=== PATIENT | female | born 1940 | race Caucasian/White ===

== ENCOUNTER 2017-02-22 09:08 | Emergency (ER) | payer MEDICARE ==
[~2017-02-22] VITALS: Ht 160 cm; Wt 63.0 kg
[~2017-02-22 09:08] MED LIST: CIPR500T89 PO; CRANPOW2 PO; DOCU10CA PO; FLAG250T PO; FLORAJEN PO; LORT5TAB PO; LOSA100T36 PO; MIRA3350 PO; ONGL1TAB9 PO; SUPRSOL2 PO
[2017-02-22] MEDS ORDERED: MORPHINE 4 MG/ML 1ML SYRINGE IV ONE (09:45)
[2017-02-22] MEDS ORDERED: ONDANSETRON 4MG/2ML VIAL (J2405) IV ONE ×2 (09:45→11:00)
[2017-02-22 10:28] LABS: BASO % 0.3 % (0.0-1.0); EOS # 0.1 K/mm3 (0.0-0.50); EOS % 1.7 % (0.0-3.0); LARGE UNSTAINED CELL # 0.1 K/mm3 (0.0-0.4); LYMPH # 1.4 K/mm3 (1.5-4.5); LYMPH % 20.5 % (24.0-44.0); MEAN CORPUSCULAR HEMOGLOBIN 33.1 pg (27.0-33.0); MEAN CORPUSCULAR HGB CONC 33.3 g/dl (32.0-36.5); MEAN CORPUSCULAR VOLUME 99.4 fl (80.0-96.0); MONO # 0.4 K/mm3 (0.0-0.8); NEUTROPHILS # 4.9 K/mm3 (1.8-7.7); NEUTROPHILS % 69.4 % (36.0-66.0); PLATELET COUNT, AUTOMATED 195 k/mm3 (150-450); RED CELL DISTRIBUTION WIDTH 12.5 % (11.5-14.5)
[2017-02-22] MEDS ORDERED: fentaNYL 100 MCG/2 ML INJECTION (J3010) IV ONE (10:30)
[2017-02-22 10:32] LABS: ALBUMIN 3.8 GM/DL (3.2-5.2); ALBUMIN/GLOBULIN RATIO 1.12 (1.00-1.93); BILIRUBIN,DIRECT 0.2 MG/DL (0.0-0.2); BILIRUBIN,TOTAL 1.2 MG/DL (0.2-1.0); CALCIUM LEVEL 9.2 MG/DL (8.8-10.2); CREATININE FOR GFR 1.11 MG/DL (0.55-1.02); GLOMERULAR FILTRATION RATE 51.2 (>39); TOTAL PROTEIN 7.2 GM/DL (6.4-8.2)
[2017-02-22] MEDS ORDERED: ISOVUE-370 76% 100ML VIAL (Q9967) As Ordered ONE (10:42)
[2017-02-22 10:43] LABS: INR 1.06
--- NOTE | 2017-02-22 11:39 | REP ---
CT ABDOMEN AND PELVIS WITH IV BUT WITHOUT ORAL CONTRAST: HISTORY: Left-sided abdominal pain. History of colon carcinoma. Comparison CT study is from November 15, 2014. CT contrast dose: 100 mL of Isovue [address] FINDINGS: Digital preliminary advance scout radiograph shows an unremarkable bowel gas pattern. The lung bases remain essentially clear. There is no evidence of pleural effusion. No focal liver mass lesion is seen. The liver and spleen are normal in size and homogeneous in texture. The gallbladder is unremarkable. No pancreatic lesion is seen. No adrenal abnormality is observed on either side. There is an infiltrative appearance of the small bowel mesenteric fat again noted. There are mesenteric lymph nodes visible within this infiltrative fat. These lymph nodes are less prominent in size than on the December 03, 2014 prior study. The patient is status post sigmoid colon resection and an anastomosis. The large area of mural thickening seen in the sigmoid colon on the [address] study is no longer apparent. There is no evidence of diverticulitis. Left colonic diverticulosis is seen. No adenopathy is seen in this region. There is some right colonic diverticulosis noted as well. A ventral hernia is seen transmitting abdominal fat on today's CT study. There is mild bilateral hydronephrosis left a little more so than right. The right-sided findings are unchanged. The left-sided hydronephrosis is more prominent today and the left proximal ureter is dilated. There is a ureteral stone visible in the left at the level of the upper sacrum. The stone measures 5.4 mm in diameter. Exam is otherwise unremarkable. IMPRESSION: 1. Obstructive 5 mm stone in the left mid ureter with hydronephrosis. 2. Status post sigmoid colon resection. Pancolonic diverticulosis without evidence of diverticulitis. 3. 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 Associated mesenteric lymph nodes have regressed somewhat since the prior study. No evidence of recurrent or metastatic malignancy. Signed by Edward Colunga MD 02/22/2017 01:19 P
--- NOTE | 2017-02-22 12:02 | ECGEPIP ---
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
[2017-02-22] MEDS ORDERED: PERC5TAB6 PO (16:09)
[2017-02-22] MEDS ORDERED: FLOM5CAP PO (16:10)
[2017-02-22] MEDS ORDERED: COLA100C3 PO (16:11)
[2017-02-22 16:34] VITALS: BP 148/73
== END 2017-02-22 16:36 | disposition home or self-care (01) ==
LOC: M ED 09:49
DX: N13.2 Hydronephrosis with renal and ureteral calculous obstruction (principal); M79.3 Panniculitis, unspecified; I10 Essential (primary) hypertension; E11.9 Type 2 diabetes mellitus without complications; Z85.72 Personal history of non-Hodgkin lymphomas; Z90.49 Acquired absence of other specified parts of digestive tract; Z90.89 Acquired absence of other organs

== ENCOUNTER 2017-02-24 11:02 | Inpatient (IN) | payer MEDICARE ==
[~2017-02-24] VITALS: Ht 160 cm; Wt 65.9 kg
[~2017-02-24 11:02] MED LIST changes: +COLA100C3 PO; +FLOM5CAP PO; +PERC5TAB6 PO
[2017-02-24] MEDS ORDERED: fentaNYL 100 MCG/2 ML INJECTION (J3010) IV ONE (11:45)
[2017-02-24] MEDS ORDERED: ONDANSETRON 4MG/2ML VIAL (J2405) IV ONE (11:45)
[2017-02-24] MEDS ORDERED: ASPIRIN 81 MG CHEW TABLET PO ONE (11:45)
[2017-02-24] MEDS ORDERED: DOCU100C PO (11:58)
[2017-02-24] MEDS ORDERED: FLOM5CAP PO (11:58)
[2017-02-24] MEDS ORDERED: VITA-121 PO (11:58)
[2017-02-24] MEDS ORDERED: VITA400C2 PO (11:58)
[2017-02-24] MEDS ORDERED: VITA-130 PO (11:58)
[2017-02-24] MEDS ORDERED: OXYC1TAB23 PO (11:58)
[2017-02-24] MEDS ORDERED: VITA500T3 PO (11:58)
--- NOTE | 2017-02-24 12:13 | REP ---
Portable chest, 02/24/2017, at 07:00 a.m., single AP view the patient sitting: Comparison is 08/25/2014. The lung garcia are clear. The cardiac size is normal. The carrie, mediastinum, and bony thorax are unremarkable. Impression: Negative portable chest. There is no interval change. Signed by Charlie Flynn MD 02/24/2017 12:05 P
[2017-02-24 12:21] LABS: BASO % 0.2 % (0.0-1.0); EOS # 0.1 K/mm3 (0.0-0.50); EOS % 0.7 % (0.0-3.0); LARGE UNSTAINED CELL # 0.1 K/mm3 (0.0-0.4); LARGE UNSTAINED CELL % 0.6 % (0.0-4.0); LYMPH # 0.6 K/mm3 (1.5-4.5); MEAN CORPUSCULAR HEMOGLOBIN 33.9 pg (27.0-33.0); MEAN CORPUSCULAR HGB CONC 34.1 g/dl (32.0-36.5); MEAN CORPUSCULAR VOLUME 99.6 fl (80.0-96.0); MONO # 0.3 K/mm3 (0.0-0.8); MONO % 3.6 % (0.0-5.0); NEUTROPHILS # 8.5 K/mm3 (1.8-7.7); PLATELET COUNT, AUTOMATED 139 k/mm3 (150-450); RED CELL DISTRIBUTION WIDTH 12.5 % (11.5-14.5); WHITE BLOOD COUNT 9.6 K/mm3 (4.0-10.0)
[2017-02-24 12:32] LABS: ALBUMIN 3.7 GM/DL (3.2-5.2); ALBUMIN/GLOBULIN RATIO 1.03 (1.00-1.93); ALKALINE PHOSPHATASE 94 U/L (45-117); ALT/SGPT 35 U/L (12-78); ANION GAP 12 MEQ/L (8-16); AST/SGOT 20 U/L (15-37); BILIRUBIN,DIRECT 0.3 MG/DL (0.0-0.2); BILIRUBIN,TOTAL 2.5 MG/DL (0.2-1.0); BLOOD UREA NITROGEN 20 MG/DL (7-18); CALCIUM LEVEL 8.8 MG/DL (8.8-10.2); CARBON DIOXIDE LEVEL 23 MEQ/L (21-32); CHLORIDE LEVEL 102 MEQ/L (98-107); CREATININE FOR GFR 1.83 MG/DL (0.55-1.02); GLOMERULAR FILTRATION RATE 28.7 (>39); GLUCOSE, FASTING 163 MG/DL (83-110); SODIUM LEVEL 137 MEQ/L (136-145); TOTAL PROTEIN 7.3 GM/DL (6.4-8.2)
[2017-02-24] MEDS ORDERED: PERCOCET 5MG/325MG TAB PO PRN (13:30)
[2017-02-24] MEDS ORDERED: GLUCAGON FOR INJ 1 MG VIAL (J1610) SC PRN (13:30)
[2017-02-24] MEDS ORDERED: cefTRIAXone SOD 1 GM in D5W MINI-BAG PLUS 50 ML IV ONE (13:30)
[2017-02-24] MEDS ORDERED: MORPHINE 2 MG/ML 1ML SYRINGE IV PRN (13:30)
[2017-02-24] MEDS ORDERED: ONDANSETRON 4 MG TAB (S0181) PO PRN (13:30)
[2017-02-24] MEDS ORDERED: ONDANSETRON 4MG/2ML VIAL (J2405) IV PRN ×2 (13:30→15:30)
[2017-02-24] MEDS ORDERED: ACETAMINOPHEN 650 MG SUPP PR ONE (13:30)
[2017-02-24] MEDS ORDERED: DEXTROSE 50% 50 ML SYRINGE IV PRN (13:30)
[2017-02-24] MEDS ORDERED: GLUCOSE 4 GM CHEW TABLET PO PRN (13:30)
[2017-02-24] MEDS ORDERED: LIDOCAINE 2% 5ML JELLY UROJET As Ordered ONE (13:50)
[2017-02-24] MEDS ORDERED: MIDAZOLAM INJ 2 MG/2 ML VIAL (J2250) As Ordered ONE (13:53)
[2017-02-24] MEDS ORDERED: fentaNYL 100 MCG/2 ML INJECTION (J3010) As Ordered ONE (13:53)
--- NOTE | 2017-02-24 13:53 | REP ---
Supine abdomen single AP view: Comparisons are the cut out press operator film for barium enema dated 08/26/[address] abdomen and pelvis dated 02/22/2017. There are multiple calcifications inferiorly in the pelvis on the left, unchanged from the prior plain film study, likely phleboliths. There is a faintly visible calcification superiorly in the pelvis on the left, possibly the calcification identified in the distal left ureter on the comparison CT. There are surgical staple lines in the midline of the pelvis and a surgical homeostasis clip , not present previously. The bowel gas pattern is normal. The skeletal structures are unremarkable. Signed by Charlie Flynn MD 02/24/2017 01:44 P
[2017-02-24] MEDS: NS 1,000 ML IV SCH (14:16)
[2017-02-24] MEDS ORDERED: PROPOFOL 200 MG/20 ML VIAL As Ordered ONE (14:58)
[2017-02-24] MEDS ORDERED: KETOROLAC 30 MG/ML VIAL (J1885) IV PRN (15:15)
--- NOTE | 2017-02-24 15:15 | REP ---
Retrograde pyelogram: There is a single intraoperative fluoroscopic views demonstrating a left ureteral stent with the proximal and distal pigtails in satisfactory locations. Fluoroscopic exposure time is 17 seconds. Fluoroscopic images are performed with last image hold technology. These images require no additional radiation. Signed by Charlie Flynn MD 02/24/2017 03:07 P
--- NOTE | 2017-02-24 15:18 | HPEPDOC ---
Medical History and Physical Date of Admission Feb 24, 2017 at 13:23 History and Physical HISTORY AND PHYSICAL Date of admission: 02/24/2017 PCP: Dr. Dubon Chief complaint: Left-sided flank and abdominal pain HPI: 76-year-old female with diabetes mellitus type 2, hypertension, hyperlipidemia, history of B-cell lymphoma status post sigmoid resection and chemotherapy who presented to the emergency department with continued pain and malaise. The patient said that she awoke on Saturday morning and was feeling poorly, but prior to that had felt well. She has a history of kidney stones approximately 10-15 years ago, and on Saturday, she was immediately able to identify the pain she felt as kidney stone pain. She came to the emergency department at that time, and a CT of the abdomen and pelvis showed a 5 mm obstructing stone in the left ureter that was causing hydronephrosis. By report of the ED, they discussed the case with the urologist publication distributor at the time, and the decision was made that the patient could be discharged home. The patient states that since going home, she has continued to be in pain and the pain medicine that she was sent home with has not alleviated it at all. The pain is located in her left flank and abdomen. She has been taking the Flomax as prescribed, and consequently, she states that she leaks almost constant urine. She has had no appetite and has not had anything to eat since yesterday. She has been nauseated, but states that she has only vomited occasionally when the pain gets really bad. Additionally, she reports a little bit of chest pain upon arrival at the ED today. However, she denies any prior episodes of chest pain, and when I interview her, she states that it has already resolved. She thinks that this might be secondary to some anxiety that she was having. 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 Negative for hypertension Social history: The patient currently lives alone. She denies any history of tobacco use. She does not drink any alcohol or use any drugs. Allergies: No known drug allergy Review of systems: General: Positive for chills, negative for fever Eyes: Negative for vision changes and ocular discharge ENT: Negative For sore throat and nose bleed Cardiovascular: Positive for chest pain that has now resolved, negative for palpitations Respiratory: Negative for cough, shortness of breath GI: Positive for nausea and vomiting, negative for diarrhea and constipation Musculoskeletal: Negative for neck pain, positive for left lower back pain Skin: Negative for rash Neuro: Positive for dizziness, negative for headache, numbness, tingling Psych: Negative for depression and suicidal ideation Endocrine: Positive for polyuria : Negative for dysuria Heme: Negative for bleeding Home meds: See below Physical exam: Vital signs: Vital Sign - Last 24 Hours 02/24/17 02/24/17 02/24/17 02/24/17 11:03 11:21 11:31 11:32 Temp 99.8 100.5 Pulse 78 84 Resp 16 B/P (MAP) 142/71 (94) Pulse Ox 98 99 O2 Delivery Room Air 02/24/17 02/24/17 02/24/17 02/24/17 11:39 12:02 12:03 12:08 Pulse 92 Resp 16 B/P (MAP) 169/87 (114) 159/79 (105) Pulse Ox 95 02/24/17 02/24/17 02/24/17 02/24/17 12:17 12:23 12:32 12:47 Pulse 94 96 94 B/P (MAP) 152/76 (101) Pulse Ox 92 94 94 02/24/17 02/24/17 02/24/17 02/24/17 12:53 13:02 13:08 13:13 Temp 102.2 Pulse 96 B/P (MAP) 139/70 (93) 141/70 (93) Pulse Ox 95 02/24/17 02/24/17 02/24/17 02/24/17 13:23 13:38 13:53 14:08 Pulse 94 92 92 112 B/P (MAP) 124/67 (86) 121/70 (87) 120/69 (86) Pulse Ox 95 94 96 96 02/24/17 14:18 Temp 100.6 B/P (MAP) Gen.: awake, alert, no acute distress Eyes: Extraocular movements intact, normal sclera ENT: Moist mucous membranes Cardiovascular: RRR, no murmurs rubs or gallops Lungs: clear to auscultation bilaterally, no rales, rhonchi, or wheeze Abdomen: Soft, decreased BS, TTP of left CVA and left upper and lower quadrants Musculoskeletal: normal range of motion Extremities: No peripheral edema Neuro: alert and oriented 3, normal speech, no focal deficits Psych: Normal mood with congruent affect Labs and radiology: See below BUN 20, creatinine 1.8 WBC 9.6, platelets 139 Troponin negative Lactate 1.5 UA shows 2+ leuk esterase, 21 wbc's, 1+ bacteria Chest x-ray is negative, CT of the abdomen and pelvis from 2 days ago she started obstructive 5 mm stone in the left ureter with hydronephrosis EKG: The machine read this as A. fib at a rate of 88, but upon review of the EKG myself, and able to identify P waves and the majority of the EKG and there is only one small portion that appears that it may have some artifact that the machine read as possible A. fib Assessment and plan: 76-year-old female with diabetes mellitus type 2, hypertension, hyperlipidemia, history of B-cell lymphoma status post sigmoid resection and chemotherapy who is admitted with a urinary tract infection and JASON secondary to obstructing left kidney stone. 1. Urinary tract infection: The patient has been febrile, but she currently has a normal white count. She has received 1 dose of Rocephin, which we will continue. Blood and urine cultures are pending. Her initial lactate is normal, but we will repeat one in several hours. 2. Obstructing left kidney stone: Upon my interview with the patient, I had spoken to Dr. Morales of urology, who planned to do an emergency stent today. By the time I am able to dictate this note, Dr. Morales has called me to inform me that he has already completed the stent without any complications. We will continue the patient's Flomax and IV fluids and allow her to eat as tolerated since the procedure is now completed. We appreciate the assistance of Dr. Morales. 3. Acute kidney injury: Baseline creatinine appears to be normal. Creatinine today is 1.8. We will continue IV fluids, but I expect this to improve now that a stent has been placed. Holding home ARB. 4. Chest pain: The patient had a brief episode of chest pain when she arrived in the ER. A troponin is negative, and an EKG does not show any evidence of acute infarct or ischemia. We will continue to trend the troponins and monitor the patient on telemetry. The initial EKG is read by the machine as being A. fib at 88, however, upon my review, I do not believe that she was in A. fib. When I examine her, she is clearly in sinus rhythm, and the heart monitor at this time shows a clear sinus rhythm. She has no history of A. fib. At this time , we will continue to monitor her on telemetry. I think that what the machine read represented some artifact. In the event that more A. fib is captured, at that time, we will complete a full workup for A. fib. 5. Diabetes mellitus type 2: When the patient is able to eat, we will use sliding scale insulin. We are currently holding her home onglyza. 6. Hypertension: Holding home ARB secondary to acute kidney injury. 7. Hyperlipidemia: The patient does not report any medications for this. DVT prophylaxis: SCDs Dispo: admit as an inpatient to the service of Dr. Hernandez CODE STATUS: Full code Vital Signs Vital Signs Date Time Temp Pulse Resp B/P (MAP) Pulse Ox O2 Delivery O2 Flow Rate FiO2 02/24/17 14:18 100.6 02/24/17 14:08 112 96 02/24/17 12:03 16 02/24/17 11:03 Room Air Laboratory Data Labs 24H Laboratory Tests 2 02/24/17 12:01: White Blood Count 9.6, Red Blood Count 3.87L, Hemoglobin 13.1, Hematocrit 38.6, Mean Corpuscular Volume 99.6H, Mean Corpuscular Hemoglobin 33.9H, Mean Corpuscular Hemoglobin Concent 34.1, Red Cell Distribution Width 12.5, Platelet Count 139L, Neutrophils (%) (Auto) 89.0H, Lymphocytes (%) (Auto) 6.0L, Monocytes (%) (Auto) 3.6, Eosinophils (%) (Auto) 0.7, Basophils (%) (Auto) 0.2, Neutrophils # (Auto) 8.5H, Lymphocytes # (Auto) 0.6L, Monocytes # (Auto) 0.3, Eosinophils # (Auto) 0.1, Basophils # (Auto) 0.0, Large Unclassified Cells % 0.6 , Large Unclassified Cells # 0.1, Urine Appearance HAZY, Urine Color YELLOW, Urine pH 5.0, Urine Specific [place] 1.023, Urine Protein NEGATIVE, Urine Glucose (UA) NEGATIVE, Urine Ketones TRACEH, Urine Urobilinogen 0.2, Urine Bilirubin NEGATIVE, Urine Leukocyte Esterase 2+H, Urine Blood NEGATIVE, Urine Nitrite NEGATIVE, Urine WBC (Auto) 21H, Urine RBC (Auto) 5H, Urine Hyaline Casts (Auto) 0, Urine Bacteria (Auto) 1+H, Urine Squamous Epithelial Cells 6, Urine Mucus (Auto) SMALL, Urine Sperm (Auto) , Anion Gap 12, Glomerular Filtration Rate 28.7L, Calcium Level 8.8, Aspartate Amino Transf (AST/SGOT) 20, Alanine Aminotransferase (ALT/SGPT) 35, Alkaline Phosphatase 94, Total Bilirubin 2.5#H, Direct Bilirubin 0.3H, Total Creatine Kinase 174, Creatine Kinase MB 1.0, Creatine Kinase MB Relative Index 0.57, Troponin I < 0.02, B- Type Natriuretic Peptide 117H, Total Protein 7.3, Albumin 3.7, Albumin/Globulin Ratio 1.03, Lipase 47L 02/24/17 14:13: Lactic Acid Level 1.5 CBC/BMP Laboratory Tests 02/24/17 12:01 Red Blood Count 3.87 L, Mean Corpuscular Volume 99.6 H, Mean Corpuscular Hemoglobin 33.9 H, Mean Corpuscular Hemoglobin Concent 34.1, Red Cell Distribution Width 12.5, Neutrophils (%) (Auto) 89.0 H, Lymphocytes (%) (Auto) 6.0 L, Monocytes (%) (Auto) 3.6, Eosinophils (%) (Auto) 0.7, Basophils (%) (Auto ) 0.2, Neutrophils # (Auto) 8.5 H, Lymphocytes # (Auto) 0.6 L, Monocytes # (Auto ) 0.3, Eosinophils # (Auto) 0.1, Basophils # (Auto) 0.0 Microbiology Microbiology 02/24/17 Blood Culture, Received Pending 02/24/17 Blood Culture, Received Pending Home Medications Scheduled Ascorbic Acid (Vitamin C) 500 Mg Tab, 500 MG PO DAILY Cholecalciferol (Vitamin D-3) 1,000 Unit Tab, 1,000 UNIT PO DAILY Cyanocobalamin (Vitamin B-12) 500 Mcg Tab, 500 MCG PO DAILY Docusate Sodium (Docusate Sodium) 100 Mg Cap, 100 MG PO DAILY Losartan Potassium (Losartan Potassium) 100 Mg Tab, 100 MG PO DAILY Saxagliptin Hydrochloride (Onglyza) 5 Mg Tab, 5 MG PO DAILY Tamsulosin Hydrochloride (Flomax) 0.4 Mg Cap, 0.4 MG PO DAILY Vitamin E (Vitamin E) 400 Unit Cap, 400 UNIT PO DAILY Scheduled PRN Oxycodone/Acetaminophen (Oxycodone/Acetaminophen 5-325 mg) 1 Tab Tab, 1 TAB PO Q6H PRN for PAIN Allergies Coded Allergies: No Known Allergies (Unverified , 08/26/14) BRIGITTE GRIFFITHS Feb 24, 2017 15:17
[2017-02-24] MEDS ORDERED: LR 1,000 ML IV SCH (15:30)
[2017-02-24] MEDS ORDERED: NORCO, ANEXSIA 5/325MG TABLET (HYDROcodone/ACETAMINOPHEN) PO PRN (15:30)
[2017-02-24] MEDS ORDERED: fentaNYL 100 MCG/2 ML INJECTION (J3010) IV PRN (15:30)
[2017-02-24 15:40] VITALS: BP 97/57
[2017-02-24 16:14] VITALS: BP 104/62
[2017-02-24] MEDS: HumaLOG INSULIN (NovoLOG) PER UNIT SC SCH ×2 (17:50→21:00)
[2017-02-24] MEDS ORDERED: HumaLOG INSULIN (NovoLOG) PER UNIT SC SCH (18:00)
--- NOTE | 2017-02-24 19:33 | ECGEPIP ---
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
[2017-02-24 20:18] VITALS: BP 118/57
--- NOTE | 2017-02-24 20:55 | RO ---
DATE OF PROCEDURE: 02/24/2017 PREOPERATIVE DIAGNOSIS: Left ureteral calculus with febrile urinary tract infection (UTI). POSTOPERATIVE DIAGNOSIS: Left ureteral calculus with febrile urinary tract infection (UTI). OPERATIVE PROCEDURE: Cystoscopic left ureteral stent placement. ANESTHESIA: Monitored anesthesia care. SURGEON: Dr. Reid Morales. OPERATIVE REPORT: After satisfactory sedation, the patient was placed in lithotomy position and vaginal area prepped and draped in the usual manner. Cystoscopy was performed and revealed changes of cystitis cysticus scattered throughout the bladder. The left ureteral orifice was cannulated with a 0.38 HiWire and fluoroscopically guided into the upper collecting system. A 5-Vietnamese multi-length stent was placed over the guidewire and positioned accordingly. The bladder was emptied and the procedure terminated. She tolerated the procedure well and sent to the recovery room in stable condition.
[2017-02-25] VITALS (7 sets, daily range): BP systolic 105–143; BP diastolic 63–70
[2017-02-25] MEDS: NS 1,000 ML IV SCH ×3 (00:29→20:26)
[2017-02-25 04:23] LABS: BASO % 0.1 % (0.0-1.0); EOS # 0.1 K/mm3 (0.0-0.50); EOS % 1.3 % (0.0-3.0); LARGE UNSTAINED CELL # 0.1 K/mm3 (0.0-0.4); LARGE UNSTAINED CELL % 1.7 % (0.0-4.0); LYMPH # 0.5 K/mm3 (1.5-4.5); LYMPH % 8.8 % (24.0-44.0); MEAN CORPUSCULAR HEMOGLOBIN 34.8 pg (27.0-33.0); MEAN CORPUSCULAR HGB CONC 35.9 g/dl (32.0-36.5); MEAN CORPUSCULAR VOLUME 96.7 fl (80.0-96.0); MONO # 0.3 K/mm3 (0.0-0.8); MONO % 7.5 % (0.0-5.0); NEUTROPHILS # 3.7 K/mm3 (1.8-7.7); NEUTROPHILS % 80.7 % (36.0-66.0); PLATELET COUNT, AUTOMATED 110 k/mm3 (150-450); RED CELL DISTRIBUTION WIDTH 12.9 % (11.5-14.5); WHITE BLOOD COUNT 4.6 K/mm3 (4.0-10.0)
[2017-02-25 04:39] LABS: ALBUMIN 2.6 GM/DL (3.2-5.2); ALBUMIN/GLOBULIN RATIO 0.93 (1.00-1.93); BILIRUBIN,TOTAL 1.1 MG/DL (0.2-1.0); CALCIUM LEVEL 7.9 MG/DL (8.8-10.2); CREATININE FOR GFR 1.04 MG/DL (0.55-1.02); GLOMERULAR FILTRATION RATE 55.1 (>39); MAGNESIUM LEVEL 1.5 MG/DL (1.8-2.4); POTASSIUM SERUM 3.9 MEQ/L (3.5-5.1); TOTAL PROTEIN 5.4 GM/DL (6.4-8.2)
[2017-02-25] MEDS ORDERED: MAG SULF 1GM/100ML (MAG RUN) 1 GM in APPROPRIATE DILUENT 1 EA IV ONE (06:30)
--- NOTE | 2017-02-25 06:46 | IPNPDOC ---
Subjective Date Seen The patient was seen on 02/25/17. Subjective Chief Complaint/HPI The patient is a 76-year-old female admitted with a reason for visit of Hydronephrosis With Obstructing Calculus. Events since last encounter Feeling much better, no pain since stent placement, wants to get out of bed, would like to go home today, Pt of Dr. Dubon Constitutional: Denies: Chills, Fever Pulmonary: Denies: Dyspnea, Cough Cardiovascular: Denies: Chest Pain, Palpitations, Orthopnea Gastrointestinal: Denies: Nausea, Vomiting, Abdominal Pain Objective Physical Examination General Exam: Positive: Alert, Cooperative, No Acute Distress Eye Exam: Negative: Sclera icteric ENT Exam: Positive: Mucous membr. moist/pink Chest Exam: Positive: Clear to auscultation, Negative: Rales, Rhonchi, Wheezing Heart Exam: Positive: Rate Normal, Regular Rhythm, Normal S1, Normal S2 Telemetry: Positive: No significant arrhythmia Abdomen Exam: Positive: Normal bowel sounds, Soft, Negative: Tenderness Extremity Exam: Negative: Edema Psych Exam: Positive: Mental status NL, Mood NL, Negative: Anxiety Assessment /Plan Problems (1) Hydronephrosis with obstructing calculus Status: Acute Problem Text: Left side, s/p Stent DR. Morales 02/24/17 Will needs outpt followup with local urologist for stent/stone removal (2) UTI (urinary tract infection) Status: Acute Problem Text: on ceftriaxone, awaiting culture consider prolonged therapy due to obstruction/instrumentation/retained stent low grade fever- should be fever free for at least 24 hours prior to dc (3) ARF (acute renal failure) Status: Acute Problem Text: improving s/p stent (4) Diabetes Status: Chronic (5) HTN (hypertension) Status: Chronic Problem Text: holding losartan (6) Hypomagnesemia Status: Acute Problem Text: replete/repeat lab (7) Anemia, macrocytic Status: Acute Problem Text: hydration effect possibly, repeat labs (8) Hyperlipidemia Status: Chronic (9) History of B-cell lymphoma Status: Chronic Problem Text: follows in [place], in remission Plan/VTE VTE Prophylaxis Ordered?: Yes VS, I&O, 24H, Fishbone Vital Signs/I&O Vital Signs Date Time Temp Pulse Resp B/P (MAP) Pulse Ox O2 Delivery O2 Flow Rate FiO2 02/25/17 04:08 100.4 89 18 137/64 (88) 94 Room Air 02/24/17 15:00 2 I&O- Last 24 Hours up to 6 AM 02/25/17 06:00 Intake Total 2730 ml Output Total 1250 ml Balance 1480 ml Laboratory Data 24H LABS Laboratory Tests 2 02/24/17 12:01: White Blood Count 9.6, Red Blood Count 3.87L, Hemoglobin 13.1, Hematocrit 38.6, Mean Corpuscular Volume 99.6H, Mean Corpuscular Hemoglobin 33.9H, Mean Corpuscular Hemoglobin Concent 34.1, Red Cell Distribution Width 12.5, Platelet Count 139L, Neutrophils (%) (Auto) 89.0H, Lymphocytes (%) (Auto) 6.0L, Monocytes (%) (Auto) 3.6, Eosinophils (%) (Auto) 0.7, Basophils (%) (Auto) 0.2, Neutrophils # (Auto) 8.5H, Lymphocytes # (Auto) 0.6L, Monocytes # (Auto) 0.3, Eosinophils # (Auto) 0.1, Basophils # (Auto) 0.0, Large Unclassified Cells % 0.6 , Large Unclassified Cells # 0.1, Urine Appearance HAZY, Urine Color YELLOW, Urine pH 5.0, Urine Specific [place] 1.023, Urine Protein NEGATIVE, Urine Glucose (UA) NEGATIVE, Urine Ketones TRACEH, Urine Urobilinogen 0.2, Urine Bilirubin NEGATIVE, Urine Leukocyte Esterase 2+H, Urine Blood NEGATIVE, Urine Nitrite NEGATIVE, Urine WBC (Auto) 21H, Urine RBC (Auto) 5H, Urine Hyaline Casts (Auto) 0, Urine Bacteria (Auto) 1+H, Urine Squamous Epithelial Cells 6, Urine Mucus (Auto) SMALL, Urine Sperm (Auto) , Anion Gap 12, Glomerular Filtration Rate 28.7L, Calcium Level 8.8, Aspartate Amino Transf (AST/SGOT) 20, Alanine Aminotransferase (ALT/SGPT) 35, Alkaline Phosphatase 94, Total Bilirubin 2.5#H, Direct Bilirubin 0.3H, Total Creatine Kinase 174, Creatine Kinase MB 1.0, Creatine Kinase MB Relative Index 0.57, Troponin I < 0.02, B- Type Natriuretic Peptide 117H, Total Protein 7.3, Albumin 3.7, Albumin/Globulin Ratio 1.03, Lipase 47L 02/24/17 14:13: Lactic Acid Level 1.5 02/24/17 17:32: Bedside Glucose (Misc Panel) 152H 02/24/17 17:58: Total Creatine Kinase 125, Creatine Kinase MB 1.0, Creatine Kinase MB Relative Index 0.80, Troponin I < 0.02 02/25/17 04:02: White Blood Count 4.6, Red Blood Count 2.86L, Hemoglobin 10.0#L, Hematocrit 27.7L, Mean Corpuscular Volume 96.7H, Mean Corpuscular Hemoglobin 34.8H, Mean Corpuscular Hemoglobin Concent 35.9, Red Cell Distribution Width 12.9, Platelet Count 110L, Neutrophils (%) (Auto) 80.7H, Lymphocytes (%) (Auto) 8.8L, Monocytes (%) (Auto) 7.5H, Eosinophils (%) (Auto) 1.3, Basophils (%) (Auto) 0.1 , Neutrophils # (Auto) 3.7, Lymphocytes # (Auto) 0.5L, Monocytes # (Auto) 0.3, Eosinophils # (Auto) 0.1, Basophils # (Auto) 0.0, Large Unclassified Cells % 1.7 , Large Unclassified Cells # 0.1, Anion Gap 5L, Glomerular Filtration Rate 55.1 , Lactic Acid Level 0.7, Blood Urea Nitrogen 16, Creatinine 1.04H, Sodium Level 141, Potassium Level 3.9, Chloride Level 109H, Carbon Dioxide Level 27, Calcium Level 7.9L, Aspartate Amino Transf (AST/SGOT) 13L, Alanine Aminotransferase (ALT /SGPT) 22, Total Creatine Kinase 102, Alkaline Phosphatase 65, Total Bilirubin 1.1#H, Total Protein 5.4#L, Albumin 2.6#L, Magnesium Level 1.5L, Creatine Kinase MB 1.0, Creatine Kinase MB Relative Index 0.98, Troponin I 0.02, Albumin/ Globulin Ratio 0.93L CBC/BMP Laboratory Tests 02/24/17 12:01 Red Blood Count 3.87 L, Mean Corpuscular Volume 99.6 H, Mean Corpuscular Hemoglobin 33.9 H, Mean Corpuscular Hemoglobin Concent 34.1, Red Cell Distribution Width 12.5, Neutrophils (%) (Auto) 89.0 H, Lymphocytes (%) (Auto) 6.0 L, Monocytes (%) (Auto) 3.6, Eosinophils (%) (Auto) 0.7, Basophils (%) (Auto ) 0.2, Neutrophils # (Auto) 8.5 H, Lymphocytes # (Auto) 0.6 L, Monocytes # (Auto ) 0.3, Eosinophils # (Auto) 0.1, Basophils # (Auto) 0.0 02/25/17 04:02 Red Blood Count 2.86 L, Mean Corpuscular Volume 96.7 H, Mean Corpuscular Hemoglobin 34.8 H, Mean Corpuscular Hemoglobin Concent 35.9, Red Cell Distribution Width 12.9, Neutrophils (%) (Auto) 80.7 H, Lymphocytes (%) (Auto) 8.8 L, Monocytes (%) (Auto) 7.5 H, Eosinophils (%) (Auto) 1.3, Basophils (%) ( Auto) 0.1, Neutrophils # (Auto) 3.7, Lymphocytes # (Auto) 0.5 L, Monocytes # ( Auto) 0.3, Eosinophils # (Auto) 0.1, Basophils # (Auto) 0.0, Calcium Level 7.9 L , Aspartate Amino Transf (AST/SGOT) 13 L, Alanine Aminotransferase (ALT/SGPT) 22 , Total Creatine Kinase 102, Alkaline Phosphatase 65, Total Bilirubin 1.1 #H, Total Protein 5.4 #L, Albumin 2.6 #L Microbiology Microbiology 02/24/17 Blood Culture, Received Pending 02/24/17 Blood Culture, Received Pending 02/25/17 Urine Culture, Received Pending XOCHITL GARCIA MD Feb 25, 2017 06:46
[2017-02-25] MEDS: ACETAMINOPHEN TAB 650MG DOSE (2X325MG) PO PRN ×2 (07:44→22:45)
[2017-02-25] MEDS: HumaLOG INSULIN (NovoLOG) PER UNIT SC SCH ×4 (07:45→20:21)
[2017-02-25] MEDS: TAMSULOSIN 0.4 MG CAP PO SCH (07:55)
[2017-02-25] MEDS ORDERED: cefTRIAXone SOD 1 GM in D5W MINI-BAG PLUS 50 ML IV SCH (14:00)
[2017-02-26 00:10] VITALS: BP 117/62
[2017-02-26 03:41] VITALS: BP 118/64
[2017-02-26] MEDS: NS 1,000 ML IV SCH (05:22)
[2017-02-26 05:42] LABS: BASO % 0.3 % (0.0-1.0); EOS # 0.1 K/mm3 (0.0-0.50); EOS % 2.6 % (0.0-3.0); LARGE UNSTAINED CELL # 0.2 K/mm3 (0.0-0.4); LYMPH # 1.1 K/mm3 (1.5-4.5); LYMPH % 21.1 % (24.0-44.0); MEAN CORPUSCULAR HEMOGLOBIN 34.5 pg (27.0-33.0); MEAN CORPUSCULAR HGB CONC 35.3 g/dl (32.0-36.5); MEAN CORPUSCULAR VOLUME 97.5 fl (80.0-96.0); MONO # 0.4 K/mm3 (0.0-0.8); MONO % 9.1 % (0.0-5.0); NEUTROPHILS # 2.8 K/mm3 (1.8-7.7); NEUTROPHILS % 62.9 % (36.0-66.0); PLATELET COUNT, AUTOMATED 110 k/mm3 (150-450); RED CELL DISTRIBUTION WIDTH 12.8 % (11.5-14.5); RETIC HEMOGLOBIN CONTENT CHr 31.5 PG (24-36); RETICULOCYTE ABSOLUTE ADVIA212 35 x10(9)/L (17-77); WHITE BLOOD COUNT 4.5 K/mm3 (4.0-10.0)
[2017-02-26 05:59] LABS: ALBUMIN 2.4 GM/DL (3.2-5.2); ALBUMIN/GLOBULIN RATIO 0.86 (1.00-1.93); ALKALINE PHOSPHATASE 63 U/L (45-117); ALT/SGPT 24 U/L (12-78); ANION GAP 6 MEQ/L (8-16); AST/SGOT 16 U/L (15-37); BILIRUBIN,TOTAL 0.6 MG/DL (0.2-1.0); BLOOD UREA NITROGEN 14 MG/DL (7-18); CALCIUM LEVEL 7.9 MG/DL (8.8-10.2); CARBON DIOXIDE LEVEL 27 MEQ/L (21-32); CHLORIDE LEVEL 109 MEQ/L (98-107); CREATININE FOR GFR 0.89 MG/DL (0.55-1.02); FERRITIN 167 NG/ML (8-252); GLOMERULAR FILTRATION RATE > 60.0 (>39); GLUCOSE, FASTING 112 MG/DL (83-110); MAGNESIUM LEVEL 1.6 MG/DL (1.8-2.4); PERCENT SATURATION 9.9 % (13.2-37.4); POTASSIUM SERUM 3.8 MEQ/L (3.5-5.1); SODIUM LEVEL 142 MEQ/L (136-145); TOTAL IRON BINDING CAPACITY 212 UG/DL (250-450); TOTAL PROTEIN 5.2 GM/DL (6.4-8.2)
[2017-02-26] MEDS: HumaLOG INSULIN (NovoLOG) PER UNIT SC SCH (07:18)
[2017-02-26 07:40] VITALS: BP 150/77
[2017-02-26] MEDS ORDERED: MAG SULF 1GM/100ML (MAG RUN) 1 GM in APPROPRIATE DILUENT 1 EA IV ONE (07:45)
[2017-02-26] MEDS: TAMSULOSIN 0.4 MG CAP PO SCH (08:09)
[2017-02-26 10:07] LABS: FOLATE 10.3 NG/ML (>5.4)
[2017-02-26] MEDS ORDERED: CEFD1CAP8 PO (11:33)
[2017-02-26 12:02] VITALS: BP 126/63
--- NOTE | 2017-02-26 16:41 | DS.PDOC ---
Discharge Summary General Date of Admission Feb 24, 2017 at 13:23 Date of Discharge 02/26/17 Primary Care Physician: Jr Dubon Collins Discharge Summary PROCEDURES PERFORMED DURING STAY: Cystoscopic left ureteral stent placement ADMITTING DIAGNOSES: 1. Left ureteral calculus with febrile urinary tract infection 2. Left hydronephrosis with obstructing calculus 3. UTI 4. JASON 5. Anemia SECONDARY DIAGNOSES: 1. Diabetes 2. HTN 3. Hyperlipidemia 4. B-cell lymphoma s/p sigmoid resection and chemo COMPLICATIONS/CHIEF COMPLAINT: Hydronephrosis With Obstructing Calculus. HOSPITAL COURSE: 76-year old female for left flank pain and malaise. She was seen in the Emergency Department and found to have a 5mm obstructing stone. She complained of urinary incontinence, poor appetite, nausea and vomiting. She was seen in consultation by urology, and underwent placement of left ureteral stent. Her JASON resolved. She was treated with IV ceftriaxone for a UTI, however her urine cultures did return with no growth. She was monitored on telemetry for some concern of possible chest pain on admission, ECG was unremarkable, troponins were negative and no events were noted on telemetry. DISCHARGE MEDICATIONS: Please see below. ALLERGIES: Please see below. PHYSICAL EXAMINATION ON DISCHARGE: VITAL SIGNS: Please see below. GENERAL: NAD HEENT: NC/AT, EOMI, PERRL NECK: supple CARDIOVASCULAR EXAMINATION: +S1S2, RRR RESPIRATORY EXAMINATION: CTA B/L ABDOMINAL EXAMINATION: soft, NT, +BS EXTREMITIES: no edema PSYCHIATRIC EXAMINATION: AAOx3 LABORATORY DATA: Please see below. PROGNOSIS: stable ACTIVITY: As tolerated. DIET: 2 gram sodium, carb consistent DISPOSITION: 01 Home, Self-Care. DISCHARGE INSTRUCTIONS: 1. Follow up with urology Dr. Morales for left ureteral stent. 2. PCP in 3-5 days. 3. Medications as directed. ITEMS TO FOLLOWUP ON ON OUTPATIENT: 1. . 2. . 3. . DISCHARGE CONDITION: [Stable]. TIME SPENT ON DISCHARGE: Greater than minutes. Vital Signs/I&Os Vital Signs Date Time Temp Pulse Resp B/P (MAP) Pulse Ox O2 Delivery O2 Flow Rate FiO2 02/26/17 12:02 98.0 72 17 126/63 (84) 95 Room Air 02/24/17 15:00 2 I&O- Last 24 Hours up to 6 AM 02/26/17 06:00 Intake Total 3830 ml Output Total 1900 ml Balance 1930 ml Laboratory Data Labs 24H Laboratory Tests 2 02/25/17 20:18: Bedside Glucose (Misc Panel) 128H 02/26/17 05:24: White Blood Count 4.5, Red Blood Count 2.94L, Hemoglobin 10.1L, Hematocrit 28.7L , Mean Corpuscular Volume 97.5H, Mean Corpuscular Hemoglobin 34.5H, Mean Corpuscular Hemoglobin Concent 35.3, Red Cell Distribution Width 12.8, Platelet Count 110L, Neutrophils (%) (Auto) 62.9, Lymphocytes (%) (Auto) 21.1L, Monocytes (%) (Auto) 9.1H, Eosinophils (%) (Auto) 2.6, Basophils (%) (Auto) 0.3 , Neutrophils # (Auto) 2.8, Lymphocytes # (Auto) 1.1L, Monocytes # (Auto) 0.4, Eosinophils # (Auto) 0.1, Basophils # (Auto) 0.0, Large Unclassified Cells % 4.0 , Large Unclassified Cells # 0.2, Absolute Reticulocyte Count 35, Percent Reticulocyte Count 1.20, Reticulocyte Hgb Content (CHr) 31.5, Anion Gap 6L, Glomerular Filtration Rate > 60.0, Blood Urea Nitrogen 14, Creatinine 0.89, Sodium Level 142, Potassium Level 3.8, Chloride Level 109H, Carbon Dioxide Level 27, Calcium Level 7.9L, Aspartate Amino Transf (AST/SGOT) 16, Alanine Aminotransferase (ALT/SGPT) 24, Alkaline Phosphatase 63, Total Bilirubin 0.6, Total Protein 5.2L, Albumin 2.4L, Magnesium Level 1.6L, Iron Level 21L, Total Iron Binding Capacity 212L, Transferrin % Saturation 9.9L, Ferritin 167, Albumin /Globulin Ratio 0.86L, Vitamin B12 Level 671, Folate 10.3 02/26/17 11:53: Bedside Glucose (Misc Panel) 150H CBC/BMP Laboratory Tests 02/26/17 05:24 Red Blood Count 2.94 L, Mean Corpuscular Volume 97.5 H, Mean Corpuscular Hemoglobin 34.5 H, Mean Corpuscular Hemoglobin Concent 35.3, Red Cell Distribution Width 12.8, Neutrophils (%) (Auto) 62.9, Lymphocytes (%) (Auto) 21.1 L, Monocytes (%) (Auto) 9.1 H, Eosinophils (%) (Auto) 2.6, Basophils (%) ( Auto) 0.3, Neutrophils # (Auto) 2.8, Lymphocytes # (Auto) 1.1 L, Monocytes # ( Auto) 0.4, Eosinophils # (Auto) 0.1, Basophils # (Auto) 0.0, Calcium Level 7.9 L , Aspartate Amino Transf (AST/SGOT) 16, Alanine Aminotransferase (ALT/SGPT) 24, Alkaline Phosphatase 63, Total Bilirubin 0.6, Total Protein 5.2 L, Albumin 2.4 L FSBS Laboratory Tests Test 02/25/17 20:18 02/26/17 11:53 Range/Units Bedside Glucose (Misc Panel) 128 150 83-110 MG/DL Microbiology Microbiology 02/24/17 Blood Culture - Preliminary, Resulted No Growth after 48 hours. All Specime... 02/24/17 Blood Culture - Preliminary, Resulted No Growth after 48 hours. All Specime... 02/25/17 Urine Culture - Final, Complete Discharge Medications Scheduled Ascorbic Acid (Vitamin C) 500 Mg Tab, 500 MG PO DAILY, (Reported) Cefdinir (Cefdinir) 300 Mg Cap, 300 MG PO BID Cholecalciferol (Vitamin D-3) 1,000 Unit Tab, 1,000 UNIT PO DAILY, (Reported) Cyanocobalamin (Vitamin B-12) 500 Mcg Tab, 500 MCG PO DAILY, (Reported) Docusate Sodium (Docusate Sodium) 100 Mg Cap, 100 MG PO DAILY, (Reported) Losartan Potassium (Losartan Potassium) 100 Mg Tab, 100 MG PO DAILY, (Reported) Saxagliptin Hydrochloride (Onglyza) 5 Mg Tab, 5 MG PO DAILY, (Reported) Tamsulosin Hydrochloride (Flomax) 0.4 Mg Cap, 0.4 MG PO DAILY, (Reported) Vitamin E (Vitamin E) 400 Unit Cap, 400 UNIT PO DAILY, (Reported) Scheduled PRN Oxycodone/Acetaminophen (Oxycodone/Acetaminophen 5-325 mg) 1 Tab Tab, 1 TAB PO Q6H PRN for PAIN, (Reported) Allergies Coded Allergies: No Known Allergies (Unverified , 08/26/14) ISABELL MEJIA MD Feb 26, 2017 16:41
== END 2017-02-26 13:08 | disposition home or self-care (01) | DRG 694 ==
LOC: M ED 11:54 → M ED INP 13:23 → M PCU 15:26
PROVIDERS: ADMIT Hospitalist; ATTEND Internal Medicine
PROC: 0T777DZ Dilation of Left Ureter with Intraluminal Device, Via Natural or Artificial Opening (ICD-10-PCS; principal; 2017-02-24 13:33)
DX: N20.2 Calculus of kidney with calculus of ureter (principal); N13.6 Pyonephrosis; N17.9 Acute kidney failure, unspecified; N39.0 Urinary tract infection, site not specified; D64.9 Anemia, unspecified; E11.9 Type 2 diabetes mellitus without complications; I10 Essential (primary) hypertension; E78.5 Hyperlipidemia, unspecified; Z92.3 Personal history of irradiation; Z79.899 Other long term (current) drug therapy; Z83.3 Family history of diabetes mellitus; Z82.49 Family history of ischemic heart disease and other diseases of the circulatory system; Z85.72 Personal history of non-Hodgkin lymphomas

== ENCOUNTER → 2017-02-28 | Outpatient (CLI) | payer MEDICARE ==
[~2017-02-28] MED LIST changes: +CEFD1CAP8 PO; +DOCU100C PO; +OXYC1TAB23 PO; +VITA-121 PO; +VITA-130 PO; +VITA400C2 PO; +VITA500T3 PO
[2017-02-28 13:41] LABS: ANION GAP 5 MEQ/L (8-16); BLOOD UREA NITROGEN 15 MG/DL (7-18); CALCIUM LEVEL 8.6 MG/DL (8.8-10.2); CARBON DIOXIDE LEVEL 31 MEQ/L (21-32); CHLORIDE LEVEL 104 MEQ/L (98-107); GLOMERULAR FILTRATION RATE > 60.0 (>39); GLUCOSE, FASTING 124 MG/DL (83-110); POTASSIUM SERUM 3.6 MEQ/L (3.5-5.1); SODIUM LEVEL 140 MEQ/L (136-145)
[2017-02-28 13:59] LABS: MEAN CORPUSCULAR HEMOGLOBIN 32.6 pg (27.0-33.0); MEAN CORPUSCULAR HGB CONC 33.3 g/dl (32.0-36.5); RED CELL DISTRIBUTION WIDTH 12.4 % (11.5-14.5); WHITE BLOOD COUNT 5.9 K/mm3 (4.0-10.0)
== END ==
LOC: M SMT 09:27
PROVIDERS: ATTEND Urology
DX: Z01.818 Encounter for other preprocedural examination (principal); N20.0 Calculus of kidney

== ENCOUNTER → 2017-03-06 | Outpatient (REF) | payer MEDICARE | LOC: M SMT 13:00 | PROVIDERS: ATTEND Urology | DX: Z01.818 Encounter for other preprocedural examination (principal); N20.0 Calculus of kidney ==

== ENCOUNTER → 2017-03-06 | Outpatient (REF) | payer MEDICARE ==
[2017-03-06 14:15] LABS: PERCENT SATURATION 12.1 % (13.2-37.4)
== END ==
LOC: M LAB REF 12:52
PROVIDERS: ATTEND Nurse Practitioner Adult Health
DX: D64.9 Anemia, unspecified (principal)

== ENCOUNTER → 2017-03-11 | Day surgery (SDC) | payer MEDICARE ==
[~2017-03-11] VITALS: Ht 160 cm; Wt 64.4 kg
[~2017-03-11] MED LIST changes: +CIPR-249 PO; -CIPR500T89 PO; -COLA100C3 PO; +COLA100C5 PO; +CONRAY-60 60% 50ML VIAL (Q9961) As Ordered ONE; -DOCU100C PO; +DOCU100C16 PO; +LIDOCAINE 2% INJ 100 MG/5 ML SDV (FOR ANES.) As Ordered ONE; +LR 1,000 ML IV ONE; +LR 1,000 ML IV SCH; +MIDAZOLAM INJ 2 MG/2 ML VIAL (J2250) As Ordered ONE; +ONDANSETRON 4MG/2ML VIAL (J2405) As Ordered ONE; +ONDANSETRON 4MG/2ML VIAL (J2405) IV PRN; +PERC5TAB12 PO; -PERC5TAB6 PO; +PERCOCET 5MG/325MG TAB PO PRN; +PROPOFOL 200 MG/20 ML VIAL As Ordered ONE; +ROCURONIUM BROMIDE 50 MG/5 ML VIAL/SYRINGE As Ordered ONE; -VITA-130 PO; -VITA400C2 PO; +VITA400C7 PO; +VITA500T PO; +dexameTHASONE 4 MG/ML 1ML VIAL (J1100) As Ordered ONE; +fentaNYL 100 MCG/2 ML INJECTION (J3010) As Ordered ONE; +fentaNYL 100 MCG/2 ML INJECTION (J3010) IV PRN; +oxyBUTYnin 5 MG TAB PO PRN
--- NOTE | 2017-03-11 13:56 | REP ---
Retrograde pyelogram: Procedures performed by the urologist, Dr. Diaz. A series of three intraoperative fluoroscopic films are performed during placement of a left ureteral stent. Final films reveal the proximal and distal pigtails to be in satisfactory locations. Fluoroscopic exposure time is 19 seconds. Fluoroscopic images are performed with last image hold technology. These images require no additional radiation Signed by Charlie Flynn MD 03/11/2017 01:48 P
[2017-03-11 14:45] VITALS: BP 181/82
--- NOTE | 2017-03-11 22:11 | RO ---
DATE OF PROCEDURE: 03/11/2017 PREPROCEDURE DIAGNOSIS: Nephrolithiasis. POSTPROCEDURE DIAGNOSIS: Nephrolithiasis. PROCEDURE: Cystoscopy, left ureteroscopy with basket extraction of stone, left retrograde pyelogram with intraoperative interpretation of images, left ureteral stent exchange. SURGEON: Hardik Diaz MD CENTRAL SERVICE TECH: None. ANESTHESIA: General. OPERATIVE INDICATIONS: This is a 76-year-old female who was recently brought to the operating room a few weeks ago for left ureteral stent placement for an obstructing 6 mm left ureteral stone. She was brought to the operating room today for treatment of her stone. DESCRIPTION OF PROCEDURE: The patient was brought to the operating room and general anesthesia was induced. Prophylactic antibiotics were infused. She was then placed in the dorsal lithotomy position and prepped and draped in the usual sterile fashion. A rigid cystoscope was then inserted into the urethral meatus and advanced into the bladder. Once it was in the bladder, a wire was advanced up the left collecting system along side the previously placed stent. We then removed the stent leaving the wire in place. Next, we went up the left collecting system with a short semirigid ureteroscope and within the distal left ureter, a 6 mm stone was seen. The stone was then grasped with a basket and removed from the left collecting system. We then went back in with the ureteroscope and examined the remainder of the ureter and no additional stones were seen. After we confirmed that there were no additional stones inside the ureter, a retrograde pyelogram was performed. It was notable for mild left hydronephrosis with no extravasation. At this point, I monitored to see if the contrast drained out the kidney and it did not. She had some moderate edema at the ureterovesical junction where the stone was impacted. Because of this, I decided to leave a stent. I then utilized the previously placed wire and advanced a #6-Belizean x 22-32 cm JJ ureteral stent up to the left collecting system over the wire. The wire was then removed and there were adequate curls of the stent in the left renal pelvis and in the bladder. The bladder was then emptied of all fluids which marked the conclusion of the procedure. The patient was then taken out of the dorsal lithotomy position, awakened from anesthesia and transported to the recovery room in stable condition. ESTIMATED BLOOD LOSS: 0 mL. INTRAOPERATIVE COMPLICATIONS: None. SPECIMENS: Kidney stone. PLAN: The patient will followup in the clinic in a week or two for stent removal. JUAN LUIS
[2017-03-25 14:10] LABS: Size 6x4x2 mm (.)
== END | disposition home or self-care (01) ==
LOC: M SDC 11:13
PROVIDERS: ATTEND Urology
DX: N20.0 Calculus of kidney (principal); I25.10 Atherosclerotic heart disease of native coronary artery without angina pectoris; I10 Essential (primary) hypertension; E78.00 Pure hypercholesterolemia, unspecified; E11.9 Type 2 diabetes mellitus without complications; E78.5 Hyperlipidemia, unspecified; R31.9 Hematuria, unspecified; K57.32 Diverticulitis of large intestine without perforation or abscess without bleeding; M51.9 Unspecified thoracic, thoracolumbar and lumbosacral intervertebral disc disorder; Z79.899 Other long term (current) drug therapy; Z79.84 Long term (current) use of oral hypoglycemic drugs; Z85.72 Personal history of non-Hodgkin lymphomas; Z78.0 Asymptomatic menopausal state; Z92.21 Personal history of antineoplastic chemotherapy; Z87.440 Personal history of urinary (tract) infections; Z98.51 Tubal ligation status
CPT/HCPCS: 52332; 52352; 74420; 82360; 88300; C1769; J0690; J1100; J2250; J2405; J3010; Q9961

== ENCOUNTER 2018-09-23 08:23 | Emergency (ER) | payer MEDICARE ==
[~2018-09-23] VITALS: Ht 160 cm; Wt 63.2 kg
[~2018-09-23 08:23] MED LIST changes: -CONRAY-60 60% 50ML VIAL (Q9961) As Ordered ONE; +FLOM0.4C39 PO; -FLOM5CAP PO; -LIDOCAINE 2% INJ 100 MG/5 ML SDV (FOR ANES.) As Ordered ONE; -LOSA100T36 PO; +LOSA100T50 PO; -LR 1,000 ML IV ONE; -LR 1,000 ML IV SCH; -MIDAZOLAM INJ 2 MG/2 ML VIAL (J2250) As Ordered ONE; -ONDANSETRON 4MG/2ML VIAL (J2405) As Ordered ONE; -ONDANSETRON 4MG/2ML VIAL (J2405) IV PRN; -PERCOCET 5MG/325MG TAB PO PRN; -PROPOFOL 200 MG/20 ML VIAL As Ordered ONE; -ROCURONIUM BROMIDE 50 MG/5 ML VIAL/SYRINGE As Ordered ONE; -dexameTHASONE 4 MG/ML 1ML VIAL (J1100) As Ordered ONE; -fentaNYL 100 MCG/2 ML INJECTION (J3010) As Ordered ONE; -fentaNYL 100 MCG/2 ML INJECTION (J3010) IV PRN; -oxyBUTYnin 5 MG TAB PO PRN
[2018-09-23] MEDS ORDERED: MECLIZINE 25 MG TABLET PO ONE (08:45)
[2018-09-23] MEDS ORDERED: NS 500 ML IV ONE (08:45)
[2018-09-23] MEDS ORDERED: diazePAM 5 MG TAB PO ONE (09:00)
--- NOTE | 2018-09-23 09:21 | REP ---
CT Head without contrast HISTORY: Altered mental status COMPARISON: 02/14/2015 Areas of decreased attenuation are present in the periventricular white matter. This represents small-vessel ischemic disease. There is no intraparenchymal hemorrhage, acute infarct, mass or midline shift. The ventricular system the ventricular system and cortical sulci are dilated consistent with mild volume loss. There is no extra cerebral collection. There is no fracture. The visualized sinuses are clear. IMPRESSION: 1. Small vessel ischemic disease. 2. Mild volume loss. Electronically Signed by Aramis Linda MD 09/23/2018 09:12 A
[2018-09-23 09:22] LABS: BASO % 0.4 % (0.0-1.0); EOS # 0.1 10^3/uL (0.0-0.50); EOS % 1.8 % (0.0-3.0); HEMATOCRIT 36.1 % (36.0-47.0); HEMOGLOBIN 12.2 g/dl (12.0-15.5); LYMPH # 1.6 10^3/uL (1.5-4.5); LYMPH % 22.4 % (24.0-44.0); MEAN CORPUSCULAR HEMOGLOBIN 32.5 pg (27.0-33.0); MEAN CORPUSCULAR HGB CONC 33.8 g/dl (32.0-36.5); MEAN CORPUSCULAR VOLUME 96.3 fl (80.0-96.0); MONO # 0.6 10^3/uL (0.0-0.8); MONO % 7.7 % (0.0-5.0); NEUTROPHILS # 4.8 10^3/uL (1.8-7.7); NEUTROPHILS % 67.3 % (36.0-66.0); PLATELET COUNT, AUTOMATED 201 10^3/uL (150-450); RED BLOOD COUNT 3.75 10^6/uL (4.00-5.40); WHITE BLOOD COUNT 7.1 10^3/uL (4.0-10.0)
[2018-09-23 09:58] LABS: ALBUMIN 3.7 GM/DL (3.2-5.2); ALT/SGPT 40 U/L (12-78); BILIRUBIN,DIRECT 0.3 MG/DL (0.0-0.2); BILIRUBIN,TOTAL 1.4 MG/DL (0.2-1.0); BLOOD UREA NITROGEN 25 MG/DL (7-18); CALCIUM LEVEL 9.3 MG/DL (8.8-10.2); CARBON DIOXIDE LEVEL 26 MEQ/L (21-32); CHLORIDE LEVEL 109 MEQ/L (98-107); CPK CREATINE PHOSPHOKINASE 116 U/L (26-192); CREATININE FOR GFR 1.13 MG/DL (0.55-1.30); GLOMERULAR FILTRATION RATE 49.8 (>39); GLUCOSE, FASTING 149 MG/DL (70-100); MB/CK RELATIVE INDEX 0.95 (< OR =4); POTASSIUM SERUM 3.9 MEQ/L (3.5-5.1); SODIUM LEVEL 143 MEQ/L (136-145); TOTAL PROTEIN 6.7 GM/DL (6.4-8.2); TROPONIN I < 0.02 NG/ML (< 0.10)
[2018-09-23 12:15] VITALS: BP 154/86
[2018-09-23] MEDS ORDERED: MECL-68 PO (12:17)
--- NOTE | 2018-09-23 18:32 | ECGEPIP ---
Stationary ECG Study [facility] - ED Test Date: 2018-09-23 Pat Name: COY KESSLER Department: Room: - Gender: F Animal Care Attendant: maribel : 1940 Requested By: Joellen Carrero Order Number: [id number] Reading MD: Hamilton Valdez Measurements Intervals [place] Rate: 69 P: 7 PA: 161 QRS: -8 QRSD: 90 T: 44 QT: 414 QTc: 444 Interpretive Statements SINUS RHYTHM MINIMAL VOLTAGE CRITERIA FOR LVH, CONSIDER NORMAL VARIANT SIMILAR TO 02/24/17 Electronically Signed On 09-23-2018 18:32:18 EST by Hamilton Valdez
== END 2018-09-23 12:38 | disposition home or self-care (01) ==
LOC: M ED 08:23
DX: H81.399 Other peripheral vertigo, unspecified ear (principal); I67.82 Cerebral ischemia; R11.10 Vomiting, unspecified; E11.9 Type 2 diabetes mellitus without complications; I10 Essential (primary) hypertension; E78.5 Hyperlipidemia, unspecified; Z79.899 Other long term (current) drug therapy

== ENCOUNTER → 2019-01-15 | Outpatient (REF) | payer MEDICARE ==
[~2019-01-15] MED LIST changes: +MECL-68 PO
== END ==
LOC: M LAB REF 13:11
PROVIDERS: ATTEND Nurse Practitioner Adult Health
DX: R19.7 Diarrhea, unspecified (principal)

== ENCOUNTER → 2020-02-25 | Outpatient (CLI) | payer MEDICARE ==
[~2020-02-25] MED LIST changes: +CYAN500T8 PO; +GASTROGRAFIN SOLUTION 30ML (Q9963) As Ordered ONE; +ISOVUE-370 76% 100ML VIAL As Ordered ONE; -MECL-68 PO; +MECL1TAB31 PO; +VITA-243 PO; -VITA500T PO; -VITA500T3 PO
--- NOTE | 2020-02-25 13:40 | REP ---
CT CHEST WITH IV CONTRAST: TECHNIQUE: Axial contrast-enhanced images from the thoracic inlet to the upper abdomen using 100 mL Isovue-370 intravenous contrast material with multiplanar reformations. The lungs are clear with no evidence of infiltrate or suspicious nodular opacity. There is no axillary, mediastinal or hilar adenopathy. Thoracic aorta is normal in caliber with no aneurysm or dissection. The heart is not enlarged. There is no pleural or pericardial effusion. There are mild diffuse degenerative changes of the spine. IMPRESSION: No significant abnormality in the chest. Electronically Signed by Charlie Kennedy MD 03/01/2020 06:01 P
--- NOTE | 2020-02-25 13:47 | REP ---
CT ABDOMEN AND PELVIS WITH ORAL AND IV CONTRAST: COMPARISON: 02/22/2017 There is no mass seen in the liver. The gallbladder is grossly unremarkable. The spleen is normal in size with no intrinsic abnormality. The adrenal glands are normal. No pancreatic mass is seen. There are bilateral parapelvic cysts similar to the prior study with no hydronephrosis. There is no abdominal aortic aneurysm. In the central mesentery, there is again diffuse ill-defined hazy opacity as seen in the prior exam, unchanged. Multiple subcentimeter mesenteric lymph nodes in this region, for the most part are unchanged. There is one new mildly enlarged lymph node in the right mesentery at the level of the kidneys which measures 1.9 x 1.2 cm. Otherwise, no significant adenopathy is seen in the abdomen or pelvis. There are subcentimeter inguinal lymph nodes bilaterally. No bowel wall thickening is seen. There is no free air or free fluid. There is a small infraumbilical hernia containing noninflamed fat. I see no pelvic mass. Urinary bladder is mildly distended and not optimally evaluated. There are mild degenerative changes of the spine. There is diffuse colonic diverticulosis without acute diverticulitis. IMPRESSION: Diffuse ill-defined mesenteric density and multiple subcentimeter mesenteric lymph nodes for the most part are unchanged. There is one new mildly enlarged mesenteric lymph node in the right mid abdomen at the level of the kidneys measuring 1.9 x 1.2 cm. Otherwise, no significant adenopathy in the abdomen or pelvis. Small infraumbilical hernia contains noninflamed fat. Electronically Signed by Charlie Kennedy MD 03/01/2020 06:05 P
== END ==
LOC: M RAD 08:42
PROVIDERS: ATTEND Internal Medicine Medical Oncology
DX: C85.93 Non-Hodgkin lymphoma, unspecified, intra-abdominal lymph nodes (principal); K42.9 Umbilical hernia without obstruction or gangrene; K57.90 Diverticulosis of intestine, part unspecified, without perforation or abscess without bleeding
CPT/HCPCS: 71260; 74177; Q9963; Q9967

== ENCOUNTER → 2020-06-16 | Outpatient (CLI) | payer MEDICARE ==
[~2020-06-16] MED LIST changes: +CIPR-250 PO
--- NOTE | 2020-06-22 12:58 | REP ---
CT ABDOMEN AND PELVIS WITH IV AND ORAL CONTRAST HISTORY: Non-Hodgkins lymphoma. COMPARISON: Comparison CT study February 25, 2020. CT CONTRAST DOSE: 100 mL of intravenous Isovue-370. CT FINDINGS: Preliminary digital refrigeration service inspector radiograph demonstrates a normal bowel gas pattern. The lung bases are clear on axial CT images. The liver and spleen are normal in size, homogeneous in texture. No abnormalities noted in the gallbladder or the pancreas. Normal adrenal glands are seen. There are parapelvic cysts in each kidney again noted bilaterally. No hydronephrosis is seen. Normal caliber aorta. There is scattered diverticulosis of the colon without CT evidence of diverticulitis. There is a ventral hernia in the suprapubic anterior abdominal wall transmitting abdominal fat unchanged. 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 There are a few scattered lymph nodes in the small bowel mesentery which are unchanged from the February 25, 2020, study. Again noted is the largest of these just to the right of the mesenteric vessels in the upper small bowel mesentery. This node measures 12 x 9 mm today, reported on February 25, 2020, as 19 x 12 mm. No new adenopathy is seen. There are two or three normal appearing periaortic lymph nodes again noted. These are unchanged even from the 2017 study. Postsurgical changes are seen in the rectosigmoid colon. No uterine or ovarian abnormality is seen. Urinary bladder is intact. IMPRESSION: Stable mesenteric lymph node and fibrotic changes. No new mass or adenopathy is seen. No organomegaly. MTDD
== END ==
LOC: M RAD 13:35
PROVIDERS: ATTEND Internal Medicine Hematology & Oncology
DX: C85.90 Non-Hodgkin lymphoma, unspecified, unspecified site (principal)
CPT/HCPCS: 74177; Q9963; Q9967

== ENCOUNTER → 2020-12-08 | Outpatient (CLI) | payer MEDICARE ==
[~2020-12-08] MED LIST changes: +CYAN500T14 PO; -CYAN500T8 PO; -GASTROGRAFIN SOLUTION 30ML (Q9963) As Ordered ONE; -ISOVUE-370 76% 100ML VIAL As Ordered ONE
--- NOTE | 2020-12-08 13:59 | REPMRS ---
Patient History The patient states she has not had a clinical breast exam in over a year. 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 No known family history of cancer. Digital Woman Screen Mammo: December 08, 2020 - Exam #: [id number] Bilateral CC and MLO view(s) were taken. Technologist: Amie Carr, Technologist Prior study comparison: April 16, 2017, digital mammo screening bilat, performed at [facility]. March 11, 2013, bilateral digital mammo screening bilat, performed at [facility]. July 10, 2010, bilateral screening mammogram, performed at [facility]. FINDINGS: There are scattered fibroglandular densities. The Volpara volumetric breast density category is:B. There has been no change in the appearance of the mammogram from the prior studies. There is a mild amount of scattered fibroglandular density which is fairly symmetric. There is no interval development of dominant mass, architectural distortion, or grouped microcalcification suggestive of malignancy. 3-D tomosynthesis shows no additional findings. Assessment: BI-RADS/ACR category 1 mammogram. Negative Mammogram. Recommendation Routine screening mammogram of both breasts in 1 year (for women over age 40). This patient's [facility] Lifetime Breast Cancer Risk is estimated at 1.8 %. This mammogram was interpreted with the aid of an FDA-approved computer-aided dectection system. Electronically Signed By: Cristo Colunga MD 12/08/20 [id number]
--- NOTE | 2020-12-08 14:17 | DEXAMM ---
INDICATION: M81.0 AGE RELATED OSTEOPOROSIS W/O FX. COMPARISON: 04/16/2017, 07/15/2003. TECHNIQUE: Bone density was measured using dual-energy x-ray absorptiometry (DEXA). FINDINGS: AP SPINE L1-L4 BMD 1.151 g/cm2 Young Adult T-Score -0.4 Age Matched Z-Score 1.5. LT FEMUR, TOTAL BMD 0.906 g/cm2 Young Adult T-Score -0.8 Age Matched Z-Score 1.1. LT NECK BMD 0.877 g/cm2 Young Adult T-Score -1.2 Age Matched Z-Score 0.9. RT FEMUR, TOTAL BMD 0.913 g/cm2 Young Adult T-Score -0.8 Age Matched Z-Score 1.2. RT NECK BMD 0.829 g/cm2 Young Adult T-Score -1.5 Age Matched Z-Score 0.6. IMPRESSION: There is normal bone density of the spine. There is low bone density of the left hip. There is low bone density of the right hip. The density of the spine has decreased 3.8% since the initial exam on 07/15/2003. The density of the spine decreased 3.0% since most recent exam on 04/16/2017. The density of the left hip has decreased 10.8% since initial exam on 07/15/2003. The density of the left hip has decreased 6.4% since most recent exam on 04/16/2017. The density of the right hip has decreased 0.5% since the initial exam on 04/16/2017. FOLLOW-UP: Recommendation for the next bone density exam: 2 years. <Electronically signed by Charlie Kennedy > 12/08/20 [id number]
== END ==
LOC: M WHC 12:42
PROVIDERS: ATTEND Internal Medicine
DX: Z12.31 Encounter for screening mammogram for malignant neoplasm of breast (principal); M81.0 Age-related osteoporosis without current pathological fracture; Z78.0 Asymptomatic menopausal state; Z85.72 Personal history of non-Hodgkin lymphomas; Z92.21 Personal history of antineoplastic chemotherapy

== ENCOUNTER → 2021-06-13 | Outpatient (REF) | payer MEDICARE ==
[~2021-06-13] MED LIST changes: +CALC1TAB42 PO; +COVI100V IM; +MULT-90 PO
== END ==
LOC: M LAB REF 11:40
PROVIDERS: ATTEND Internal Medicine
DX: R59.0 Localized enlarged lymph nodes (principal); C83.30 Diffuse large B-cell lymphoma, unspecified site

== ENCOUNTER → 2021-08-07 | Outpatient (CLI) | payer MEDICARE ==
[~2021-08-07] MED LIST changes: -CEFD1CAP8 PO; +CEFD300C41 PO; +INSU100I9; +LIDO1CRE42 TOP; +LORA1TAB4 PO; +LOSA100T45 PO; -LOSA100T50 PO; +ONDA-84 PO; +PROC10TA5 PO
== END ==
LOC: M PLARAD 10:17
PROVIDERS: ATTEND Specialist
DX: C83.39 Diffuse large B-cell lymphoma, extranodal and solid organ sites (principal)
CPT/HCPCS: 78815; A9552

== ENCOUNTER → 2021-08-12 | Outpatient (CLI) | payer MEDICARE ==
[2021-08-12 11:40] LABS: BASO % 0.8 % (0.0-1.0); EOS # 0.2 10^3/uL (0.0-0.5); EOS % 3.1 % (0.0-3.0); HEMATOCRIT 37.6 % (36.0-47.0); HEMOGLOBIN 12.4 g/dl (12.0-15.5); LYMPH # 1.6 10^3/uL (1.5-5.0); LYMPH % 30.6 % (24.0-44.0); MEAN CORPUSCULAR HEMOGLOBIN 31.5 pg (27.0-33.0); MEAN CORPUSCULAR VOLUME 95.4 fl (80.0-96.0); MONO # 0.6 10^3/uL (0.0-0.8); MONO % 10.7 % (2.0-8.0); NEUTROPHILS # 2.9 10^3/uL (1.5-8.5); NEUTROPHILS % 54.6 % (36.0-66.0); PLATELET COUNT, AUTOMATED 202 10^3/uL (150-450); RED BLOOD COUNT 3.94 10^6/uL (4.00-5.40); WHITE BLOOD COUNT 5.2 10^3/uL (4.0-10.0)
[2021-08-12 12:20] LABS: ALBUMIN 3.7 GM/DL (3.2-5.2); BILIRUBIN,TOTAL 1.5 MG/DL (0.2-1.0); CREATININE FOR GFR 1.29 MG/DL (0.55-1.30); GLOMERULAR FILTRATION RATE 42.6 (>39); POTASSIUM SERUM 4.2 MEQ/L (3.5-5.1); TOTAL PROTEIN 7.1 GM/DL (6.4-8.2)
== END ==
LOC: M LAB 10:58
PROVIDERS: ATTEND Internal Medicine Hematology & Oncology
DX: C85.90 Non-Hodgkin lymphoma, unspecified, unspecified site (principal)

== ENCOUNTER → 2021-08-17 | Outpatient (CLI) | payer MEDICARE ==
[~2021-08-17] MED LIST changes: +CEFD1CAP8 PO; -CEFD300C41 PO; -INSU100I9; -LIDO1CRE42 TOP; -LORA1TAB4 PO; -LOSA100T45 PO; +LOSA100T50 PO; -ONDA-84 PO; -PROC10TA5 PO
== END ==
LOC: M LABSMTC 10:52
PROVIDERS: ATTEND Anesthesiology
DX: Z01.812 Encounter for preprocedural laboratory examination (principal); Z20.822 Contact with and (suspected) exposure to COVID-19

== ENCOUNTER 2021-08-21 12:32 | Day surgery (SDC) | payer MEDICARE ==
[~2021-08-21] VITALS: Ht 160 cm; Wt 61.2 kg
--- OUTSIDE RECORDS SUMMARY | 2021-08-21 12:37 | CCD | Continuity of Care Document ---
Author Author Penny CORONA MD Organization Unknown Address [address], [address] [place] [address] Phone [phone] Care Team Providers Care Electrical Transmission Engineer Name Role Phone AUTM Unavailable Alfonzo Walters M.D. AUTM [phone] AUTM Unavailable Davon Riggs M.D. AUTM Unavailable Central Scheduling AUTM [phone] Problems Active Problems Provider Date Bilateral tinnitus Adi Isabel MD Onset: 11/06/2018 Dizziness and giddiness Adi Isabel MD Onset: 9 Essential hypertension Adi Isabel MD Onset: 11/06/2018 Social History Type Date Description Comments Sex Unknown ETOH Use Denies alcohol use Tobacco Use Start: Unknown Non Smoker Allergies and adverse reactions Active Allergies Criticality Reaction | Severity Comments Date Norvasc Unable to assess criticality 11/06/2018 Lipitor Unable to assess criticality 11/06/2018 Zocor Unable to assess criticality 11/06/2018 Aspirin Unable to assess criticality 11/06/2018 Metformin Unable to assess criticality 11/06/2018 Inactive Allergies NKDA Unable to assess criticality 11/06/2018 Medications Active Medications SIG Qnty Indications Ordering Provide r Date Losartan Potassium 100mg Tablets Unknown Onglyza 5mg Tablets Unknown Vitamin B12 100mcg Tablets Unknown Biotin 10mg Capsules Unknown Cranberry 200mg Capsules Unknown Probiotic Capsules Unknown Prevnar 13 Suspension 1 injection as directed Unknown Colace 100mg Capsules 1 tab by mouth twice a day before meal. avoid if having diarrhea. Unk nown Immunizations Description No Information Available Vital Signs Date Vital Result Comment 08/03/2021 9:36am BP Systolic 161 mmHg BP Diastolic 77 mmHg Heart Rate 78 /min O2 % BldC Oximetry 99 % Height 63 inches 5'3" Weight 138.00 lb BMI (Body Mass Index) 24.4 kg/m2 [place] Body Weight 115 lb Weight 62.597 kg BSA (Body Surface Area) 1.65 m2 11/06/2018 10:14am Height 63 inches 5'3" Weight 139.00 lb BMI (Body Mass Index) 24.6 kg/m2 [place] Body Weight 115 lb Weight 63.050 kg BSA (Body Surface Area) 1.66 m2 Results Description No Information Available Procedures Date Code Description Status 08/03/2021 31414 Office/Outpatient Established Mo d MDM 30-39 Min Completed Medical Devices Description No Information Available Encounters Type Date Location Provider Dx Diagnosis Office Visit 08/03/2021 9:45a [facility] Yelena Donovan R22.1 Localized swelling, mass and lump, neck Assessments Date Code Description Provider 08/03/2021 R22.1 Localized swelling, mass and lum p, neck Tor Corona MD Plan of Treatment Future Appointment(s):* 08/29/2021 11:00 am - Tor Corona MD at [facility] * 08/21/2021 2:15 pm - Tor Corona MD at [facility] Functional Status Description No Information Available Mental Status Description No Information Available Referrals Refer to Dr Reason for Referral Status Appt Seymour Nguyen MD EXCISIONAL BIOPSY RT NECK LYMPH NODE Closed 08/02/[address] [place] [phone] Charlie Gallo D.OBill EXCISIONAL BIOPSY RT NECK LYMPH NODE ASA P Created [address] [place] [address] [phone]
--- OUTSIDE RECORDS SUMMARY | 2021-08-21 12:37 | CCD | Continuity of Care Document ---
Author Author Penny CORONA MD Organization Unknown Address [address], [address] [place] [address] Phone [phone] Care Team Providers Care Equalizing Saw Operator Name Role Phone AUTM Unavailable Alfonzo Walters M.D. AUTM [phone] AUTM Unavailable Davon Riggs M.D. AUTM Unavailable Central Scheduling AUTM [phone] Problems Active Problems Provider Date Bilateral tinnitus [...] lb BMI (Body Mass Index) 24.4 kg/m2 [place] Body Weight 115 lb Weight 62.597 kg BSA (Body Surface Area) 1.65 m2 11/06/2018 10:14am Height 63 inches 5'3" Weight 139.00 lb BMI (Body Mass Index) 24.6 kg/m2 [place] Body Weight 115 lb Weight 63.050 kg BSA (Body Surface Area) 1.66 m2 Results Description No Information Available Procedures Date Code Description Status 08/03/2021 35811 Office/Outpatient Established Mo d MDM 30-39 Min Completed Medical Devices Description No Information Available Encounters Type Date Location Provider Dx Diagnosis Office Visit 08/03/2021 9:45a [facility] Yelena Donovan R22.1 Localized swelling, mass and lump, neck Assessments Date Code Description Provider 08/03/2021 R22.1 Localized swelling, mass and lum p, neck Tor Corona MD Plan of Treatment Future Appointment(s):* 08/29/2021 11:00 am - Tor Corona MD at [facility] * 08/21/2021 2:15 pm - Tor Corona MD at [facility] Functional Status Description No Information Available Mental Status Description No Information Available Referrals Refer to Dr Reason for Referral Status Appt Seymour Nguyen MD EXCISIONAL BIOPSY RT NECK LYMPH NODE Closed 08/02/[address] [place] [phone] Charlie Glalo D.OBill EXCISIONAL BIOPSY RT NECK LYMPH NODE ASA P Created [address] [place] [address] [phone]
--- OUTSIDE RECORDS SUMMARY | 2021-08-21 12:37 | CCD | Continuity of Care Document ---
Author Organization Unknown Address Unknown Phone Unavailable Care Team Providers Care Paint Crew Supervisor Name Role Phone Rusty Dubon JR, MD AUTM Unavailable Sonia Bullard DR AUTM [phone] James Matt OD AUTM [phone] [facility] Hematology/Oncology AUTM [phone] Problems Active Problems Provider Date Benign essential hypertension Rusty Dubon MD Onset: 0 04/30/2011 Type 2 diabetes mellitus Rusty Dubon MD Onset: 2010 Pure hypercholesterolemia Rusty Dubon MD Onset: 04/30 Pure hyperglyceridemia Rusty Dubon MD Onset: 04/30/20 11 Lymphadenopathy Rusty Dubon MD Onset: 04/30/2011 History of polyp of colon Rusty Dubon MD Onset: 04/30 Lymphadenopathy Rusty Dubon MD Onset: 04/30/2011 Social History Type Date Description Comments Sex Unknown ETOH Use Rarely consumes alcohol Tobacco Use Start: Unknown Patient has never smoked Allergies and adverse reactions Active Allergies Criticality Reaction | Severity Comments Date Norvasc Unable to assess criticality ZOBIE 03/13/2010 Lipitor,Zocor Unable to assess criticality MUSCLE PAIN 03/13/2010 Aspirin Unable to assess criticality stomach upset 06/12/2010 Metformin Unable to assess criticality arm muscle discomfort GI 06/11/2013 Medications Active Medications SIG Qnty Indications Ordering Provide r Date Freestyle Lancets Misc test twice a day e11.9 100units Rusty Dubon MD 06/01/2019 Freestyle Test Strips test once a day or as directed dx:e11.9 200units Rusty Dubon MD 06/01 Shingrix 50mcg Suspension Rec administer 0.5 milliliters intramuscular, repeat in 2 to 6 months 2units Rusty Dubon MD 11/25/2017 Prevnar 13 Suspension 0.5 cubic centimeters x 1 1units Rusty Dubon MD 10/13/2015 Onglyza 5mg Tablets Take One Tablet By Mouth Every Day 90tabs Magaly Sebastian,DO 09/03/2012 Freestyle Lancets 100'S use twice daily 3x's A week dx 250.00 200un its Rusty Dubon MD 06/21/2011 No OTC Meds Rusty Dubon MD Losartan Potassium 100mg Tablets take one tablet by mouth every day 90tabs Rusty Dubon MD 06/12/2010 Freestyle Glucometer Use as Directed 1units Rusty Dubon MD 01/08/2006 Medications Administered in Office Medication SIG Qnty Indications Ordering Provider Date Therapeutic Injection Injection Rusty Dubon MD 08/18/2021 Covid-19 vaccine, Unspecified Inj ection Unknown 07/21/2021 Administration Of Flu Vaccine Inj ection Gaetano Dubon, DO 06/13/20 21 Covid-19 vaccine, Unspecified Inj ection Unknown 11/24/2020 Covid-19 vaccine, Unspecified Inj ection Unknown 10/27/2020 Administration Of Flu Vaccine Inj ection Rusty Dubon MD 07/06/2016 Administration Of Flu Vaccine Inj ection Rusty Dubon MD 07/07/2015 Administration Of Flu Vaccine Inj ection Elsie Gomez, PAOLO Administration Of Flu Vaccine Inj ection Rusty Dubon MD 06/11/2013 Administration Of Flu Vaccine Inj ection Rusty Dubon MD 07/02/2011 Administration Of Flu Vaccine Inj francision Rusty Dubon MD 06/12/2010 Administration Of Flu Vaccine Inj francision Rusty Dubon MD 07/11/2009 Administration Of Flu Vaccine Inj ection Rusty Dubon MD 07/04/2005 Administration Of Flu Vaccine Inj gene Dubon MD 09/05/2004 Administration Of Flu Vaccine Inj ection Chela Escobar, PAOLO 07/07/2003 Immunizations CPT Code Status Date Vaccine Lot # [id number] Given 06/13/2021 Influenza Vaccin e Quadrivalent Preser/Antibiotic Free Im Use [id number] U-Flu Given 06/15/2020 Influenza,Unspecified U-Flu Given 07/01/2019 Influenza,Unspecified U-Flu Given 06/26/2018 Influenza,Unspecified Q2037 Given 07/06/2016 Fluvirin Virus Vaccine [id number] 01 Q2037 Given 07/07/2015 Fluvirin Virus Vaccine 30398 01 Q2037 Given 07/05/2014 Fluvirin Virus Vaccine 08291 21 Q2037 Given 06/11/2013 Fluvirin Virus Vaccine Q2037 Given 07/02/2011 Fluvirin Virus Vaccine Q2037 Given 07/02/2011 Fluvirin Virus Vaccine 61295 Given 04/30/2011 Pneumovax 23 47580 Given 06/12/2010 Influenza Virus Vaccine 91176 Given 07/11/2009 Influenza Virus Vaccine 66665 Given 06/14/2008 Influenza Virus Vaccine 27112 Given 07/01/2007 Influenza Virus Vaccine 69452 Given 08/14/2006 Influenza Virus Vaccine 38251 Given 08/14/2006 PPD 35878 Given 07/04/2005 Influenza Virus Vaccine 00292 Given 09/05/2004 Influenza Virus Vaccine 03346 Given 07/07/2003 Influenza Virus Vaccine 19107 Refused 11/25/2018 Zoster Vaccine 61159 Refused 11/25/2018 Shingrix Zoster Vaccine (HZV), Recombinant, Subunit, Adjuvanted Vital Signs Date Vital Result Comment 08/18/2021 1:48pm BP Systolic 118 mmHg BP Diastolic 72 mmHg Heart Rate 78 /min Height 63 inches 5'3" Weight 136.00 lb BMI (Body Mass Index) 24.1 kg/m2 08/08/2021 10:09am BP Systolic 122 mmHg BP Diastolic 76 mmHg Heart Rate 88 /min Height 63 inches 5'3" Weight 138.00 lb BMI (Body Mass Index) 24.4 kg/m2 Results Test Acquired Date Facility Test Result H/L Range Note CBC With Differential 08/16/[address] [address] [phone] White Blood Count 6.8 10 Normal 4.0-10.0 Red Blood Count 4.08 10 Normal 4.00-5.40 Hemoglobin 12.8 g/dL Normal 12.0-15.5 Hematocrit 38.7 % Normal 36.0-47.0 Mean Corpuscular Volume 94.9 fl Normal 80.0-96.0 Mean Corpuscular Hemoglobin 31.4 pg Normal 27.0-33.0 Mean Corpuscular HGB Conc 33.1 g/dL Normal 32.0-36.5 Red Cell Distribution Width 13.4 % Normal 11.5-14.5 Platelet Count, Automated 214 10 Normal 150-450 Neutrophils % 69.3 % High 36.0-66.0 Lymph % 20.6 % Low 24.0-44.0 [place] % 7.5 % Normal 2.0-8.0 Eos % 1.9 % Normal 0.0-3.0 Baso % 0.4 % Normal 0.0-1.0 Immature Granulocyte % 0.3 % Normal 0-3.0 Nucleated Red Blood Cell % 0.0 % Normal 0-0 Neutrophils # 4.7 10 Normal 1.5-8.5 Lymph # 1.4 10 Low 1.5-5.0 [place] # 0.5 10 Normal 0.0-0.8 Eos # 0.1 10 Normal 0.0-0.5 Baso # 0.0 10 Normal 0.0-0.2 Comprehensive Metabolic Profil 08/16/2021 [place] [id number] [phone] Glucose, Fasting 192 mg/dL High 70-100 Blood Urea Nitrogen 27 mg/dL High 7-18 Creatinine For GFR 1.45 mg/dL High 0.55-1.30 Glomerular Filtration Rate 37.2 Low >39 1 Sodium Level 142 mEq/L Normal 136-145 Potassium Serum 3.9 mEq/L Normal 3.5-5.1 Chloride Level 108 mEq/L High 98-107 Carbon Dioxide Level 24 mEq/L Normal 21-32 Anion Gap 10 mEq/L Normal 8-16 Calcium Level 9.5 mg/dL Normal 8.8-10.2 Ast/Sgot 26 U/L Normal 7-37 Alt/SGPT 44 U/L Normal 12-78 Alkaline Phosphatase 100 U/L Normal 45-117 Bilirubin,Total 1.6 mg/dL High 0.2-1.0 Total Protein 7.8 GM/DL Normal 6.4-8.2 Albumin 3.8 GM/DL Normal 3.2-5.2 Albumin/Globulin Ratio 1.0 Low 1.2-2.2 CBC With Differential 08/12/[address] [address] [phone] White Blood Count 5.2 10 Normal 4.0-10.0 Red Blood Count 3.94 10 Low 4.00-5.40 Hemoglobin 12.4 g/dL Normal 12.0-15.5 Hematocrit 37.6 % Normal 36.0-47.0 Mean Corpuscular Volume 95.4 fl Normal 80.0-96.0 Mean Corpuscular Hemoglobin 31.5 pg Normal 27.0-33.0 Mean Corpuscular HGB Conc 33.0 g/dL Normal 32.0-36.5 Red Cell Distribution Width 13.5 % Normal 11.5-14.5 Platelet Count, Automated 202 10 Normal 150-450 Neutrophils % 54.6 % Normal 36.0-66.0 Lymph % 30.6 % Normal 24.0-44.0 [place] % 10.7 % High 2.0-8.0 Eos % 3.1 % High 0.0-3.0 Baso % 0.8 % Normal 0.0-1.0 Immature Granulocyte % 0.2 % Normal 0-3.0 Nucleated Red Blood Cell % 0.0 % Normal 0-0 Neutrophils # 2.9 10 Normal 1.5-8.5 Lymph # 1.6 10 Normal 1.5-5.0 [place] # 0.6 10 Normal 0.0-0.8 Eos # 0.2 10 Normal 0.0-0.5 Baso # 0.0 10 Normal 0.0-0.2 Comprehensive Metabolic Profil 08/12/[address] [address] [phone] Glucose, Fasting 136 mg/dL High 70-100 Blood Urea Nitrogen 27 mg/dL High 7-18 Creatinine For GFR 1.29 mg/dL Normal 0.55-1.30 Glomerular Filtration Rate 42.6 Normal >39 2 Sodium Level 142 mEq/L Normal 136-145 Potassium Serum 4.2 mEq/L Normal 3.5-5.1 3 Chloride Level 111 mEq/L High 98-107 Carbon Dioxide Level 24 mEq/L Normal 21-32 Anion Gap 7 mEq/L Low 8-16 Calcium Level 9.0 mg/dL Normal 8.8-10.2 Ast/Sgot 24 U/L Normal 7-37 Alt/SGPT 40 U/L Normal 12-78 Alkaline Phosphatase 99 U/L Normal 45-117 Bilirubin,Total 1.5 mg/dL High 0.2-1.0 Total Protein 7.1 GM/DL Normal 6.4-8.2 Albumin 3.7 GM/DL Normal 3.2-5.2 Albumin/Globulin Ratio 1.1 Low 1.2-2.2 Laboratory test finding 08/12/2021 [facility] [address] [place] [address] [phone] LDH Lactate Dehydrogenase 176 U/L Normal 84-246 Complete Blood Count 08/08/2021 [facility] Kitchen Supervisor: [place] [address] [phone] WBC 5.6 x10*3/UL 4.1 - 10.9 RBC 4.03 x10*6/UL Low 4.20 - 6.30 Hemoglobin 12.7 g/dL 12.0 - 18.0 Hematocrit 36.3 % Low 37.0 - 51.0 MCV 90.2 fL 80.0 - 97.0 MCH 31.5 pg 26.0 - 32.0 MCHC 35.0 g/dL 31.0 - 38.0 RDW 13.2 % 11.6 - 13.7 PLT 214 x10*3/UL 140 - 440 MPV 9.0 FL 7.8 - 11.0 Lymph % 26.1 % 10.0 - 58.5 Mid % 5.7 % 1.7 - 9.3 Neut % 68.2 % 37.0 - 92.0 Lymph # 1.4 x10*3/UL 0.6 - 4.1 Mid # 0.4 x10*3/UL 0.1 - 0.6 Neut # 3.8 x10*3/UL 2.0 - 7.8 A1c 08/08/2021 [facility] Kitchen Supervisor: [place] [address] [phone] Hba1c 7.2 % High <5.7 4 Est Avg Glucose 160 mg/dL High 60 - 110 Comprehensive Chem Profile 08/08/2021 [facility] Kitchen Supervisor: Dr Rusty Dubon [place], [place] [id number] [phone] Glucose 144 mg/dL High 74 - 99 5 BUN 28 mg/dL High 7 - 18 Creatinine 1.2 mg/dL 0.6 - 1.3 Sodium 145 mEq/L 136 - 145 Potassium 4.3 mEq/L 3.5 - 5.1 Chloride 108 mEq/L High 98 - 107 Carbon Dioxide 27 mEq/L 21 - 32 Calcium 9.5 mg/dL 8.5 - 10.1 Alk. Phosphatase 92 mg/dL 46 - 116 Total Bilirubin 1.6 mg/dL High 0.2 - 1.0 Ast (Sgot) 26 U/L 15 - 37 Alt (SGPT) 44 U/L 12 - 78 Albumin 3.7 g/dL 3.4 - 5.0 Total Protein 7.0 g/dL 6.4 - 8.2 A/G Ratio 1.12 CALC 1.00 - 1.90 GFR 43 mL/min Low >60 GFR 53 mL/min Low >60 6 Lipid Profile 08/08/2021 [facility] Kitchen Supervisor: Dr Rusty Dubon [place], [place] [id number] [phone] Cholesterol 194 mg/dL 131 - 200 Triglycerides 127 mg/dL 30 - 150 HDL Cholesterol 43 mg/dL 35 - 60 LDL (Calculated) 126 CALC 50 - 159 Comprehensive Metabolic Profil 07/12/2021 [facility] [address] [place], [place] [id number] [phone] Glucose, Fasting 117 mg/dL High 70-100 Blood Urea Nitrogen 21 mg/dL High 7-18 Creatinine For GFR 1.21 mg/dL Normal 0.55-1.30 Glomerular Filtration Rate 45.8 Normal >39 7 Sodium Level 146 mEq/L High 136-145 Potassium Serum 4.0 mEq/L Normal 3.5-5.1 Chloride Level 114 mEq/L High 98-107 Carbon Dioxide Level 28 mEq/L Normal 21-32 Anion Gap 4 mEq/L Low 8-16 Calcium Level 9.4 mg/dL Normal 8.8-10.2 Ast/Sgot 23 U/L Normal 7-37 Alt/SGPT 41 U/L Normal 12-78 Alkaline Phosphatase 91 U/L Normal 45-117 Bilirubin,Total 1.0 mg/dL Normal 0.2-1.0 Total Protein 6.8 GM/DL Normal 6.4-8.2 Albumin 3.6 GM/DL Normal 3.2-5.2 Albumin/Globulin Ratio 1.1 Low 1.2-2.2 Laboratory test finding 07/12/[address] [address] [phone] LDH Lactate Dehydrogenase 166 U/L Normal 84-246 CBC With Differential 07/12/[address] [address] [phone] White Blood Count 6.4 10 Normal 4.0-10.0 Red Blood Count 3.81 10 Low 4.00-5.40 Hemoglobin 12.0 g/dL Normal 12.0-15.5 Hematocrit 36.4 % Normal 36.0-47.0 Mean Corpuscular Volume 95.5 fl Normal 80.0-96.0 Mean Corpuscular Hemoglobin 31.5 pg Normal 27.0-33.0 Mean Corpuscular HGB Conc 33.0 g/dL Normal 32.0-36.5 Red Cell Distribution Width 13.6 % Normal 11.5-14.5 Platelet Count, Automated 188 10 Normal 150-450 Neutrophils % 57.5 % Normal 36.0-66.0 Lymph % 28.1 % Normal 24.0-44.0 [place] % 10.7 % High 2.0-8.0 Eos % 3.0 % Normal 0.0-3.0 Baso % 0.5 % Normal 0.0-1.0 Immature Granulocyte % 0.2 % Normal 0-3.0 Nucleated Red Blood Cell % 0.0 % Normal 0-0 Neutrophils # 3.7 10 Normal 1.5-8.5 Lymph # 1.8 10 Normal 1.5-5.0 [place] # 0.7 10 Normal 0.0-0.8 Eos # 0.2 10 Normal 0.0-0.5 Baso # 0.0 10 Normal 0.0-0.2 Laboratory test finding 06/13/[address] [place] [address] [phone] LDH Lactate Dehydrogenase 188 U/L Normal 84-246 Complete Blood Count 06/13/2021 [facility] Kitchen Supervisor: Dr Rusty Dubon [place], [place] [id number] [phone] WBC 5.9 x10*3/UL 4.1 - 10.9 RBC 4.07 x10*6/UL Low 4.20 - 6.30 Hemoglobin 12.7 g/dL 12.0 - 18.0 Hematocrit 37.8 % 37.0 - 51.0 MCV 92.7 fL 80.0 - 97.0 MCH 31.1 pg 26.0 - 32.0 MCHC 33.5 g/dL 31.0 - 38.0 RDW 13.4 % 11.6 - 13.7 PLT 228 x10*3/UL 140 - 440 MPV 8.7 FL 7.8 - 11.0 Lymph % 21.0 % 10.0 - 58.5 Mid % 6.2 % 1.7 - 9.3 Neut % 72.8 % 37.0 - 92.0 Lymph # 1.2 x10*3/UL 0.6 - 4.1 Mid # 0.4 x10*3/UL 0.1 - 0.6 Neut # 4.3 x10*3/UL 2.0 - 7.8 A1c 06/13/2021 [facility] Kitchen Supervisor: [place] [address] [phone] Hba1c 7.0 % High <5.7 8 Est Avg Glucose 154 mg/dL High 60 - 110 Comprehensive Chem Profile 06/13/2021 [facility] Kitchen Supervisor: Dr Rusty Dubon [place], [place] [id number] [phone] Glucose 161 mg/dL High 74 - 99 9 BUN 24 mg/dL High 7 - 18 Creatinine 1.4 mg/dL High 0.6 - 1.3 Sodium 145 mEq/L 136 - 145 Potassium 3.9 mEq/L 3.5 - 5.1 Chloride 108 mEq/L High 98 - 107 Carbon Dioxide 27 mEq/L 21 - 32 Calcium 9.1 mg/dL 8.5 - 10.1 Alk. Phosphatase 107 mg/dL 46 - 116 Total Bilirubin 1.5 mg/dL High 0.2 - 1.0 10 Ast (Sgot) 27 U/L 15 - 37 Alt (SGPT) 44 U/L 12 - 78 Albumin 4.0 g/dL 3.4 - 5.0 Total Protein 7.1 g/dL 6.4 - 8.2 A/G Ratio 1.29 CALC 1.00 - 1.90 GFR 36 mL/min Low >60 GFR 44 mL/min Low >60 11 1 Units are mL/min/1.73 m2 Chronic Kidney Disease Staging per NKF: Stage I & II GFR >=60 Normal to Mildly Decreased Stage III GFR 30-59 Moderately Decreased Stage IV GFR 15-29 Severely Decreased Stage V GFR <15 Very Little GFR Left ESRD GFR <15 on OWNER MANAGER 2 Units are mL/min/1.73 m2 Chronic Kidney Disease Staging per NKF: Stage I & II GFR >=60 Normal to Mildly Decreased Stage III GFR 30-59 Moderately Decreased Stage IV GFR 15-29 Severely Decreased Stage V GFR <15 Very Little GFR Left ESRD GFR <15 on OWNER MANAGER 3 This specimen has an elevate d potassium level but there is NO visible hemolysis noted. 4 Lab Result Notes: Pre-Diabetes 5.7 - 6.4 % Diabetes = or > 6.5% 5 100-125 mg/dL PRE-DIABET ES/FASTING >126 mg/dL DIABETES/FASTING 6 CHRONIC KIDNEY DISEASE STAGI NG PER NKF STAGE I & II GFR >= 60 NORMAL TO MILDLY DECREASED STAGE III GFR 30-59 MODERATELY DECREASED STAGE IV GFR 15-29 SEVERELY DECREASED STAGE V GFR <15 VERY LITTLE GFR LEFT ESRD GFR <15 ON OWNER MANAGER 7 Units are mL/min/1.73 m2 Chronic Kidney Disease Staging per NKF: Stage I & II GFR >=60 Normal to Mildly Decreased Stage III GFR 30-59 Moderately Decreased Stage IV GFR 15-29 Severely Decreased Stage V GFR <15 Very Little GFR Left ESRD GFR <15 on OWNER MANAGER 8 Lab Result Notes: Pre-Diabetes 5.7 - 6.4 % Diabetes = or > 6.5% 9 100-125 mg/dL PRE-DIABET ES/FASTING >126 mg/dL DIABETES/FASTING 10 NOTE: RESULT VERIFIED. 11 CHRONIC KIDNEY DISEASE STAGI NG PER NKF STAGE I & II GFR >= 60 NORMAL TO MILDLY DECREASED STAGE III GFR 30-59 MODERATELY DECREASED STAGE IV GFR 15-29 SEVERELY DECREASED STAGE V GFR <15 VERY LITTLE GFR LEFT ESRD GFR <15 ON OWNER MANAGER Procedures Date Code Description Status 08/18/2021 24363 Therapeutic Injection Completed 06/13/2021 15550 Office/Outpatient Established Mo d MDM 30-39 Min Completed 12/08/2020 [id number] Bone Mineral Density Test Comple taqueria 12/08/2020 [id number] Mammogram Completed 03/27/2019 [id number] Diabetic Retinal Eye Exam Comple [facility]eria 04/16/2017 [id number] Bone Mineral Density Test Comple taqueria 04/16/2017 [id number] Mammogram Completed 02/21/2017 [id number] Diabetic Retinal Eye Exam Comple taqueria 07/06/2015 [id number] Diabetic Retinal Eye Exam Comple [facility] 08/26/2014 [id number] Colonoscopy Completed 04/30/2013 [id number] Colonoscopy Completed 04/28/2013 [id number] Diabetic Retinal Eye Exam Comple [facility]queria 03/11/2013 [id number] Mammogram Completed 03/08/2013 [id number] Mammogram Completed 06/14/2011 183129028 Diabetic Retinal Eye Exam Comple [facility] 08/31/2010 [id number] Colonoscopy Completed 07/10/2010 [id number] Mammogram Completed 07/15/2003 [id number] Bone Mineral Density Test Comple [facility] Medical Devices Description No Information Available Encounters Type Date Location Provider Dx Diagnosis Office Visit 06/13/2021 8:40a [facility] 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 Rusty Dubon MD 08/18/2021 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 Rusty Dubon MD 08/18/2021 I12.9 Hypertensive chronic kidney dise ase with stage 1 through sta Rusty Dubon MD 08/18/2021 N18.32 Chronic kidney disease, stage 3b Rusty Dubon MD 08/18/2021 E78.00 Pure hypercholesterolemia, unspe cified Rusty Dubon MD 08/08/2021 R59.0 Cervical lymphadenopathy Rusty Dubon MD 08/08/2021 C83.30 Diffuse large B-cell lymphoma, u nspecified site Rusty Dubon MD 08/08/2021 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 Rusty Dubon MD 08/08/2021 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 Rusty Dubon MD 08/08/2021 I12.9 Hypertensive chronic kidney dise ase with stage 1 through sta Rusty Dubon MD 08/08/2021 N18.32 Chronic kidney disease, stage 3b Rusty Dubon MD 08/08/2021 E78.00 Pure hypercholesterolemia, unspe cified Rusty Dubon MD 08/08/2021 M85.9 Disorder of bone density and str ucture, unspecified Rusty Duobn MD 06/13/2021 R59.0 Cervical lymphadenopathy Zack Dubon, 06/13/2021 C83.30 Diffuse large B-cell lymphoma, u nspecified site Geatano Dubon, 06/13/2021 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 * 02/14/2022 2:00 pm - Rusty Dubon MD at [facility] * 02/14/2022 1:40 pm - Nurse #2 at [facility] 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
--- OUTSIDE RECORDS SUMMARY | 2021-08-21 12:37 | CCD | Continuity of Care Document ---
Author Author Penny Dubon MD Organization Unknown Address [address] [place] [address] Phone [phone] Care Team Providers Care Blindmaker Name Role Phone Rusty Dubon JR, MD AUTM Unavailable Sonia Bullard DR AUTM [phone] James Matt ALIYAH AUTM [phone] [facility] Hematology/Oncology AUTM [phone] Problems Active Problems Provider Date Benign essential [...] once a day or as directed dx:e11.9 200unclaudio Dubon MD 06/01 Shingrix 50mcg Suspension Rec administer 0.5 milliliters intramuscular, repeat in 2 to 6 months 2unclaudio Dubon MD 11/25/2017 Prevnar 13 Suspension 0.5 cubic centimeters x 1 1unclaudio Dubon MD 10/13/2015 Onglyza 5mg Tablets Take One Tablet By Mouth Every Day 90tabs Magaly Sebastian DO 09/03/2012 Freestyle Lancets 100'S use twice daily 3x's A week dx 250.00 200un its Rusty Dubon MD 06/21/2011 No OTC Meds Rusty Dubon MD Losartan Potassium 100mg Tablets take one tablet by mouth every day 90tabs Rusty Dubon MD 06/12/2010 Freestyle Glucometer Use as Directed 1unclaudio Dubon MD 01/08/2006 Medications Administered in Office Medication SIG Qnty Indications Ordering Provider Date Therapeutic Injection Injection Rusty Dubon MD 08/18/2021 Covid-19 vaccine, Unspecified Inj ection Unknown 07/21/2021 Administration Of Flu Vaccine Inj ection Gaetano Dubon DO 06/13/20 Covid-19 vaccine, Unspecified Inj ection Unknown 11/24/2020 Covid-19 vaccine, Unspecified Inj ection Unknown 10/27/2020 Administration Of Flu Vaccine Inj ection Rusty Dubon MD 07/06/2016 Administration Of Flu Vaccine Inj ection Rusty Dubon MD 07/07/2015 Administration Of Flu Vaccine Inj ection Elsie Gomez, ANP Administration Of Flu Vaccine Inj gene Dubon MD 06/11/2013 Administration Of Flu Vaccine Inj ectnolan Dubon MD 07/02/2011 Administration Of Flu Vaccine Inj gene Dubon MD 06/12/2010 Administration Of Flu Vaccine Inj gene Dubon MD 07/11/2009 Administration Of Flu Vaccine Inj ection Rusty Dubon MD 07/04/2005 Administration Of Flu Vaccine Inj ection Rusty Dubon MD 09/05/2004 Administration Of Flu Vaccine Inj ection PAOLO Sen 07/07/2003 Immunizations CPT Code Status Date Vaccine Lot # [id number] Given 06/13/2021 Influenza Vaccin e Quadrivalent Preser/Antibiotic Free Im Use [id number] U-Flu Given 06/15/2020 Influenza,Unspecified U-Flu Given 07/01/2019 Influenza,Unspecified U-Flu Given 06/26/2018 Influenza,Unspecified Q2037 Given 07/06/2016 Fluvirin Virus Vaccine 82865 01 Q2037 Given 07/07/2015 Fluvirin Virus Vaccine 38339 01 Q2037 Given 07/05/2014 Fluvirin Virus Vaccine [id number] 21 Q2037 Given 06/11/2013 Fluvirin Virus Vaccine Q2037 Given 07/02/2011 Fluvirin Virus Vaccine Q2037 Given 07/02/2011 Fluvirin Virus Vaccine 78295 Given 04/30/2011 Pneumovax 23 57421 Given 06/12/2010 Influenza Virus Vaccine 00688 Given 07/11/2009 Influenza Virus Vaccine 67788 Given 06/14/2008 Influenza Virus Vaccine 00348 Given 07/01/2007 Influenza Virus Vaccine 91496 Given 08/14/2006 Influenza Virus Vaccine 33232 Given 08/14/2006 PPD 64215 Given 07/04/2005 Influenza Virus Vaccine 69722 Given 09/05/2004 Influenza Virus Vaccine 57898 Given 07/07/2003 Influenza Virus Vaccine 52146 Refused 11/25/2018 Zoster Vaccine 04965 Refused 11/25/2018 Shingrix Zoster Vaccine (HZV), Recombinant, [...] H/L Range Note CBC With Differential 08/16/2021 [facility] [address] [place] [address] [phone] White Blood Count 6.8 10 Normal 4.0-10.0 [...] 36.0-66.0 Lymph % 20.6 % Low 24.0-44.0 Stafford % 7.5 % Normal 2.0-8.0 Eos % 1.9 % Normal 0.0-3.0 Baso % 0.4 % Normal 0.0-1.0 Immature Granulocyte % 0.3 % Normal 0-3.0 Nucleated Red Blood Cell % 0.0 % Normal 0-0 Neutrophils # 4.7 10 Normal 1.5-8.5 Lymph # 1.4 10 Low 1.5-5.0 Stafford # 0.5 10 Normal 0.0-0.8 Eos # 0.1 10 Normal 0.0-0.5 Baso # 0.0 10 Normal 0.0-0.2 Comprehensive Metabolic Profil 08/16/[address] [id number] [phone] Glucose, Fasting 192 mg/dL High 70-100 Blood [...] 1.0 Low 1.2-2.2 CBC With Differential 08/12/[address] [address] [phone] White Blood Count 5.2 10 Normal 4.0-10.0 [...] 36.0-66.0 Lymph % 30.6 % Normal 24.0-44.0 Stafford % 10.7 % High 2.0-8.0 Eos % 3.1 % High 0.0-3.0 Baso % 0.8 % Normal 0.0-1.0 Immature Granulocyte % 0.2 % Normal 0-3.0 Nucleated Red Blood Cell % 0.0 % Normal 0-0 Neutrophils # 2.9 10 Normal 1.5-8.5 Lymph # 1.6 10 Normal 1.5-5.0 Stafford # 0.6 10 Normal 0.0-0.8 Eos # 0.2 10 Normal 0.0-0.5 Baso # 0.0 10 Normal 0.0-0.2 Comprehensive Metabolic Profil 08/12/[address] [address] [phone] Glucose, Fasting 136 mg/dL High 70-100 Blood [...] 1.1 Low 1.2-2.2 Laboratory test finding 08/12/2021 [address] [place], [place] [id number] [phone] LDH Lactate Dehydrogenase 176 U/L Normal 84-246 Complete Blood Count 08/08/2021 [facility] Laminating Machine Tender: [place] [address] [phone] WBC 5.6 x10*3/UL 4.1 - 10.9 RBC [...] 3.8 x10*3/UL 2.0 - 7.8 A1c 08/08/2021 [facility] Laminating Machine Tender: Dr Rusty Dubon [place], [place] [id number] [phone] Hba1c 7.2 % High <5.7 4 Est Avg Glucose 160 mg/dL High 60 - 110 Comprehensive Chem Profile 08/08/2021 [facility] Laminating Machine Tender: Dr Rusty Dubon [place], [place] [id number] [phone] Glucose 144 mg/dL High 74 - 99 [...] mL/min Low >60 6 Lipid Profile 08/08/2021 [facility] , Laminating Machine Tender: Dr Rusty Dubon [place], [place] [id number] [phone] Cholesterol 194 mg/dL 131 - 200 Triglycerides 127 mg/dL 30 - 150 HDL Cholesterol 43 mg/dL 35 - 60 LDL (Calculated) 126 CALC 50 - 159 Comprehensive Metabolic Profil 07/12/2021 [facility] [address] [place], [place] [id number] [phone] Glucose, Fasting 117 mg/dL High 70-100 Blood [...] 1.1 Low 1.2-2.2 Laboratory test finding 07/12/[address] [address] [phone] LDH Lactate Dehydrogenase 166 U/L Normal 84-246 CBC With Differential 07/12/[address] [address] [phone] White Blood Count 6.4 10 Normal 4.0-10.0 [...] 36.0-66.0 Lymph % 28.1 % Normal 24.0-44.0 Stafford % 10.7 % High 2.0-8.0 Eos % 3.0 % Normal 0.0-3.0 Baso % 0.5 % Normal 0.0-1.0 Immature Granulocyte % 0.2 % Normal 0-3.0 Nucleated Red Blood Cell % 0.0 % Normal 0-0 Neutrophils # 3.7 10 Normal 1.5-8.5 Lymph # 1.8 10 Normal 1.5-5.0 Stafford # 0.7 10 Normal 0.0-0.8 Eos # 0.2 10 Normal 0.0-0.5 Baso # 0.0 10 Normal 0.0-0.2 Laboratory test finding 06/13/2021 [facility] [address] [place] [address] [phone] LDH Lactate Dehydrogenase 188 U/L Normal 84-246 Complete Blood Count 06/13/2021 [facility] Laminating Machine Tender: [place] [address] [phone] WBC 5.9 x10*3/UL 4.1 - 10.9 RBC [...] 4.3 x10*3/UL 2.0 - 7.8 A1c 06/13/2021 [facility] Laminating Machine Tender: [place] [address] [phone] Hba1c 7.0 % High <5.7 8 Est Avg Glucose 154 mg/dL High 60 - 110 Comprehensive Chem Profile 06/13/2021 [facility] L[employer] Machine Tender: [place] [address] [phone] Glucose 161 mg/dL High 74 - 99 [...] Little GFR Left ESRD GFR <15 on SENIOR SOFTWARE DEVELOPMENT MANAGER 2 Units are mL/min/1.73 m2 Chronic Kidney Disease Staging per NKF: Stage I & II GFR >=60 Normal to Mildly Decreased Stage III GFR 30-59 Moderately Decreased Stage IV GFR 15-29 Severely Decreased Stage V GFR <15 Very Little GFR Left ESRD GFR <15 on SENIOR SOFTWARE DEVELOPMENT MANAGER 3 This specimen has an elevate [...] LITTLE GFR LEFT ESRD GFR <15 ON SENIOR SOFTWARE DEVELOPMENT MANAGER 7 Units are mL/min/1.73 m2 Chronic Kidney Disease Staging per NKF: Stage I & II GFR >=60 Normal to Mildly Decreased Stage III GFR 30-59 Moderately Decreased Stage IV GFR 15-29 Severely Decreased Stage V GFR <15 Very Little GFR Left ESRD GFR <15 on SENIOR SOFTWARE DEVELOPMENT MANAGER 8 Lab Result Notes: Pre-Diabetes 5.7 [...] LITTLE GFR LEFT ESRD GFR <15 ON SENIOR SOFTWARE DEVELOPMENT MANAGER Procedures Date Code Description Status 08/18/2021 18841 Therapeutic Injection Completed 06/13/2021 26960 Office/Outpatient Established Mo d MDM 30-39 Min Completed 12/08/2020 [id number] Bone Mineral Density Test Comple taqueria 12/08/2020 [id number] Mammogram Completed 03/27/2019 [id number] Diabetic Retinal Eye Exam Comple taqueria 04/16/2017 [id number] Bone Mineral Density Test Comple taqueria 04/16/2017 [id number] Mammogram Completed 02/21/2017 [id number] Diabetic Retinal Eye Exam Comple taqueria 07/06/2015 867343935 Diabetic Retinal Eye Exam Comple taqueria 08/26/2014 [id number] Colonoscopy Completed 04/30/2013 [id number] Colonoscopy Completed 04/28/2013 [id number] Diabetic Retinal Eye Exam Comple taqueria 03/11/2013 [id number] Mammogram Completed 03/08/2013 11120140 Mammogram Completed 06/14/2011 [id number] Diabetic Retinal Eye Exam Comple taqueria 08/31/2010 [id number] Colonoscopy Completed 07/10/2010 [id number] Mammogram Completed 07/15/2003 [id number] Bone Mineral Density Test Comple [facility] Medical Devices Description No Information Available Encounters Type Date Location Provider Dx Diagnosis Office Visit 06/13/2021 8:40a [facility] 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 * 02/14/2022 2:00 pm - Rusty Dubon MD at [facility] * 02/14/2022 1:40 pm - Nurse #2 at [facility] Functional Status Description No Information Available Mental Status Description No Information Available Referrals Refer to Dr Reason for Referral Status Appt Date David Cobos JR, MD CONSULT FOR RT CERVICAL LYMPHADENOPATHY C reated [facility] General Surgery [address] [facility] [address] [facility] [address] [phone]
--- OUTSIDE RECORDS SUMMARY | 2021-08-21 12:38 | CCD | Continuity of Care Document ---
Author Author Penny LOZA DO Organization Unknown Address [address] [place] [address] Phone [phone] Care Team Providers Care Housecleaner Name Role Phone Rusty Loza JR, MD AUTM Unavailable Sonia Bullard DR AUTM [phone] James Matt ALIYAH AUTM [phone] [facility] [place] Hematology/Oncology AUTM [phone] Problems Active Problems Provider Date Benign essential hypertension Rusty Loza MD Onset: 0 04/30/2011 Type 2 diabetes mellitus Rusty Loza MD Onset: 2010 Pure hypercholesterolemia Rusty Loza MD Onset: 04/30 Pure hyperglyceridemia Rusty Loza MD Onset: 04/30/20 11 Lymphadenopathy Rusty Loza MD Onset: 04/30/2011 History of polyp of colon Rusty Loza MD Onset: 04/30 Lymphadenopathy Rusty Loza MD Onset: 04/30/2011 Social History Type Date Description Comments Sex Unknown ETOH Use Rarely consumes alcohol Tobacco Use Start: Unknown Patient has never smoked Allergies, Adverse Reactions, Alerts Active Allergies Criticality Reaction | Severity Comments Date Norvasc Unable to assess criticality ZOBIE 03/13/2010 Lipitor,Zocor Unable to assess criticality MUSCLE PAIN 03/13/2010 Aspirin Unable to assess criticality stomach upset 06/12/2010 Metformin Unable to assess criticality arm muscle discomfort GI 06/11/2013 Medications Active Medications SIG Qnty Indications Ordering Provide r Date Freestyle Lancets Misc test twice a day e11.9 100units Rusty Loza MD 06/01/2019 Freestyle Test Strips test once a day or as directed dx:e11.9 200unclaudio Loza MD 06/01 Shingrix 50mcg Suspension Rec administer 0.5 milliliters intramuscular, repeat in 2 to 6 months 2unclaudio Loza MD 11/25/2017 Prevnar 13 Suspension 0.5 cubic centimeters x 1 1unclaudio Loza MD 10/13/2015 Onglyza 5mg Tablets Take One Tablet By Mouth Every Day 90tabs Magaly Sebastian DO 09/03/2012 Freestyle Lancets 100'S use twice daily 3x's A week dx 250.00 200un its Rusty Loza MD 06/21/2011 No OTC Meds Rusty Loza MD Losartan Potassium 100mg Tablets take one tablet by mouth every day 90tabs Rusty Loza MD 06/12/2010 Freestyle Glucometer Use as Directed 1unclaudio Loza MD 01/08/2006 Medications Administered in Office Medication SIG Qnty Indications Ordering Provider Date Covid-19 vaccine, Unspecified Inj ection Unknown 11/24/2020 Covid-19 vaccine, Unspecified Inj ection Unknown 10/27/2020 Administration Of Flu Vaccine Inj ectnolan Loza MD 07/06/2016 Administration Of Flu Vaccine Inj ectnolan Loza MD 07/07/2015 Administration Of Flu Vaccine Inj ection Elsie Gomez, ANP 4 Administration Of Flu Vaccine Inj ectnolan Loza MD 06/11/2013 Administration Of Flu Vaccine Inj ection Rusty Loza MD 07/02/2011 Administration Of Flu Vaccine Inj ection Rusty Loza MD 06/12/2010 Administration Of Flu Vaccine Inj ection Rusty Loza MD 07/11/2009 Administration Of Flu Vaccine Inj ection Rusty Loza MD 07/04/2005 Administration Of Flu Vaccine Inj ectnolan Loza MD 09/05/2004 Administration Of Flu Vaccine Inj ection Chela Escobar, PAOLO 07/07/2003 Immunizations CPT Code Status Date Vaccine Lot # [id number] Given 06/13/2021 Influenza Vaccin e Quadrivalent Preser/Antibiotic Free Im Use [id number] U-Flu Given 06/15/2020 Influenza,Unspecified U-Flu Given 07/01/2019 Influenza,Unspecified U-Flu Given 06/26/2018 Influenza,Unspecified Q2037 Given 07/06/2016 Fluvirin Virus Vaccine 06918 01 Q2037 Given 07/07/2015 Fluvirin Virus Vaccine [id number] 01 Q2037 Given 07/05/2014 Fluvirin Virus Vaccine 06314 21 Q2037 Given 06/11/2013 Fluvirin Virus Vaccine Q2037 Given 07/02/2011 Fluvirin Virus Vaccine Q2037 Given 07/02/2011 Fluvirin Virus Vaccine 84692 Given 04/30/2011 Pneumovax 23 78941 Given 06/12/2010 Influenza Virus Vaccine 52599 Given 07/11/2009 Influenza Virus Vaccine 89975 Given 06/14/2008 Influenza Virus Vaccine 36201 Given 07/01/2007 Influenza Virus Vaccine 18402 Given 08/14/2006 Influenza Virus Vaccine 36641 Given 08/14/2006 PPD 92766 Given 07/04/2005 Influenza Virus Vaccine 38759 Given 09/05/2004 Influenza Virus Vaccine 97426 Given 07/07/2003 Influenza Virus Vaccine 68661 Refused 11/25/2018 Zoster Vaccine [id number] Refused 11/25/2018 Shingrix Zoster Vaccine (HZV), Recombinant, Subunit, Adjuvanted Vital Signs Date Vital Result Comment 06/13/2021 8:37am BP Systolic 124 mmHg BP Diastolic 82 mmHg Heart Rate 79 /min Height 63 inches 5'3" Weight 135.00 lb O2 % BldC Oximetry 99 % BMI (Body Mass Index) 23.9 kg/m2 02/01/2021 10:28am BP Systolic 126 mmHg BP Diastolic 68 mmHg Heart Rate 74 /min Height 63 inches 5'3" Weight 140.00 lb O2 % BldC Oximetry 98 % RM Air BMI (Body Mass Index) 24.8 kg/m2 Results Test Acquired Date Facility Test Result H/L Range Note Laboratory test finding 06/13/2021 [facility] [address] [place] [address] [phone] LDH Lactate Dehydrogenase 188 U/L Normal 84-246 Complete Blood Count 06/13/2021 [facility]: Dr Rusty Loza [place], [place] [id number] [phone] WBC 5.9 x10*3/UL 4.1 - 10.9 RBC [...] 4.3 x10*3/UL 2.0 - 7.8 A1c 06/13/2021 [facility] [place]: [place] [address] [phone] Hba1c 7.0 % High <5.7 1 Est Avg Glucose 154 mg/dL High 60 - 110 Comprehensive Chem Profile 06/13/2021 [facility] [facility]: [place] [address] [phone] Glucose 161 mg/dL High 74 - 99 2 BUN 24 mg/dL High 7 - 18 Creatinine 1.4 mg/dL High 0.6 - 1.3 Sodium 145 mEq/L 136 - 145 Potassium 3.9 mEq/L 3.5 - 5.1 Chloride 108 mEq/L High 98 - 107 Carbon Dioxide 27 mEq/L 21 - 32 Calcium 9.1 mg/dL 8.5 - 10.1 Alk. Phosphatase 107 mg/dL 46 - 116 Total Bilirubin 1.5 mg/dL High 0.2 - 1.0 3 Ast (Sgot) 27 U/L 15 - 37 Alt (SGPT) 44 U/L 12 - 78 Albumin 4.0 g/dL 3.4 - 5.0 Total Protein 7.1 g/dL 6.4 - 8.2 A/G Ratio 1.29 CALC 1.00 - 1.90 GFR 36 mL/min Low >60 GFR 44 mL/min Low >60 4 Complete Blood Count 02/01/2021 [facility] [employer]: [place] [address] [phone] WBC 4.8 x10*3/UL 4.1 - 10.9 RBC 3.79 x10*6/UL Low 4.20 - 6.30 Hemoglobin 12.1 g/dL 12.0 - 18.0 Hematocrit 34.6 % Low 37.0 - 51.0 MCV 91.1 fL 80.0 - 97.0 MCH 31.8 pg 26.0 - 32.0 MCHC 34.9 g/dL 31.0 - 38.0 RDW 12.9 % 11.6 - 13.7 PLT 204 x10*3/UL 140 - 440 MPV 8.5 FL 7.8 - 11.0 Lymph % 33.9 % 10.0 - 58.5 Mid % 8.3 % 1.7 - 9.3 Neut % 57.8 % 37.0 - 92.0 Lymph # 1.6 x10*3/UL 0.6 - 4.1 Mid # 0.4 x10*3/UL 0.1 - 0.6 Neut # 2.8 x10*3/UL 2.0 - 7.8 A1c 02/01/2021 [facility] [place]: [place] [address] [phone] Hba1c 7.0 % High <5.7 5 Est Avg Glucose 154 mg/dL High 60 - 110 Comprehensive Chem Profile 02/01/2021 [facility] [employer]: [place] [address] [phone] Glucose 132 mg/dL High 74 - 99 6 BUN 29 mg/dL High 7 - 18 Creatinine 1.5 mg/dL High 0.6 - 1.3 Sodium 144 mEq/L 136 - 145 Potassium 4.1 mEq/L 3.5 - 5.1 Chloride 107 mEq/L 98 - 107 Carbon Dioxide 30 mEq/L 21 - 32 Calcium 8.5 mg/dL 8.5 - 10.1 Alk. Phosphatase 100 mg/dL 46 - 116 Total Bilirubin 1.5 mg/dL High 0.2 - 1.0 Ast (Sgot) 23 U/L 15 - 37 Alt (SGPT) 35 U/L 12 - 78 Albumin 3.8 g/dL 3.4 - 5.0 Total Protein 6.8 g/dL 6.4 - 8.2 A/G Ratio 1.27 CALC 1.00 - 1.90 GFR 34 mL/min Low >60 GFR 41 mL/min Low >60 7 Lipid Profile 02/01/2021 [facility] , [employer]: [place] [address] [phone] Cholesterol 171 mg/dL 131 - 200 Triglycerides 193 mg/dL High 30 - 150 HDL Cholesterol 40 mg/dL 35 - 60 LDL (Calculated) 92 CALC 50 - 159 Microalbumin/Creatinine Urine 02/01/2021 [facility]: Dr Rusty Loza [place], [place] [id number] [phone] Microalbumin Urine 10.4 mg/L 1.3 - 20.0 Urine Creatinine 163.5 mg/dL High 30.0 - 125.0 Microalb/Creat Ratio 6.4 ug/mg 0.0 - 30.0 CBC With Differential 01/27/2021 [facility] [address] [place] [address] [phone] White Blood Count 5.2 10 Normal 4.0-10.0 Red Blood Count 3.81 10 Low 4.00-5.40 Hemoglobin 12.0 g/dL Normal 12.0-15.5 Hematocrit 37.3 % Normal 36.0-47.0 Mean Corpuscular Volume 97.9 fl High 80.0-96.0 Mean Corpuscular Hemoglobin 31.5 pg Normal 27.0-33.0 Mean Corpuscular HGB Conc 32.2 g/dL Normal 32.0-36.5 Red Cell Distribution Width 13.6 % Normal 11.5-14.5 Platelet Count, Automated 177 10 Normal 150-450 Neutrophils % 55.2 % Normal 36.0-66.0 Lymph % 29.2 % Normal 24.0-44.0 [place] % 11.3 % High 2.0-8.0 Eos % 3.1 % High 0.0-3.0 Baso % 0.8 % Normal 0.0-1.0 Immature Granulocyte % 0.4 % Normal 0-3.0 Nucleated Red Blood Cell % 0.0 % Normal 0-0 Neutrophils # 2.9 10 Normal 1.5-8.5 Lymph # 1.5 10 Normal 1.5-5.0 [place] # 0.6 10 Normal 0.0-0.8 Eos # 0.2 10 Normal 0.0-0.5 Baso # 0.0 10 Normal 0.0-0.2 Comprehensive Metabolic Profil 01/27/[address] [address] [phone] Glucose, Fasting 127 mg/dL High 70-100 Blood Urea Nitrogen 30 mg/dL High 7-18 Creatinine For GFR 1.18 mg/dL Normal 0.55-1.30 Glomerular Filtration Rate 47.2 Normal >39 8 Sodium Level 144 mEq/L Normal 136-145 Potassium Serum 3.8 mEq/L Normal 3.5-5.1 Chloride Level 111 mEq/L High 98-107 Carbon Dioxide Level 29 mEq/L Normal 21-32 Anion Gap 4 mEq/L Low 8-16 Calcium Level 9.1 mg/dL Normal 8.8-10.2 Ast/Sgot 19 U/L Normal 7-37 Alt/SGPT 34 U/L Normal 12-78 Alkaline Phosphatase 92 U/L Normal 45-117 Bilirubin,Total 1.3 mg/dL High 0.2-1.0 Total Protein 6.7 GM/DL Normal 6.4-8.2 Albumin 3.5 GM/DL Normal 3.2-5.2 Albumin/Globulin Ratio 1.1 Low 1.2-2.2 Laboratory test finding 01/27/[address] [address] [phone] LDH Lactate Dehydrogenase 162 U/L Normal 84-246 1 Lab Result Notes: Pre-Diabetes 5.7 - 6.4 % Diabetes = or > 6.5% 2 100-125 mg/dL PRE-DIABET ES/FASTING >126 mg/dL DIABETES/FASTING 3 NOTE: RESULT VERIFIED. 4 CHRONIC KIDNEY DISEASE STAGI NG PER NKF STAGE I & II GFR >= 60 NORMAL TO MILDLY DECREASED STAGE III GFR 30-59 MODERATELY DECREASED STAGE IV GFR 15-29 SEVERELY DECREASED STAGE V GFR <15 VERY LITTLE GFR LEFT ESRD GFR <15 ON CONTACT LENS EDGE BUFFER 5 Lab Result Notes: Pre-Diabetes 5.7 - 6.4 % Diabetes = or > 6.5% 6 100-125 mg/dL PRE-DIABET ES/FASTING >126 mg/dL DIABETES/FASTING 7 CHRONIC KIDNEY DISEASE STAGI NG PER NKF STAGE I & II GFR >= 60 NORMAL TO MILDLY DECREASED STAGE III GFR 30-59 MODERATELY DECREASED STAGE IV GFR 15-29 SEVERELY DECREASED STAGE V GFR <15 VERY LITTLE GFR LEFT ESRD GFR <15 ON CONTACT LENS EDGE BUFFER 8 Units are mL/min/1.73 m2 Chronic Kidney Disease Staging per NKF: Stage I & II GFR >=60 Normal to Mildly Decreased Stage III GFR 30-59 Moderately Decreased Stage IV GFR 15-29 Severely Decreased Stage V GFR <15 Very Little GFR Left ESRD GFR <15 on CONTACT LENS EDGE BUFFER Procedures Date Code Description Status 02/01/2021 24645 Office/Outpatient Established Mo d MDM 30-39 Min Completed 12/08/2020 [id number] Bone Mineral Density Test [facility] 12/08/2020 [id number] Mammogram Completed 03/27/2019 [id number] Diabetic Retinal Eye Exam [facility] 04/16/2017 [id number] Bone Mineral Density Test [facility] 04/16/2017 [id number] Mammogram Completed 02/21/2017 [id number] Diabetic Retinal Eye Exam [facility] 07/06/2015 [id number] Diabetic Retinal Eye Exam [facility] 08/26/2014 [id number] Colonoscopy Completed 04/30/2013 [id number] Colonoscopy Completed 04/28/2013 [id number] Diabetic Retinal Eye Exam [facility] 03/11/2013 [id number] Mammogram Completed 03/08/2013 [id number] Mammogram Completed 06/14/2011 [id number] Diabetic Retinal Eye Exam [facility] 08/31/2010 [id number] Colonoscopy Completed 07/10/2010 [id number] Mammogram Completed 07/15/2003 [id number] Bone Mineral Density Test [facility] Medical Devices Description No Information Available Encounters Type Date Location Provider Dx Diagnosis Office Visit 02/01/2021 10:40a [facility] 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 N18.32 Chronic kidney disease, stag e 3b C83.30 Diffuse large B-cell lymphom a, unspecified site E78.00 Pure hypercholesterolemia, u nspecified M85.9 Disorder of bone density and structure, unspecified Z13.89 Encounter for screening for other disorder Assessments Date Code Description Provider 06/13/2021 R59.0 Cervical lymphadenopathy Zack Loza, DO 06/13/2021 C83.30 Diffuse large B-cell lymphoma, u nspecified site Gaetano Loza, DO 06/13/2021 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 Gaetano Loza, DO 06/13/2021 N18.32 Chronic kidney disease, stage 3b Gaetano Loza, DO 02/01/2021 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 Rusty Loza MD 02/01/2021 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 Rusty Loza MD 02/01/2021 I12.9 Hypertensive chronic kidney dise ase with stage 1 through sta Rusty Loza MD 02/01/2021 N18.32 Chronic kidney disease, stage 3b Rusty Loza MD 02/01/2021 C83.30 Diffuse large B-cell lymphoma, u nspecified site Rusty Loza MD 02/01/2021 E78.00 Pure hypercholesterolemia, unspe cified Rusty Loza MD 02/01/2021 M85.9 Disorder of bone density and str ucture, unspecified Rusty Loza MD 02/01/2021 Z13.89 Encounter for screening for othe r disorder Rusty Loza MD Plan of Treatment Future Appointment(s):* 08/08/2021 7:40 am - Lab Schedule at [facility] * 08/08/2021 10:20 am - Rusty Loza MD at [facility] 02/01/2021 - Rusty Loza MD* E11.21 Type 2 diabetes mellitus with diabetic nephropathy* Comments:* ABC's meet goal.Diabetic foot and eye exams up to date. TLC discussed. Glycemic index discussed. 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
--- OUTSIDE RECORDS SUMMARY | 2021-08-21 12:38 | CCD | Continuity of Care Document ---
Author Author Penny CORONA MD Organization Unknown Address [address] [facility], [address] [place] [address] Phone [phone] Care Team Providers Care Cambering Machine Operator Name Role Phone AUTM Unavailable Alfonzo Walters M.D. AUTM [phone] AUTM Unavailable Davon Riggs M.D. AUTM Unavailable Problems Active Problems Provider Date Bilateral tinnitus Aid Isabel MD Onset: 11/06/2018 Dizziness and giddiness [...] lb BMI (Body Mass Index) 24.4 kg/m2 Tensed Body Weight 115 lb Weight 62.597 kg BSA (Body Surface Area) 1.65 m2 11/06/2018 10:14am Height 63 inches 5'3" Weight 139.00 lb BMI (Body Mass Index) 24.6 kg/m2 Tensed Body Weight 115 lb Weight 63.050 kg BSA (Body Surface Area) 1.66 m2 Results Description No Information Available Procedures Description No Information Available Medical Devices Description No Information Available Encounters Description No Information Available Assessments Date Code Description Provider 08/03/2021 R22.1 Localized swelling, mass and lum p, neck oTr Corona MD Plan of Treatment 08/03/2021 - Tor Corona MD* R22.1 Localized swelling, mass and lump, neck* Comments:* Penny has a scheduled PET scan on 08/07. We will review this once completed determine if FNA or excisional biopsy is more appropriate for her. We will follow up with her once we review the results and discuss with oncology to achieve the best plan. She is happy to follow this plan. I am happy to see her at any time. Functional Status Description No Information Available Mental Status Description No Information Available Referrals Refer to Reason for Referral Status Appt Seymour Jett MD EXCISIONAL BIOPSY RT NECK LYMPH NODE Scheduled 08/02/2021 [address] [facility] [address] [place] [address] [phone] Charlie Gallo D.O. EXCISIONAL BIOPSY RT NECK LYMPH NODE ASA P Created [address] [facility] [address] [place], [place] [address] [phone]
--- OUTSIDE RECORDS SUMMARY | 2021-08-21 12:38 | CCD ---
Continuity of Care Document (CCD) Created on: 08/13/2021 Penny Almonte External Reference #: [id number] : [id number] Sex: Female Author Author Penny Dubon MD Organization Unknown Address [address] [place] [address] Phone [phone] Care Team Providers Care Enthone Solder Stripper Name Role Phone Rusty Dubon JR, MD AUTM Unavailable Sonia Bullard DR AUTM [phone] James Matt ALIYAH AUTM [phone] [facility] Hematology/Oncology AUTM [phone] Problems Active Problems Provider Date Benign essential [...] intramuscular, repeat in 2 to 6 months 2tatyana Dubon MD 11/25/2017 Prevnar 13 Suspension 0.5 cubic centimeters x 1 1tatyana Dubon MD 10/13/2015 Onglyza 5mg Tablets Take [...] Date Covid-19 vaccine, Unspecified Inj ection Unknown 07/21/2021 Administration Of Flu Vaccine Inj ection Gaetano Dubon DO 06/13/20 21 Covid-19 vaccine, Unspecified Inj ection Unknown 11/24/2020 Covid-19 vaccine, Unspecified Inj ection Unknown 10/27/2020 Administration Of Flu Vaccine Inj ectnolan Dubon MD 07/06/2016 Administration Of Flu Vaccine Inj ection Rusty Dubon MD 07/07/2015 Administration Of Flu Vaccine Inj ection Elsie oGmez, ANP 4 Administration Of Flu Vaccine Inj ection Rusty Dubon MD 06/11/2013 Administration Of Flu Vaccine Inj ection Rusty Dubon MD 07/02/2011 Administration Of Flu Vaccine Inj gene Dubon MD 06/12/2010 Administration Of Flu Vaccine Inj gene Dubon MD 07/11/2009 Administration Of Flu Vaccine Inj gene Dubon MD 07/04/2005 Administration Of Flu Vaccine Inj ection Rusty Dubon MD 09/05/2004 Administration Of Flu Vaccine Inj francision PAOLO Sen 07/07/2003 Immunizations CPT Code Status Date Vaccine Lot # [id number] Given 06/13/2021 Influenza Vaccin e Quadrivalent Preser/Antibiotic Free Im Use [id number] U-Flu Given 06/15/2020 Influenza,Unspecified U-Flu Given 07/01/2019 Influenza,Unspecified U-Flu Given 06/26/2018 Influenza,Unspecified Q2037 Given 07/06/2016 Fluvirin Virus Vaccine 24946 01 Q2037 Given 07/07/2015 Fluvirin Virus Vaccine 97251 01 Q2037 Given 07/05/2014 Fluvirin Virus Vaccine 37542 21 Q2037 Given 06/11/2013 Fluvirin Virus Vaccine Q2037 Given 07/02/2011 Fluvirin Virus Vaccine Q2037 Given 07/02/2011 Fluvirin Virus Vaccine 76722 Given 04/30/2011 Pneumovax 23 51412 Given 06/12/2010 Influenza Virus Vaccine 41856 Given 07/11/2009 Influenza Virus Vaccine 41125 Given 06/14/2008 Influenza Virus Vaccine 01030 Given 07/01/2007 Influenza Virus Vaccine 32065 Given 08/14/2006 Influenza Virus Vaccine 74385 Given 08/14/2006 PPD 99133 Given 07/04/2005 Influenza Virus Vaccine 78256 Given 09/05/2004 Influenza Virus Vaccine 38353 Given 07/07/2003 Influenza Virus Vaccine 45182 Refused 11/25/2018 Zoster Vaccine 04323 Refused 11/25/2018 Shingrix Zoster Vaccine (HZV), Recombinant, Subunit, Adjuvanted Vital Signs Date Vital Result Comment 08/08/2021 10:09am BP Systolic 122 mmHg BP Diastolic 76 mmHg Heart Rate 88 /min Height 63 inches 5'3" Weight 138.00 lb BMI (Body Mass Index) 24.4 kg/m2 06/13/2021 8:37am BP Systolic 124 mmHg BP Diastolic 82 mmHg Heart Rate 79 /min Height 63 inches 5'3" Weight 135.00 lb O2 % BldC Oximetry 99 % BMI (Body Mass Index) 23.9 kg/m2 Results Test Acquired Date Facility Test Result H/L Range Note CBC With Differential 08/12/[address] [address] [phone] White Blood Count 5.2 10 Normal 4.0-10.0 [...] 36.0-66.0 Lymph % 30.6 % Normal 24.0-44.0 [place] % 10.7 % High 2.0-8.0 Eos % 3.1 % High 0.0-3.0 Baso % 0.8 % Normal 0.0-1.0 Immature Granulocyte % 0.2 % Normal 0-3.0 Nucleated Red Blood Cell % 0.0 % Normal 0-0 Neutrophils # 2.9 10 Normal 1.5-8.5 Lymph # 1.6 10 Normal 1.5-5.0 [place] # 0.6 10 Normal 0.0-0.8 Eos # 0.2 10 Normal 0.0-0.5 Baso # 0.0 10 Normal 0.0-0.2 Comprehensive Metabolic Profil 08/12/[address] [id number] [phone] Glucose, Fasting 136 mg/dL High 70-100 Blood Urea Nitrogen 27 mg/dL High 7-18 Creatinine For GFR 1.29 mg/dL Normal 0.55-1.30 Glomerular Filtration Rate 42.6 Normal >39 1 Sodium Level 142 mEq/L Normal 136-145 Potassium Serum 4.2 mEq/L Normal 3.5-5.1 2 Chloride Level 111 mEq/L High 98-107 Carbon [...] 1.1 Low 1.2-2.2 Laboratory test finding 08/12/2021 [facility] [address] [place], [place] [id number] [phone] LDH Lactate Dehydrogenase 176 U/L Normal 84-246 Complete Blood Count 08/08/2021 [facility] Maintenance Tech: [place] [address] [phone] WBC 5.6 x10*3/UL 4.1 - 10.9 RBC [...] 3.8 x10*3/UL 2.0 - 7.8 A1c 08/08/2021 [facility] Maintenance Tech: [place] [address] [phone] Hba1c 7.2 % High <5.7 3 Est Avg Glucose 160 mg/dL High 60 - 110 Comprehensive Chem Profile 08/08/2021 [facility] Maintenance Tech: [place] [address] [phone] Glucose 144 mg/dL High 74 - 99 4 BUN 28 mg/dL High 7 - 18 [...] Low >60 GFR 53 mL/min Low >60 5 Lipid Profile 08/08/2021 [facility] Maintenance Tech: Dr Rusty Dubon [place], [place] [id number] [phone] Cholesterol 194 mg/dL 131 - 200 Triglycerides 127 mg/dL 30 - 150 HDL Cholesterol 43 mg/dL 35 - 60 LDL (Calculated) 126 CALC 50 - 159 Comprehensive Metabolic Profil 07/12/2021 [facility] [address] [place], [place] [address] [phone] Glucose, Fasting 117 mg/dL High 70-100 Blood Urea Nitrogen 21 mg/dL High 7-18 Creatinine For GFR 1.21 mg/dL Normal 0.55-1.30 Glomerular Filtration Rate 45.8 Normal >39 6 Sodium Level 146 mEq/L High 136-145 Potassium [...] 1.1 Low 1.2-2.2 Laboratory test finding 07/12/[address] 5696122 [phone] LDH Lactate Dehydrogenase 166 U/L Normal 84-246 CBC With Differential 07/12/[address] [address] [phone] White Blood Count 6.4 10 Normal 4.0-10.0 [...] 36.0-66.0 Lymph % 28.1 % Normal 24.0-44.0 [place] % 10.7 % High 2.0-8.0 Eos % 3.0 % Normal 0.0-3.0 Baso % 0.5 % Normal 0.0-1.0 Immature Granulocyte % 0.2 % Normal 0-3.0 Nucleated Red Blood Cell % 0.0 % Normal 0-0 Neutrophils # 3.7 10 Normal 1.5-8.5 Lymph # 1.8 10 Normal 1.5-5.0 [place] # 0.7 10 Normal 0.0-0.8 Eos # 0.2 10 Normal 0.0-0.5 Baso # 0.0 10 Normal 0.0-0.2 Laboratory test finding 06/13/[address] [address] [phone] LDH Lactate Dehydrogenase 188 U/L Normal 84-246 Complete Blood Count 06/13/2021 [facility] Maintenance Tech: Dr Rusty Dubon [place], [place] [address] [phone] WBC 5.9 x10*3/UL 4.1 - 10.9 RBC [...] 4.3 x10*3/UL 2.0 - 7.8 A1c 06/13/2021 [facility] , Maintenance Tech: [place] [address] [phone] Hba1c 7.0 % High <5.7 7 Est Avg Glucose 154 mg/dL High 60 - 110 Comprehensive Chem Profile 06/13/2021 [facility], Maintenance Tech: [place] [address] [phone] Glucose 161 mg/dL High 74 - 99 8 BUN 24 mg/dL High 7 - 18 Creatinine 1.4 mg/dL High 0.6 - 1.3 Sodium 145 mEq/L 136 - 145 Potassium 3.9 mEq/L 3.5 - 5.1 Chloride 108 mEq/L High 98 - 107 Carbon Dioxide 27 mEq/L 21 - 32 Calcium 9.1 mg/dL 8.5 - 10.1 Alk. Phosphatase 107 mg/dL 46 - 116 Total Bilirubin 1.5 mg/dL High 0.2 - 1.0 9 Ast (Sgot) 27 U/L 15 - 37 Alt (SGPT) 44 U/L 12 - 78 Albumin 4.0 g/dL 3.4 - 5.0 Total Protein 7.1 g/dL 6.4 - 8.2 A/G Ratio 1.29 CALC 1.00 - 1.90 GFR 36 mL/min Low >60 GFR 44 mL/min Low >60 10 1 Units are mL/min/1.73 m2 Chronic Kidney Disease Staging per NKF: Stage I & II GFR >=60 Normal to Mildly Decreased Stage III GFR 30-59 Moderately Decreased Stage IV GFR 15-29 Severely Decreased Stage V GFR <15 Very Little GFR Left ESRD GFR <15 on CHILD ABUSE WORKER 2 This specimen has an elevate d potassium level but there is NO visible hemolysis noted. 3 Lab Result Notes: Pre-Diabetes 5.7 - 6.4 % Diabetes = or > 6.5% 4 100-125 mg/dL PRE-DIABET ES/FASTING >126 mg/dL DIABETES/FASTING 5 CHRONIC KIDNEY DISEASE STAGI NG PER NKF STAGE I & II GFR >= 60 NORMAL TO MILDLY DECREASED STAGE III GFR 30-59 MODERATELY DECREASED STAGE IV GFR 15-29 SEVERELY DECREASED STAGE V GFR <15 VERY LITTLE GFR LEFT ESRD GFR <15 ON CHILD ABUSE WORKER 6 Units are mL/min/1.73 m2 Chronic Kidney Disease Staging per NKF: Stage I & II GFR >=60 Normal to Mildly Decreased Stage III GFR 30-59 Moderately Decreased Stage IV GFR 15-29 Severely Decreased Stage V GFR <15 Very Little GFR Left ESRD GFR <15 on CHILD ABUSE WORKER 7 Lab Result Notes: Pre-Diabetes 5.7 - 6.4 % Diabetes = or > 6.5% 8 100-125 mg/dL PRE-DIABET ES/FASTING >126 mg/dL DIABETES/FASTING 9 NOTE: RESULT VERIFIED. 10 CHRONIC KIDNEY DISEASE STAGI NG PER NKF STAGE I & II GFR >= 60 NORMAL TO MILDLY DECREASED STAGE III GFR 30-59 MODERATELY DECREASED STAGE IV GFR 15-29 SEVERELY DECREASED STAGE V GFR <15 VERY LITTLE GFR LEFT ESRD GFR <15 ON CHILD ABUSE WORKER Procedures Date Code Description Status 06/13/2021 96046 Office/Outpatient Established Mo d MDM 30-39 Min Completed 12/08/2020 [id number] Bone Mineral Density Test Comple [facility] 12/08/2020 [id number] Mammogram Completed 03/27/2019 [id number] Diabetic Retinal Eye Exam Comple [facility] 04/16/2017 [id number] Bone Mineral Density Test Comple [facility] 04/16/2017 [id number] Mammogram Completed 02/21/2017 [id number] Diabetic Retinal Eye Exam Comple [facility] 07/06/2015 [id number] Diabetic Retinal Eye Exam Comple [facility] 08/26/2014 [id number] Colonoscopy Completed 04/30/2013 [id number] Colonoscopy Completed 04/28/2013 [id number] Diabetic Retinal Eye Exam Comple [facility] 03/11/2013 [id number] Mammogram Completed 03/08/2013 [id number] Mammogram Completed 06/14/2011 [id number] Diabetic Retinal Eye Exam Comple [facility] 08/31/2010 [id number] Colonoscopy Completed 07/10/2010 [id number] Mammogram Completed 07/15/2003 [id number] Bone Mineral Density Test Comple [facility] Medical Devices Description No Information Available Encounters Type Date Location Provider Dx Diagnosis Office Visit 06/13/2021 8:40a [facility] 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 * 02/14/2022 2:00 pm - Rusty Dubon MD at [facility] * 02/14/2022 1:40 pm - Nurse #2 at [facility] 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
--- OUTSIDE RECORDS SUMMARY | 2021-08-21 12:38 | CCD | Continuity of Care Document ---
Author Organization Unknown Address Unknown Phone Unavailable Care Team Providers Care Account Planner Name Role Phone Rusty Dubon JR, MD AUTM Unavailable Sonia Bullard DR AUTM [phone] James Matt OD AUTM [phone] [facility] Hematology/Oncology AUTM [phone] Problems Active Problems Provider Date Benign essential hypertension Rusty Dubon MD Onset: 0 04/30/2011 Type 2 diabetes mellitus Rusty Dubon MD Onset: 2010 Pure hypercholesterolemia Rusty Dubon MD Onset: 04/30 Pure hyperglyceridemia Rusty Dubon MD Onset: 04/30/20 11 Lymphadenopathy Rusty Dubon MD Onset: 04/30/2011 History of polyp of colon Rusty Dubon MD Onset: 04/30 Lymphadenopathy Rusyt Dubon MD Onset: 04/30/2011 Social History Type [...] Vaccine Inj ection Gaetano Dubon, DO 06/13/20 Covid-19 vaccine, Unspecified Inj ection Unknown 11/24/2020 Covid-19 vaccine, Unspecified Inj ection Unknown 10/27/2020 Administration Of Flu Vaccine Inj ection Rusty Dubon MD 07/06/2016 Administration Of Flu Vaccine Inj ection Rusyt Dubon MD 07/07/2015 Administration Of Flu Vaccine Inj ection Elsie Gomez, PAOLO 4 Administration Of Flu Vaccine Inj francision Rusty Dubon MD 06/11/2013 Administration Of Flu Vaccine Inj ection Rusty Dubon MD 07/02/2011 Administration Of Flu Vaccine Inj francision Rusty Dubon MD 06/12/2010 Administration Of Flu Vaccine Inj ection Rusty Dubon MD 07/11/2009 Administration Of Flu Vaccine Inj francision Rusty Dubon MD 07/04/2005 Administration Of Flu Vaccine Inj ectnolan Dubon MD 09/05/2004 Administration Of Flu Vaccine Inj ection Chela Escobar, PAOLO 07/07/2003 Immunizations CPT Code Status Date Vaccine Lot # [id number] Given 06/13/2021 Influenza Vaccin e Quadrivalent Preser/Antibiotic Free Im Use [id number] U-Flu Given 06/15/2020 Influenza,Unspecified U-Flu Given 07/01/2019 Influenza,Unspecified U-Flu Given 06/26/2018 Influenza,Unspecified Q2037 Given 07/06/2016 Fluvirin Virus Vaccine 92978 01 Q2037 Given 07/07/2015 Fluvirin Virus Vaccine 03333 01 Q2037 Given 07/05/2014 Fluvirin Virus Vaccine 96810 21 Q2037 Given 06/11/2013 Fluvirin Virus Vaccine Q2037 Given 07/02/2011 Fluvirin Virus Vaccine Q2037 Given 07/02/2011 Fluvirin Virus Vaccine 71995 Given 04/30/2011 Pneumovax 23 22738 Given 06/12/2010 Influenza Virus Vaccine 41915 Given 07/11/2009 Influenza Virus Vaccine 88619 Given 06/14/2008 Influenza Virus Vaccine 98352 Given 07/01/2007 Influenza Virus Vaccine 29277 Given 08/14/2006 Influenza Virus Vaccine 49797 Given 08/14/2006 PPD 64715 Given 07/04/2005 Influenza Virus Vaccine 47771 Given 09/05/2004 Influenza Virus Vaccine 00042 Given 07/07/2003 Influenza Virus Vaccine 04251 Refused 11/25/2018 Zoster Vaccine 37237 Refused 11/25/2018 Shingrix Zoster Vaccine (HZV), Recombinant, [...] H/L Range Note CBC With Differential 08/12/2021 [facility] [address] [place] [address] [phone] White Blood Count 5.2 10 Normal 4.0-10.0 [...] 36.0-66.0 Lymph % 30.6 % Normal 24.0-44.0 [place] % 10.7 % High 2.0-8.0 Eos % 3.1 % High 0.0-3.0 Baso % 0.8 % Normal 0.0-1.0 Immature Granulocyte % 0.2 % Normal 0-3.0 Nucleated Red Blood Cell % 0.0 % Normal 0-0 Neutrophils # 2.9 10 Normal 1.5-8.5 Lymph # 1.6 10 Normal 1.5-5.0 [place] # 0.6 10 Normal 0.0-0.8 Eos # 0.2 10 Normal 0.0-0.5 Baso # 0.0 10 Normal 0.0-0.2 Comprehensive Metabolic Profil 08/12/[address] [address] [phone] Glucose, Fasting 136 mg/dL High 70-100 Blood [...] 1.1 Low 1.2-2.2 Laboratory test finding 08/12/2021 [facility] [address] [place] [address] [phone] LDH Lactate Dehydrogenase 176 U/L Normal 84-246 Complete Blood Count 08/08/2021 [place] [employer] yuniel dill Clinical Documentation Improvement Specialist: [place] [address] [phone] WBC 5.6 x10*3/UL 4.1 - 10.9 RBC [...] 3.8 x10*3/UL 2.0 - 7.8 A1c 08/08/2021 [place] yuniel Boswell Clinical Documentation Improvement Specialist: Dr Rusty Dubon [place], [place] 9[address]17 [phone] Hba1c 7.2 % High <5.7 3 Est Avg Glucose 160 mg/dL High 60 - 110 Comprehensive Chem Profile 08/08/2021 [place] [facility] yuniel berrios Clinical Documentation Improvement Specialist: [place] [address] [phone] Glucose 144 mg/dL High 74 - 99 [...] mL/min Low >60 5 Lipid Profile 08/08/2021 [facility] Clinical Documentation Improvement Specialist: Dr Rusty Dubon [place], [place] [id number] [phone] Cholesterol 194 mg/dL 131 - 200 Triglycerides 127 mg/dL 30 - 150 HDL Cholesterol 43 mg/dL 35 - 60 LDL (Calculated) 126 CALC 50 - 159 Comprehensive Metabolic Profil 07/12/[address] 7433655 [phone] Glucose, Fasting 117 mg/dL High 70-100 Blood [...] 1.1 Low 1.2-2.2 Laboratory test finding 07/12/[address] [place], [place] [address] [phone] LDH Lactate Dehydrogenase 166 U/L Normal 84-246 CBC With Differential 07/12/[address] [address] [phone] White Blood Count 6.4 10 Normal 4.0-10.0 [...] 36.0-66.0 Lymph % 28.1 % Normal 24.0-44.0 [place] % 10.7 % High 2.0-8.0 Eos % 3.0 % Normal 0.0-3.0 Baso % 0.5 % Normal 0.0-1.0 Immature Granulocyte % 0.2 % Normal 0-3.0 Nucleated Red Blood Cell % 0.0 % Normal 0-0 Neutrophils # 3.7 10 Normal 1.5-8.5 Lymph # 1.8 10 Normal 1.5-5.0 [place] # 0.7 10 Normal 0.0-0.8 Eos # 0.2 10 Normal 0.0-0.5 Baso # 0.0 10 Normal 0.0-0.2 Laboratory test finding 06/13/[address] [address] [phone] LDH Lactate Dehydrogenase 188 U/L Normal 84-246 Complete Blood Count 06/13/2021 [place] [employer] yuniel dill Clinical Documentation Improvement Specialist: [place] [address] [phone] WBC 5.9 x10*3/UL 4.1 - 10.9 RBC [...] 4.3 x10*3/UL 2.0 - 7.8 A1c 06/13/2021 [facility] , Clinical Documentation Improvement Specialist: Dr Rusty Dubon [place], [place] [address] [phone] Hba1c 7.0 % High <5.7 7 Est Avg Glucose 154 mg/dL High 60 - 110 Comprehensive Chem Profile 06/13/2021 [place] [facility], Clinical Documentation Improvement Specialist: [place] [address] [phone] Glucose 161 mg/dL High 74 - 99 [...] Little GFR Left ESRD GFR <15 on FINANCIAL ADMINISTRATIVE ASSISTANT 2 This specimen has an elevate d [...] LITTLE GFR LEFT ESRD GFR <15 ON FINANCIAL ADMINISTRATIVE ASSISTANT 6 Units are mL/min/1.73 m2 Chronic Kidney Disease Staging per NKF: Stage I & II GFR >=60 Normal to Mildly Decreased Stage III GFR 30-59 Moderately Decreased Stage IV GFR 15-29 Severely Decreased Stage V GFR <15 Very Little GFR Left ESRD GFR <15 on FINANCIAL ADMINISTRATIVE ASSISTANT 7 Lab Result Notes: Pre-Diabetes 5.7 - [...] LITTLE GFR LEFT ESRD GFR <15 ON FINANCIAL ADMINISTRATIVE ASSISTANT Procedures Date Code Description Status 06/13/2021 83903 Office/Outpatient Established Mo d MDM 30-39 Min Completed 12/08/2020 [id number] Bone Mineral Density Test Comple [facility] 12/08/2020 [id number] Mammogram Completed 03/27/2019 [id number] Diabetic Retinal Eye Exam Comple [facility] 04/16/2017 [id number] Bone Mineral Density Test Comple [facility] 04/16/2017 [id number] Mammogram Completed 02/21/2017 [id number] Diabetic Retinal Eye Exam Comple [facility] 07/06/2015 [id number] Diabetic Retinal Eye Exam Comple [facility] 08/26/2014 [id number] Colonoscopy Completed 04/30/2013 [id number] Colonoscopy Completed 04/28/2013 [id number] Diabetic Retinal Eye Exam Comple [facility] 03/11/2013 [id number] Mammogram Completed 03/08/2013 [id number] Mammogram Completed 06/14/2011 [id number] Diabetic Retinal Eye Exam Comple [facility] 08/31/2010 [id number] Colonoscopy Completed 07/10/2010 [id number] Mammogram Completed 07/15/2003 [id number] Bone Mineral Density Test Comple [facility] Medical Devices Description No Information Available Encounters Type Date Location Provider Dx Diagnosis Office Visit 06/13/2021 8:40a [facility] Chr lakia Dubon, R59.0 Localized enlarged lymph nod es C83.30 [...] Dubon, 06/13/2021 Z23 Encounter for immunization Efrain Dubon, Plan of Treatment Future Appointment(s):* 02/14/2022 7:40 am - Lab Schedule at [facility] * 02/14/2022 2:00 pm - [facility] * 02/14/2022 1:40 pm - Nurse #2 at [facility] 08/08/2021 - Rusty Dubon [...] and structure, unspecified * All * Comments:* Shaggy discussed Functional Status Description No Information Available Mental Status Description No Information Available Referrals Refer to Dr Reason for Referral Status Appt Date David Cobso JR, MD CONSULT FOR RT CERVICAL LYMPHADENOPATHY C reated [facility] General Surgery [address] [address] [phone]
--- OUTSIDE RECORDS SUMMARY | 2021-08-21 12:38 | CCD | Continuity of Care Document ---
Author Author Penny Dubon MD Organization Unknown Address [address] [place] [address] Phone [phone] Care Team Providers Care Creamery Worker Name Role Phone Rusty Dubon JR, MD AUTM Unavailable Sonia Bullard DR AUTM [phone] James Matt ALIYAH AUTM [phone] [facility] Hematology/Oncology AUTM [phone] Problems Active Problems Provider Date Benign essential [...] 07/06/2016 Administration Of Flu Vaccine Inj ection Rsuty Dubon MD 07/07/2015 Administration Of Flu Vaccine Inj ection Elsie Gomez, ANP 4 Administration Of Flu Vaccine Inj ection Rsuty Dubon MD 06/11/2013 Administration Of Flu Vaccine [...] CPT Code Status Date Vaccine Lot # [id number] Given 06/13/2021 Influenza Vaccin e Quadrivalent Preser/Antibiotic Free Im Use 151021 U-Flu Given 06/15/2020 Influenza,Unspecified U-Flu Given 07/01/2019 Influenza,Unspecified U-Flu Given 06/26/2018 Influenza,Unspecified Q2037 Given 07/06/2016 Fluvirin Virus Vaccine 48543 01 Q2037 Given 07/07/2015 Fluvirin Virus Vaccine 47077 01 Q2037 Given 07/05/2014 Fluvirin Virus Vaccine 18891 21 Q2037 Given 06/11/2013 Fluvirin Virus Vaccine Q2037 Given 07/02/2011 Fluvirin Virus Vaccine Q2037 Given 07/02/2011 Fluvirin Virus Vaccine 50631 Given 04/30/2011 Pneumovax 23 02603 Given 06/12/2010 Influenza Virus Vaccine 24801 Given 07/11/2009 Influenza Virus Vaccine 20446 Given 06/14/2008 Influenza Virus Vaccine 73043 Given 07/01/2007 Influenza Virus Vaccine 88647 Given 08/14/2006 Influenza Virus Vaccine 29175 Given 08/14/2006 PPD 75538 Given 07/04/2005 Influenza Virus Vaccine 67427 Given 09/05/2004 Influenza Virus Vaccine 71272 Given 07/07/2003 Influenza Virus Vaccine 37858 Refused 11/25/2018 Zoster Vaccine 43725 Refused 11/25/2018 Shingrix Zoster Vaccine (HZV), Recombinant, [...] Result H/L Range Note Laboratory test finding 08/08/2021 [facility] Ornamental Machine Operator: ILDEFONSO Wilkins [id number] [phone] A1c <pending> Comprehensive Metabolic Profil 07/12/[address] [address] [phone] Glucose, Fasting 117 mg/dL High 70-100 Blood Urea Nitrogen 21 mg/dL High 7-18 Creatinine For GFR 1.21 mg/dL Normal 0.55-1.30 Glomerular Filtration Rate 45.8 Normal >39 1 Sodium Level 146 mEq/L High 136-145 Potassium [...] 1.1 Low 1.2-2.2 Laboratory test finding 07/12/[address] [address] [phone] LDH Lactate Dehydrogenase 166 U/L Normal 84-246 CBC With Differential 07/12/[address] [address] [phone] White Blood Count 6.4 10 Normal 4.0-10.0 [...] 36.0-66.0 Lymph % 28.1 % Normal 24.0-44.0 [place] % 10.7 % High 2.0-8.0 Eos % 3.0 % Normal 0.0-3.0 Baso % 0.5 % Normal 0.0-1.0 Immature Granulocyte % 0.2 % Normal 0-3.0 Nucleated Red Blood Cell % 0.0 % Normal 0-0 Neutrophils # 3.7 10 Normal 1.5-8.5 Lymph # 1.8 10 Normal 1.5-5.0 [place] # 0.7 10 Normal 0.0-0.8 Eos # 0.2 10 Normal 0.0-0.5 Baso # 0.0 10 Normal 0.0-0.2 Laboratory test finding 06/13/2021 [facility] [address] [place] [address] [phone] LDH Lactate Dehydrogenase 188 U/L Normal 84-246 Complete Blood Count 06/13/2021 [facility] Ornamental Machine Operator: [place] [address] [phone] WBC 5.9 x10*3/UL 4.1 - 10.9 RBC [...] 4.3 x10*3/UL 2.0 - 7.8 A1c 06/13/2021 [facility] Ornamental Machine Operator: [place] [address] [phone] Hba1c 7.0 % High <5.7 2 Est Avg Glucose 154 mg/dL High 60 - 110 Comprehensive Chem Profile 06/13/2021 [facility] Ornamental Machine Operator: [place] [address] [phone] Glucose 161 mg/dL High 74 - 99 3 BUN 24 mg/dL High 7 - 18 Creatinine 1.4 mg/dL High 0.6 - 1.3 Sodium 145 mEq/L 136 - 145 Potassium 3.9 mEq/L 3.5 - 5.1 Chloride 108 mEq/L High 98 - 107 Carbon Dioxide 27 mEq/L 21 - 32 Calcium 9.1 mg/dL 8.5 - 10.1 Alk. Phosphatase 107 mg/dL 46 - 116 Total Bilirubin 1.5 mg/dL High 0.2 - 1.0 4 Ast (Sgot) 27 U/L 15 - 37 Alt (SGPT) 44 U/L 12 - 78 Albumin 4.0 g/dL 3.4 - 5.0 Total Protein 7.1 g/dL 6.4 - 8.2 A/G Ratio 1.29 CALC 1.00 - 1.90 GFR 36 mL/min Low >60 GFR 44 mL/min Low >60 5 1 Units are mL/min/1.73 m2 Chronic Kidney Disease Staging per NKF: Stage I & II GFR >=60 Normal to Mildly Decreased Stage III GFR 30-59 Moderately Decreased Stage IV GFR 15-29 Severely Decreased Stage V GFR <15 Very Little GFR Left ESRD GFR <15 on UNEMPLOYMENT BENEFITS CLAIMS TAKER 2 Lab Result Notes: Pre-Diabetes 5.7 - 6.4 % Diabetes = or > 6.5% 3 100-125 mg/dL PRE-DIABET ES/FASTING >126 mg/dL DIABETES/FASTING 4 NOTE: RESULT VERIFIED. 5 CHRONIC KIDNEY DISEASE STAGI NG PER NKF STAGE I & II GFR >= 60 NORMAL TO MILDLY DECREASED STAGE III GFR 30-59 MODERATELY DECREASED STAGE IV GFR 15-29 SEVERELY DECREASED STAGE V GFR <15 VERY LITTLE GFR LEFT ESRD GFR <15 ON UNEMPLOYMENT BENEFITS CLAIMS TAKER Procedures Date Code Description Status 06/13/2021 49290 Office/Outpatient Established Mo d MDM 30-39 Min Completed 12/08/2020 [id number] Bone Mineral Density Test Comple [facility] 12/08/2020 [id number] Mammogram Completed 03/27/2019 488403932 Diabetic Retinal Eye Exam Comple [facility] 04/16/2017 [id number] Bone Mineral Density Test Comple [facility] 04/16/2017 [id number] Mammogram Completed 02/21/2017 [id number] Diabetic Retinal Eye Exam Comple [facility] 07/06/2015 [id number] Diabetic Retinal Eye Exam Comple [facility] 08/26/2014 [id number] Colonoscopy Completed 04/30/2013 [id number] Colonoscopy Completed 04/28/2013 [id number] Diabetic Retinal Eye Exam Comple [facility] 03/11/2013 [id number] Mammogram Completed 03/08/2013 [id number] Mammogram Completed 06/14/2011 [id number] Diabetic Retinal Eye Exam Comple [facility] 08/31/2010 [id number] Colonoscopy Completed 07/10/2010 [id number] Mammogram Completed 07/15/2003 [id number] Bone Mineral Density Test Comple [facility] Medical Devices Description No Information Available Encounters Type Date Location Provider Dx Diagnosis Office Visit 06/13/2021 8:40a [facility] Chr istopher DO Ling R59.0 Localized enlarged lymph nod es C83.30 [...] mellitus with di abetic nephropathy Gaetano Dubon, DO 06/13/2021 N18.32 Chronic kidney disease, stage 3b Gaetano Dubon, DO 06/13/2021 Z23 Encounter for immunization Efrain Dubon, DO Plan of Treatment 08/08/2021 - Rusty Dubon MD* R59.0 Cervical [...] Disorder of bone density and structure, unspecified Functional Status Description No Information Available Mental Status Description No Information Available Referrals Refer to Dr Reason for Referral Status Appt Date David Cobos JR, MD CONSULT FOR RT CERVICAL LYMPHADENOPATHY C reated [facility] General Surgery [address] [address] [phone]
--- OUTSIDE RECORDS SUMMARY | 2021-08-21 12:38 | CCD | Continuity of Care Document ---
Author Author Penny Dubon MD Organization Unknown Address [address] [place] [address] Phone [phone] Care Team Providers Care Desk Sergeant Name Role Phone Rusty Dubon JR, MD AUTM Unavailable Sonia Bullard DR AUTM [phone] James Matt ALIYAH AUTM [phone] [facility] Hematology/Oncology AUTM [phone] Problems Active Problems Provider Date Benign essential [...] CPT Code Status Date Vaccine Lot # [id number] Given 06/13/2021 Influenza Vaccin e Quadrivalent Preser/Antibiotic Free Im Use 726515 U-Flu Given 06/15/2020 Influenza,Unspecified U-Flu Given 07/01/2019 Influenza,Unspecified U-Flu Given 06/26/2018 Influenza,Unspecified Q2037 Given 07/06/2016 Fluvirin Virus Vaccine 67995 01 Q2037 Given 07/07/2015 Fluvirin Virus Vaccine 30626 01 Q2037 Given 07/05/2014 Fluvirin Virus Vaccine 76062 21 Q2037 Given 06/11/2013 Fluvirin Virus Vaccine Q2037 Given 07/02/2011 Fluvirin Virus Vaccine Q2037 Given 07/02/2011 Fluvirin Virus Vaccine 35244 Given 04/30/2011 Pneumovax 23 16382 Given 06/12/2010 Influenza Virus Vaccine 46918 Given 07/11/2009 Influenza Virus Vaccine 29183 Given 06/14/2008 Influenza Virus Vaccine 95872 Given 07/01/2007 Influenza Virus Vaccine 84151 Given 08/14/2006 Influenza Virus Vaccine 75001 Given 08/14/2006 PPD 25902 Given 07/04/2005 Influenza Virus Vaccine 75152 Given 09/05/2004 Influenza Virus Vaccine 75143 Given 07/07/2003 Influenza Virus Vaccine 49202 Refused 11/25/2018 Zoster Vaccine 02159 Refused 11/25/2018 Shingrix Zoster Vaccine (HZV), Recombinant, [...] Note Laboratory test finding 08/08/2021 [facility] Hand Ii Tube Bender: ILDEFONSO Wilkins [id number] [phone] A1c <pending> Comprehensive Metabolic Profil 07/12/[address] [address] [phone] Glucose, Fasting 117 mg/dL High 70-100 Blood [...] 1.1 Low 1.2-2.2 Laboratory test finding 07/12/[address] [address] [phone] LDH Lactate Dehydrogenase 166 U/L Normal 84-246 CBC With Differential 07/12/[address] [address] [phone] White Blood Count 6.4 10 Normal 4.0-10.0 [...] 36.0-66.0 Lymph % 28.1 % Normal 24.0-44.0 [place] % 10.7 % High 2.0-8.0 Eos % 3.0 % Normal 0.0-3.0 Baso % 0.5 % Normal 0.0-1.0 Immature Granulocyte % 0.2 % Normal 0-3.0 Nucleated Red Blood Cell % 0.0 % Normal 0-0 Neutrophils # 3.7 10 Normal 1.5-8.5 Lymph # 1.8 10 Normal 1.5-5.0 [place] # 0.7 10 Normal 0.0-0.8 Eos # 0.2 10 Normal 0.0-0.5 Baso # 0.0 10 Normal 0.0-0.2 Laboratory test finding 06/13/2021 [facility] [address] [place] [address] [phone] LDH Lactate Dehydrogenase 188 U/L Normal 84-246 Complete Blood Count 06/13/2021 [facility] Hand Ii Tube Bender: [place] [address] [phone] WBC 5.9 x10*3/UL 4.1 - 10.9 RBC [...] 4.3 x10*3/UL 2.0 - 7.8 A1c 06/13/2021 [facility] Hand Ii Tube Bender: [place] [address] [phone] Hba1c 7.0 % High <5.7 2 Est Avg Glucose 154 mg/dL High 60 - 110 Comprehensive Chem Profile 06/13/2021 [facility]in Hand Ii Tube Bender: [place] [address] [phone] Glucose 161 mg/dL High 74 - 99 [...] Little GFR Left ESRD GFR <15 on ORGANIZATIONAL EFFECTIVENESS DIRECTOR 2 Lab Result Notes: Pre-Diabetes 5.7 - [...] LITTLE GFR LEFT ESRD GFR <15 ON ORGANIZATIONAL EFFECTIVENESS DIRECTOR Procedures Date Code Description Status 06/13/2021 20887 Office/Outpatient Established Mo d MDM 30-39 Min Completed 12/08/2020 [id number] Bone Mineral Density Test Comple [facility] 12/08/2020 [id number] Mammogram Completed 03/27/2019 [id number] Diabetic Retinal Eye Exam Comple [facility] 04/16/2017 [id number] Bone Mineral Density Test Comple [facility] 04/16/2017 [id number] Mammogram Completed 02/21/2017 723309438 Diabetic Retinal Eye Exam Comple [facility] 07/06/2015 926384314 Diabetic Retinal Eye Exam Comple [facility] 08/26/2014 [id number] Colonoscopy Completed 04/30/2013 [id number] Colonoscopy Completed 04/28/2013 189259750 Diabetic Retinal Eye Exam Comple [facility] 03/11/2013 [id number] Mammogram Completed 03/08/2013 [id number] Mammogram Completed 06/14/2011 [id number] Diabetic Retinal Eye Exam Comple [facility] 08/31/2010 [id number] Colonoscopy Completed 07/10/2010 [id number] Mammogram Completed 07/15/2003 185405419 Bone Mineral Density Test Comple [facility] Medical Devices Description No Information Available Encounters Type Date Location Provider Dx Diagnosis Office Visit 06/13/2021 8:40a [facility] 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
--- OUTSIDE RECORDS SUMMARY | 2021-08-21 12:38 | CCD | Continuity of Care Document ---
Author Author Lab Schedule, Penny Diego Organization Unknown Address [address] [place] [address] Phone Unavailable Care Team Providers Care Hostess Party Sales Representative Name Role Phone Rusty Dubon JR, MD AUTM Unavailable Sonia Bullard DR AUTM [phone] James Matt ALIYAH AUTM [phone] [facility] Hematology/Oncology AUTM [phone] Problems Active Problems Provider Date Benign essential [...] Medication SIG Qnty Indications Ordering Provider Date Administration Of Flu Vaccine Inj ection Gaetano Dubon DO 06/13/20 21 Covid-19 vaccine, Unspecified Inj ection Unknown 11/24/2020 Covid-19 vaccine, Unspecified Inj ection Unknown 10/27/2020 Administration Of Flu Vaccine Inj ectnolan Dubon MD 07/06/2016 Administration Of Flu Vaccine Inj ectnolan Dubon MD 07/07/2015 Administration Of Flu Vaccine Inj ection Elsie Gomez, PAOLO 4 Administration Of Flu Vaccine Inj gene Dubon MD 06/11/2013 Administration Of Flu Vaccine Inj ection Rusty Dubon MD 07/02/2011 Administration Of Flu Vaccine Inj francision Rusty Dbuon MD 06/12/2010 Administration Of Flu Vaccine Inj francision Rusty Dubon MD 07/11/2009 Administration Of Flu Vaccine Inj gene Dubon MD 07/04/2005 Administration Of Flu Vaccine Inj gene Dubon MD 09/05/2004 Administration Of Flu Vaccine Inj ection Chela Escobar, PAOLO 07/07/2003 Immunizations CPT Code Status Date Vaccine Lot # 47960 Given 06/13/2021 Influenza Vaccin e Quadrivalent Preser/Antibiotic Free Im Use 070043 U-Flu Given 06/15/2020 Influenza,Unspecified U-Flu Given 07/01/2019 Influenza,Unspecified U-Flu Given 06/26/2018 Influenza,Unspecified Q2037 Given 07/06/2016 Fluvirin Virus Vaccine 58672 01 Q2037 Given 07/07/2015 Fluvirin Virus Vaccine 89947 01 Q2037 Given 07/05/2014 Fluvirin Virus Vaccine 35999 21 Q2037 Given 06/11/2013 Fluvirin Virus Vaccine Q2037 Given 07/02/2011 Fluvirin Virus Vaccine Q2037 Given 07/02/2011 Fluvirin Virus Vaccine 53202 Given 04/30/2011 Pneumovax 23 67775 Given 06/12/2010 Influenza Virus Vaccine 01213 Given 07/11/2009 Influenza Virus Vaccine 17725 Given 06/14/2008 Influenza Virus Vaccine 32409 Given 07/01/2007 Influenza Virus Vaccine 29564 Given 08/14/2006 Influenza Virus Vaccine 75838 Given 08/14/2006 PPD 95808 Given 07/04/2005 Influenza Virus Vaccine 00245 Given 09/05/2004 Influenza Virus Vaccine 25319 Given 07/07/2003 Influenza Virus Vaccine 82109 Refused 11/25/2018 Zoster Vaccine 09737 Refused 11/25/2018 Shingrix Zoster Vaccine (HZV), Recombinant, [...] Date Facility Test Result H/L Range Note Comprehensive Metabolic Profil 07/12/2021 [place] 5393745 [phone] Glucose, Fasting 117 mg/dL High 70-100 Blood [...] 1.1 Low 1.2-2.2 Laboratory test finding 07/12/[address] 5203836 [phone] LDH Lactate Dehydrogenase 166 U/L Normal 84-246 CBC With Differential 07/12/[address] 6834118 [phone] White Blood Count 6.4 10 Normal 4.0-10.0 [...] 36.0-66.0 Lymph % 28.1 % Normal 24.0-44.0 [place] % 10.7 % High 2.0-8.0 Eos % 3.0 % Normal 0.0-3.0 Baso % 0.5 % Normal 0.0-1.0 Immature Granulocyte % 0.2 % Normal 0-3.0 Nucleated Red Blood Cell % 0.0 % Normal 0-0 Neutrophils # 3.7 10 Normal 1.5-8.5 Lymph # 1.8 10 Normal 1.5-5.0 [place] # 0.7 10 Normal 0.0-0.8 Eos # 0.2 10 Normal 0.0-0.5 Baso # 0.0 10 Normal 0.0-0.2 Laboratory test finding 06/13/2021 [facility] [address] 1518774 [phone] LDH Lactate Dehydrogenase 188 U/L Normal 84-246 Complete Blood Count 06/13/2021 [facility] Carpenter Repair: [place] [address] [phone] WBC 5.9 x10*3/UL 4.1 - 10.9 RBC [...] 4.3 x10*3/UL 2.0 - 7.8 A1c 06/13/2021 [facility] Carpenter Repair: [place] [address] [phone] Hba1c 7.0 % High <5.7 2 Est Avg Glucose 154 mg/dL High 60 - 110 Comprehensive Chem Profile 06/13/2021 [facility] Carpenter Repair: [place] [address] [phone] Glucose 161 mg/dL High 74 - 99 [...] GFR Left ESRD GFR <15 on SENIOR JAVA ENGINEER 2 Lab Result Notes: Pre-Diabetes 5.7 - [...] GFR LEFT ESRD GFR <15 ON SENIOR JAVA ENGINEER Procedures Date Code Description Status 06/13/2021 02864 Office/Outpatient Established Mo d MDM 30-39 Min Completed 12/08/2020 [id number] Bone Mineral Density Test Comple [facility] 12/08/2020 [id number] Mammogram Completed 03/27/2019 908374786 Diabetic Retinal Eye Exam Comple [facility] 04/16/2017 215842083 Bone Mineral Density Test Comple [facility] 04/16/2017 [id number] Mammogram Completed 02/21/2017 204696051 Diabetic Retinal Eye Exam Comple [facility] 07/06/2015 103277373 Diabetic Retinal Eye Exam Comple [facility] 08/26/2014 [id number] Colonoscopy Completed 04/30/2013 [id number] Colonoscopy Completed 04/28/2013 057614177 Diabetic Retinal Eye Exam Comple [facility] 03/11/2013 [id number] Mammogram Completed 03/08/2013 [id number] Mammogram Completed 06/14/2011 296022812 Diabetic Retinal Eye Exam Comple [facility] 08/31/2010 [id number] Colonoscopy Completed 07/10/2010 [id number] Mammogram Completed 07/15/2003 675569796 Bone Mineral Density Test Comple [facility] Medical Devices Description No Information Available Encounters Type Date Location Provider Dx Diagnosis Office Visit 06/13/2021 8:40a [facility] 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 General Surgery [address] [id number] [phone]
--- OUTSIDE RECORDS SUMMARY | 2021-08-21 12:38 | CCD | Continuity of Care Document ---
Author Author Penny LOZA DO Organization Unknown Address [address] [place] [address] Phone [phone] Care Team Providers Care Real Estate Subagent Name Role Phone Rusty Loza JR, MD AUTM Unavailable Sonia Bullard DR AUTM [phone] James Matt ALIYAH AUTM [phone] [facility] Hematology/Oncology AUTM [phone] Problems Active Problems Provider Date Benign essential [...] once a day or as directed dx:e11.9 200tatyana Loza MD 06/01 Shingrix 50mcg Suspension Rec [...] Administration Of Flu Vaccine Inj ection Gaetano Loza DO 06/13/20 21 Covid-19 vaccine, Unspecified Inj ection Unknown 11/24/2020 Covid-19 vaccine, Unspecified Inj ection Unknown 10/27/2020 Administration Of Flu Vaccine Inj ectnolan Loza MD 07/06/2016 Administration Of Flu Vaccine Inj ectnolan Loza MD 07/07/2015 Administration Of Flu Vaccine Inj ection PAOLO Mccann 4 Administration Of Flu Vaccine Inj ection Rusty Loza MD 06/11/2013 Administration Of Flu Vaccine Inj ection Rusty Loza MD 07/02/2011 Administration Of Flu Vaccine Inj ection Rusty Loza MD 06/12/2010 Administration Of Flu Vaccine Inj gene Loza MD 07/11/2009 Administration Of Flu Vaccine Inj ectnolan Loza MD 07/04/2005 Administration Of Flu Vaccine Inj gene Loza MD 09/05/2004 Administration Of Flu Vaccine Inj ection Chela Escobar, PAOLO 07/07/2003 Immunizations CPT Code Status Date Vaccine Lot # [id number] Given 06/13/2021 Influenza Vaccin e Quadrivalent Preser/Antibiotic Free Im Use [id number] U-Flu Given 06/15/2020 Influenza,Unspecified U-Flu Given 07/01/2019 Influenza,Unspecified U-Flu Given 06/26/2018 Influenza,Unspecified Q2037 Given 07/06/2016 Fluvirin Virus Vaccine 01415 01 Q2037 Given 07/07/2015 Fluvirin Virus Vaccine 75651 01 Q2037 Given 07/05/2014 Fluvirin Virus Vaccine 64165 21 Q2037 Given 06/11/2013 Fluvirin Virus Vaccine Q2037 Given 07/02/2011 Fluvirin Virus Vaccine Q2037 Given 07/02/2011 Fluvirin Virus Vaccine 71508 Given 04/30/2011 Pneumovax 23 69090 Given 06/12/2010 Influenza Virus Vaccine 90965 Given 07/11/2009 Influenza Virus Vaccine 05935 Given 06/14/2008 Influenza Virus Vaccine 23129 Given 07/01/2007 Influenza Virus Vaccine 63181 Given 08/14/2006 Influenza Virus Vaccine 79491 Given 08/14/2006 PPD 71524 Given 07/04/2005 Influenza Virus Vaccine 83714 Given 09/05/2004 Influenza Virus Vaccine 55240 Given 07/07/2003 Influenza Virus Vaccine 63946 Refused 11/25/2018 Zoster Vaccine 57932 Refused 11/25/2018 Shingrix Zoster Vaccine (HZV), Recombinant, [...] H/L Range Note Laboratory test finding 06/13/[address] [address] [phone] LDH Lactate Dehydrogenase 188 U/L Normal 84-246 Complete Blood Count 06/13/2021 [facility] Aerospace Stress Engineer: [place] [address] [phone] WBC 5.9 x10*3/UL 4.1 - 10.9 RBC [...] 4.3 x10*3/UL 2.0 - 7.8 A1c 06/13/2021 [facility] Aerospace Stress Engineer: [place] [address] [phone] Hba1c 7.0 % High <5.7 1 Est Avg Glucose 154 mg/dL High 60 - 110 Comprehensive Chem Profile 06/13/2021 [facility] Aerospace Stress Engineer: [place] [address] [phone] Glucose 161 mg/dL High 74 - 99 [...] Low >60 4 Complete Blood Count 02/01/2021 [facility] Aerospace Stress Engineer: [place] [address] [phone] WBC 4.8 x10*3/UL 4.1 - 10.9 RBC [...] 2.8 x10*3/UL 2.0 - 7.8 A1c 02/01/2021 [facility] Aerospace Stress Engineer: [place] [address] [phone] Hba1c 7.0 % High <5.7 5 Est Avg Glucose 154 mg/dL High 60 - 110 Comprehensive Chem Profile 02/01/2021 [facility] Aerospace Stress Engineer: [place] [address] [phone] Glucose 132 mg/dL High 74 - 99 [...] mL/min Low >60 7 Lipid Profile 02/01/2021 [facility] , Aerospace Stress Engineer: Dr Rusty Loza [place], [place] [id number] [phone] Cholesterol 171 mg/dL 131 - 200 Triglycerides 193 mg/dL High 30 - 150 HDL Cholesterol 40 mg/dL 35 - 60 LDL (Calculated) 92 CALC 50 - 159 Microalbumin/Creatinine Urine 02/01/2021 [facility], Aerospace Stress Engineer: [place] [address] [phone] Microalbumin Urine 10.4 mg/L 1.3 - 20.0 Urine Creatinine 163.5 mg/dL High 30.0 - 125.0 Microalb/Creat Ratio 6.4 ug/mg 0.0 - 30.0 CBC With Differential 01/27/2021 [facility] [address] [place] [address] [phone] White Blood Count 5.2 10 Normal 4.0-10.0 [...] 36.0-66.0 Lymph % 29.2 % Normal 24.0-44.0 [place] % 11.3 % High 2.0-8.0 Eos % 3.1 % High 0.0-3.0 Baso % 0.8 % Normal 0.0-1.0 Immature Granulocyte % 0.4 % Normal 0-3.0 Nucleated Red Blood Cell % 0.0 % Normal 0-0 Neutrophils # 2.9 10 Normal 1.5-8.5 Lymph # 1.5 10 Normal 1.5-5.0 [place] # 0.6 10 Normal 0.0-0.8 Eos # 0.2 10 Normal 0.0-0.5 Baso # 0.0 10 Normal 0.0-0.2 Comprehensive Metabolic Profil 01/27/[address] [address] [phone] Glucose, Fasting 127 mg/dL High 70-100 Blood [...] 1.1 Low 1.2-2.2 Laboratory test finding 01/27/[address] [address] [phone] LDH Lactate Dehydrogenase 162 U/L Normal 84-246 [...] LITTLE GFR LEFT ESRD GFR <15 ON EXECUTIVE CYBER LEADER 5 Lab Result Notes: Pre-Diabetes 5.7 - [...] LITTLE GFR LEFT ESRD GFR <15 ON EXECUTIVE CYBER LEADER 8 Units are mL/min/1.73 m2 Chronic Kidney Disease Staging per NKF: Stage I & II GFR >=60 Normal to Mildly Decreased Stage III GFR 30-59 Moderately Decreased Stage IV GFR 15-29 Severely Decreased Stage V GFR <15 Very Little GFR Left ESRD GFR <15 on EXECUTIVE CYBER LEADER Procedures Date Code Description Status 06/13/2021 28996 Office/Outpatient Established Mo d MDM 30-39 Min Completed 02/01/2021 49839 Office/Outpatient Established Mo d MDM 30-39 Min Completed 12/08/2020 [id number] Bone Mineral Density Test Comple [facility] 12/08/2020 [id number] Mammogram Completed 03/27/2019 [id number] Diabetic Retinal Eye Exam Comple [facility] 04/16/2017 [id number] Bone Mineral Density Test Comple [facility] 04/16/2017 [id number] Mammogram Completed 02/21/2017 [id number] Diabetic Retinal Eye Exam Comple [facility] 07/06/2015 [id number] Diabetic Retinal Eye Exam Comple [facility] 08/26/2014 [id number] Colonoscopy Completed 04/30/2013 [id number] Colonoscopy Completed 04/28/2013 [id number] Diabetic Retinal Eye Exam Comple [facility] 03/11/2013 [id number] Mammogram Completed 03/08/2013 [id number] Mammogram Completed 06/14/2011 [id number] Diabetic Retinal Eye Exam Comple [facility] 08/31/2010 [id number] Colonoscopy Completed 07/10/2010 [id number] Mammogram Completed 07/15/2003 [id number] Bone Mineral Density Test Comple [facility] Description No Information Available Encounters Type Date Location Provider Dx Diagnosis Office Visit 06/13/2021 8:40a [facility] 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 * 08/08/2021 10:20 am - Rusty Loza MD at [facility] 02/01/2021 - Rusty Loza MD* [...]
--- OUTSIDE RECORDS SUMMARY | 2021-08-21 12:39 | CCD | Continuity of Care Document ---
Author Author Penny LOZA DO Organization Unknown Address [address] [place] [address] Phone [phone] Care Team Providers Care Corporate Sales Trainer Name Role Phone Rusty Loza JR, MD AUTM Unavailable Sonia Bullard DR AUTM [phone] James Matt ALIYAH AUTM [phone] [facility] Hematology/Oncology AUTM [phone] Problems Active Problems Provider Date Benign essential [...] CPT Code Status Date Vaccine Lot # [id number] Given 06/13/2021 Influenza Vaccin e Quadrivalent Preser/Antibiotic Free Im Use [id number] U-Flu Given 06/15/2020 Influenza,Unspecified U-Flu Given 07/01/2019 Influenza,Unspecified U-Flu Given 06/26/2018 Influenza,Unspecified Q2037 Given 07/06/2016 Fluvirin Virus Vaccine 64111 01 Q2037 Given 07/07/2015 Fluvirin Virus Vaccine 38594 01 Q2037 Given 07/05/2014 Fluvirin Virus Vaccine 63971 21 Q2037 Given 06/11/2013 Fluvirin Virus Vaccine Q2037 Given 07/02/2011 Fluvirin Virus Vaccine Q2037 Given 07/02/2011 Fluvirin Virus Vaccine 61444 Given 04/30/2011 Pneumovax 23 36927 Given 06/12/2010 Influenza Virus Vaccine 33266 Given 07/11/2009 Influenza Virus Vaccine 62532 Given 06/14/2008 Influenza Virus Vaccine 16129 Given 07/01/2007 Influenza Virus Vaccine 94956 Given 08/14/2006 Influenza Virus Vaccine 77519 Given 08/14/2006 PPD 83971 Given 07/04/2005 Influenza Virus Vaccine 84515 Given 09/05/2004 Influenza Virus Vaccine 76032 Given 07/07/2003 Influenza Virus Vaccine 85949 Refused 11/25/2018 Zoster Vaccine 84793 Refused 11/25/2018 Shingrix Zoster Vaccine (HZV), Recombinant, [...] H/L Range Note Laboratory test finding 06/13/2021 [facility] [address] [place] [address] [phone] LDH Lactate Dehydrogenase 188 U/L Normal 84-246 Complete Blood Count 06/13/2021 [facility] Security System Installer: Dr Rusty Loza [place], [place] [id number] [phone] WBC 5.9 x10*3/UL 4.1 - 10.9 RBC [...] 4.3 x10*3/UL 2.0 - 7.8 A1c 06/13/2021 [facility] Security System Installer: [place] [address] [phone] Hba1c 7.0 % High <5.7 1 Est Avg Glucose 154 mg/dL High 60 - 110 Comprehensive Chem Profile 06/13/2021 [facility] Security System Installer: [place] [address] [phone] Glucose 161 mg/dL High 74 - 99 [...] Low >60 4 Complete Blood Count 02/01/2021 [facility] Security System Installer: [place] [address] [phone] WBC 4.8 x10*3/UL 4.1 - 10.9 RBC [...] 2.8 x10*3/UL 2.0 - 7.8 A1c 02/01/2021 [facility] Security System Installer: [place] [address] [phone] Hba1c 7.0 % High <5.7 5 Est Avg Glucose 154 mg/dL High 60 - 110 Comprehensive Chem Profile 02/01/2021 [facility] Security System Installer: Dr Rust[place] [address] [phone] Glucose 132 mg/dL High 74 - 99 [...] mL/min Low >60 7 Lipid Profile 02/01/2021 [facility] , Security System Installer: [place] [address] [phone] Cholesterol 171 mg/dL 131 - 200 Triglycerides 193 mg/dL High 30 - 150 HDL Cholesterol 40 mg/dL 35 - 60 LDL (Calculated) 92 CALC 50 - 159 Microalbumin/Creatinine Urine 02/01/2021 [facility] Security System Installer: Dr Rusty Loza [place], [place] [address] [phone] Microalbumin Urine 10.4 mg/L 1.3 - 20.0 Urine Creatinine 163.5 mg/dL High 30.0 - 125.0 Microalb/Creat Ratio 6.4 ug/mg 0.0 - 30.0 CBC With Differential 01/27/2021 [facility] [address] [place] [address] [phone] White Blood Count 5.2 10 Normal 4.0-10.0 [...] 36.0-66.0 Lymph % 29.2 % Normal 24.0-44.0 [place] % 11.3 % High 2.0-8.0 Eos % 3.1 % High 0.0-3.0 Baso % 0.8 % Normal 0.0-1.0 Immature Granulocyte % 0.4 % Normal 0-3.0 Nucleated Red Blood Cell % 0.0 % Normal 0-0 Neutrophils # 2.9 10 Normal 1.5-8.5 Lymph # 1.5 10 Normal 1.5-5.0 [place] # 0.6 10 Normal 0.0-0.8 Eos # 0.2 10 Normal 0.0-0.5 Baso # 0.0 10 Normal 0.0-0.2 Comprehensive Metabolic Profil 01/27/[address] [address] [phone] Glucose, Fasting 127 mg/dL High 70-100 Blood [...] 1.1 Low 1.2-2.2 Laboratory test finding 01/27/[address] [address] [phone] LDH Lactate Dehydrogenase 162 U/L Normal 84-246 [...] LITTLE GFR LEFT ESRD GFR <15 ON STRAIGHT KNIFE CUTTER MACHINE 5 Lab Result Notes: Pre-Diabetes 5.7 - [...] LITTLE GFR LEFT ESRD GFR <15 ON STRAIGHT KNIFE CUTTER MACHINE 8 Units are mL/min/1.73 m2 Chronic Kidney Disease Staging per NKF: Stage I & II GFR >=60 Normal to Mildly Decreased Stage III GFR 30-59 Moderately Decreased Stage IV GFR 15-29 Severely Decreased Stage V GFR <15 Very Little GFR Left ESRD GFR <15 on STRAIGHT KNIFE CUTTER MACHINE Procedures Date Code Description Status 02/01/2021 48115 Office/Outpatient Established Mo d MDM 30-39 Min Completed 12/08/2020 [id number] Bone Mineral Density Test Comple [facility] 12/08/2020 [id number] Mammogram Completed 03/27/2019 [id number] Diabetic Retinal Eye Exam Comple [facility] 04/16/2017 [id number] Bone Mineral Density Test Comple [facility] 04/16/2017 [id number] Mammogram Completed 02/21/2017 [id number] Diabetic Retinal Eye Exam Comple [facility] 07/06/2015 199283597 Diabetic Retinal Eye Exam Comple [facility] 08/26/2014 [id number] Colonoscopy Completed 04/30/2013 [id number] Colonoscopy Completed 04/28/2013 [id number] Diabetic Retinal Eye Exam Comple [facility] 03/11/2013 [id number] Mammogram Completed 03/08/2013 [id number] Mammogram Completed 06/14/2011 [id number] Diabetic Retinal Eye Exam Comple [facility] 08/31/2010 [id number] Colonoscopy Completed 07/10/2010 [id number] Mammogram Completed 07/15/2003 [id number] Bone Mineral Density Test [facility] Medical Devices Description No Information Available [...] 08/08/2021 7:40 am - Lab Schedule at [facility] * 08/08/2021 10:20 am - Rusty Loza MD at [facility] 02/01/2021 - Rusty Loza MD* [...]
--- OUTSIDE RECORDS SUMMARY | 2021-08-21 12:39 | CCD | Continuity of Care Document ---
Author Author Penny LOZA DO Organization Unknown Address [address] [place] [address] Phone [phone] Care Team Providers Care Insulation Cupola Operator Name Role Phone Rusty Loza JR, MD AUTM Unavailable Sonia Bullard DR AUTM [phone] James Matt ALIYAH AUTM [phone] [facility] Hematology/Oncology AUTM [phone] Problems Active Problems Provider Date Benign essential [...] CPT Code Status Date Vaccine Lot # [id number] Given 06/13/2021 Influenza Vaccin e Quadrivalent Preser/Antibiotic Free Im Use 054693 U-Flu Given 06/15/2020 Influenza,Unspecified U-Flu Given 07/01/2019 Influenza,Unspecified U-Flu Given 06/26/2018 Influenza,Unspecified Q2037 Given 07/06/2016 Fluvirin Virus Vaccine 59118 01 Q2037 Given 07/07/2015 Fluvirin Virus Vaccine 43648 01 Q2037 Given 07/05/2014 Fluvirin Virus Vaccine 06763 21 Q2037 Given 06/11/2013 Fluvirin Virus Vaccine Q2037 Given 07/02/2011 Fluvirin Virus Vaccine Q2037 Given 07/02/2011 Fluvirin Virus Vaccine 55654 Given 04/30/2011 Pneumovax 23 93957 Given 06/12/2010 Influenza Virus Vaccine 28355 Given 07/11/2009 Influenza Virus Vaccine 85662 Given 06/14/2008 Influenza Virus Vaccine 10870 Given 07/01/2007 Influenza Virus Vaccine 29102 Given 08/14/2006 Influenza Virus Vaccine 96968 Given 08/14/2006 PPD 77559 Given 07/04/2005 Influenza Virus Vaccine 32901 Given 09/05/2004 Influenza Virus Vaccine 68994 Given 07/07/2003 Influenza Virus Vaccine 07291 Refused 11/25/2018 Zoster Vaccine 66607 Refused 11/25/2018 Shingrix Zoster Vaccine (HZV), Recombinant, [...] H/L Range Note Laboratory test finding 06/13/2021 [facility] [address] [place] [address] [phone] LDH Lactate Dehydrogenase <pending> Laboratory test finding 06/13/2021 [facility] Legal Contracts Specialist: Dr Rusty [place]za [place], [place] [address] [phone] A1c <pending> Complete Blood Count 02/01/2021 [facility] Legal Contracts Specialist: Dr Rusty Loza [place], [place] [address] [phone] WBC 4.8 x10*3/UL 4.1 - 10.9 RBC [...] 2.8 x10*3/UL 2.0 - 7.8 A1c 02/01/2021 [facility] , Legal Contracts Specialist: Dr Rusty Loza [place], [place] [address] [phone] Hba1c 7.0 % High <5.7 1 Est Avg Glucose 154 mg/dL High 60 - 110 Comprehensive Chem Profile 02/01/2021 [facility], Legal Contracts Specialist: [place] [address] [phone] Glucose 132 mg/dL High 74 - 99 2 BUN 29 mg/dL High 7 - 18 [...] Low >60 GFR 41 mL/min Low >60 3 Lipid Profile 02/01/2021 [facility] , Legal Contracts Specialist: [place] [address] [phone] Cholesterol 171 mg/dL 131 - 200 Triglycerides 193 mg/dL High 30 - 150 HDL Cholesterol 40 mg/dL 35 - 60 LDL (Calculated) 92 CALC 50 - 159 Microalbumin/Creatinine Urine 02/01/2021 [facility], Legal Contracts Specialist: [place] [address] [phone] Microalbumin Urine 10.4 mg/L 1.3 - 20.0 Urine Creatinine 163.5 mg/dL High 30.0 - 125.0 Microalb/Creat Ratio 6.4 ug/mg 0.0 - 30.0 CBC With Differential 01/27/2021 [facility] [address] [place] [address] [phone] White Blood Count 5.2 10 Normal 4.0-10.0 [...] 36.0-66.0 Lymph % 29.2 % Normal 24.0-44.0 [place] % 11.3 % High 2.0-8.0 Eos % 3.1 % High 0.0-3.0 Baso % 0.8 % Normal 0.0-1.0 Immature Granulocyte % 0.4 % Normal 0-3.0 Nucleated Red Blood Cell % 0.0 % Normal 0-0 Neutrophils # 2.9 10 Normal 1.5-8.5 Lymph # 1.5 10 Normal 1.5-5.0 [place] # 0.6 10 Normal 0.0-0.8 Eos # 0.2 10 Normal 0.0-0.5 Baso # 0.0 10 Normal 0.0-0.2 Comprehensive Metabolic Profil 01/27/2021 [place] [place] [address] [phone] Glucose, Fasting 127 mg/dL High 70-100 Blood Urea Nitrogen 30 mg/dL High 7-18 Creatinine For GFR 1.18 mg/dL Normal 0.55-1.30 Glomerular Filtration Rate 47.2 Normal >39 4 Sodium Level 144 mEq/L Normal 136-145 Potassium [...] 1.1 Low 1.2-2.2 Laboratory test finding 01/27/2021 [facility] [address] [place] [address] [phone] LDH Lactate Dehydrogenase 162 U/L Normal 84-246 1 Lab Result Notes: Pre-Diabetes 5.7 - 6.4 % Diabetes = or > 6.5% 2 100-125 mg/dL PRE-DIABET ES/FASTING >126 mg/dL DIABETES/FASTING 3 CHRONIC KIDNEY DISEASE STAGI NG PER NKF STAGE I & II GFR >= 60 NORMAL TO MILDLY DECREASED STAGE III GFR 30-59 MODERATELY DECREASED STAGE IV GFR 15-29 SEVERELY DECREASED STAGE V GFR <15 VERY LITTLE GFR LEFT ESRD GFR <15 ON MACHINE ASSEMBLER 4 Units are mL/min/1.73 m2 Chronic Kidney Disease Staging per NKF: Stage I & II GFR >=60 Normal to Mildly Decreased Stage III GFR 30-59 Moderately Decreased Stage IV GFR 15-29 Severely Decreased Stage V GFR <15 Very Little GFR Left ESRD GFR <15 on MACHINE ASSEMBLER Procedures Date Code Description Status 02/01/2021 51375 Office/Outpatient Established Mo d MDM 30-39 Min Completed 12/08/2020 [id number] Bone Mineral Density Test Comple [facility] 12/08/2020 [id number] Mammogram Completed 03/27/2019 818574590 Diabetic Retinal Eye Exam Comple [facility] 04/16/2017 949290504 Bone Mineral Density Test Comple [facility] 04/16/2017 [id number] Mammogram Completed 02/21/2017 [id number] Diabetic Retinal Eye Exam Comple [facility] 07/06/2015 918402930 Diabetic Retinal Eye Exam Comple [facility] 08/26/2014 [id number] Colonoscopy Completed 04/30/2013 [id number] Colonoscopy Completed 04/28/2013 177362389 Diabetic Retinal Eye Exam Comple [facility] 03/11/2013 [id number] Mammogram Completed 03/08/2013 [id number] Mammogram Completed 06/14/2011 113058585 Diabetic Retinal Eye Exam Comple [facility] 08/31/2010 [id number] Colonoscopy Completed 07/10/2010 [id number] Mammogram Completed 07/15/2003 [id number] Bone Mineral Density Test Comple [facility] Medical Devices Description No Information Available Encounters Type Date Location Provider Dx Diagnosis Office Visit 02/01/2021 10:40a [facility] E11.21 Type 2 diabetes mellitus [...] Description Provider 06/13/2021 R59.0 Cervical lymphadenopathy Zack Loza DO 06/13/2021 C83.30 Diffuse large B-cell lymphoma, u nspecified site Gaetano Loza DO 06/13/2021 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 * 08/08/2021 10:20 am - Rusty Loza MD at [facility] 06/13/2021 - Gaetano Loza DO* R59.0 Cervical lymphadenopathy* Comments: * Exam is concerning for a nonpainful right cervical LAD without current infectious symptoms and with her history of DLBCL will perform expedited workup starting with labs including LDH, and referral for biopsy and to oncology. * C83.30 Diffuse large B-cell lymphoma, unspecified site * E11.21 Type 2 diabetes mellitus with diabetic nephropathy* Comments:* Historically well controlled, she is tolerating and compliant with her current medications, which were reviewed with her today. Repeat A1c today. * N18.32 Chronic kidney disease, stage 3b Functional Status Description No Information Available Mental Status Description No Information Available Referrals Description No Information Available
--- OUTSIDE RECORDS SUMMARY | 2021-08-21 12:39 | CCD ---
Author Author [facility] Organization [facility] Address Unknown Phone Unavailable Care Team Providers Care Linux Engineer Name Role Phone Maring, Reji PA Unavailable Unavailable Maring, Reji PA Unavailable Unavailable Maring, Reji PA Unavailable Unavailable Maring, Reji PA Unavailable Unavailable Maring, Reji PA Unavailable Unavailable Maring, Reji PA Unavailable Unavailable Maring, Reji PA Unavailable Unavailable Maring, Reji PA Unavailable Unavailable Maring, Reji PA Unavailable Unavailable Maring, Reji PA Unavailable Unavailable Maring, Reji PA Unavailable Unavailable Maring, Reji PA Unavailable Unavailable Maring, Reji PA Unavailable Unavailable Maring, Reji PA Unavailable Unavailable Maring, Reji PA Unavailable Unavailable Maring, Reji PA Unavailable Unavailable Lorene Dubon MD Unavailable Unavailable Lorene Dubon MD Unavailable Unavailable Lorene Dubon MD Unavailable Unavailable Lorene Dubon MD Unavailable Unavailable Lorene Dubon MD Unavailable Unavailable Lorene Dubon MD Unavailable Unavailable Lorene Dubon MD Unavailable Unavailable Lorene Dubon MD Unavailable Unavailable Lorene Dubon MD Unavailable Unavailable Lorene Dubon MD Unavailable Unavailable Lorene Dubon MD Unavailable Unavailable Lorene Dubon MD Unavailable Unavailable Lorene Dubon MD Unavailable Unavailable Lorene Dubon MD Unavailable Unavailable Lorene Dubon MD Unavailable Unavailable [place] MD Unavailable Unavailable LingLorene MD Unavailable Unavailable [place] MD Unavailable Unavailable LingLorene MD Unavailable Unavailable LingLorene MD Unavailable Unavailable [place] MD Unavailable Unavailable LingLorene MD Unavailable Unavailable LingLorene MD Unavailable Unavailable LingLorene MD Unavailable Unavailable LingLorene MD Unavailable Unavailable [place] MD Unavailable Unavailable LingLorene MD Unavailable Unavailable [place] MD Unavailable Unavailable [place] MD Unavailable Unavailable LingLorene MD Unavailable Unavailable LingLorene MD Unavailable Unavailable [place] MD Unavailable Unavailable LingLorene MD Unavailable Unavailable [place] MD Unavailable Unavailable LingLorene MD Unavailable Unavailable LingLorene MD Unavailable Unavailable LingLorene MD Unavailable Unavailable LingLorene MD Unavailable Unavailable [place] MD Unavailable Unavailable LingLorene MD Unavailable Unavailable [place] MD Unavailable Unavailable [place] MD Unavailable Unavailable LingLorene MD Unavailable Unavailable [place] MD Unavailable Unavailable LingLorene MD Unavailable Unavailable [place] MD Unavailable Unavailable [place] MD Unavailable Unavailable LingLorene MD Unavailable Unavailable LingLorene MD Unavailable Unavailable LingLorene MD Unavailable Unavailable [place] MD Unavailable Unavailable LingLorene MD Unavailable Unavailable LingLorene MD Unavailable Unavailable LingLorene MD Unavailable Unavailable LingLorene MD Unavailable Unavailable [place] MD Unavailable Unavailable [place] MD Unavailable Unavailable LingLorene MD Unavailable Unavailable [place] MD Unavailable Unavailable [place] MD Unavailable Unavailable LingLorene MD Unavailable Unavailable [place] MD Unavailable Unavailable [place] MD Unavailable Unavailable [place] MD Unavailable Unavailable LingLorene MD Unavailable Unavailable [place] MD Unavailable Unavailable [place] MD Unavailable Unavailable LingLorene MD Unavailable Unavailable LingLorene MD Unavailable Unavailable [place] MD Unavailable Unavailable [place] MD Unavailable Unavailable [place], Lorene Rusty GARCIA Unavailable Unavailable [place], Lorene Ojeda Unavailable Unavailable [place], Lorene Ojeda Unavailable Unavailable [place], Lorene Ojeda MD Unavailable Unavailable Ling, Lorene Ojeda MD Unavailable Unavailable Ling, Lorene Ojeda MD Unavailable Unavailable Ling, Lorene Ojeda MD Unavailable Unavailable Ling, Lorene Ojeda Unavailable Unavailable Ling, Lorene Ojeda Unavailable Unavailable [place], Lorene Ojeda MD Unavailable Unavailable [place], Lorene Ojeda MD Unavailable Unavailable Ling, Lorene Ojeda MD Unavailable Unavailable Ling, Lorene Ojeda MD Unavailable Unavailable Ling, Lorene Ojeda MD Unavailable Unavailable [place], Lorene Ojeda MD Unavailable Unavailable [place], Lorene Ojeda MD Unavailable Unavailable [place], Christopher DO Unavailable Unavailable Ling, Christopher DO Unavailable Unavailable [place], Christopher DO Unavailable Unavailable Ling, Christopher DO Unavailable Unavailable [place], Christopher DO Unavailable Unavailable Ling, Christopher DO Unavailable Unavailable [place], Christopher DO Unavailable Unavailable [place], Christopher DO Unavailable Unavailable [place], Christopher DO Unavailable Unavailable [place], Christopher DO Unavailable Unavailable Ling, Christopher DO Unavailable Unavailable Ling, Christopher DO Unavailable Unavailable Cj, Gregg Lentz PH.D., M.D. Unavailable Unavailable Cj, Gregg Lentz PH.D., M.D. Unavailable Unavailable Cj, Gregg Lentz PH.D., M.D. Unavailable Unavailable CjGregg PH.D., M.D. Unavailable Unavailable CjGregg PH.D., M.D. Unavailable Unavailable CjGregg PH.D., M.D. Unavailable Unavailable CjGregg PH.D., M.D. Unavailable Unavailable CjGregg PH.D., M.D. Unavailable Unavailable Gregg Corona PH.D., M.D. Unavailable Unavailable Gregg Corona PH.D., M.D. Unavailable Unavailable CjGregg PH.D., M.D. Unavailable Unavailable CjGregg PH.D., M.D. Unavailable Unavailable Gregg Corona PH.D., M.D. Unavailable Unavailable CjGregg PH.D., M.D. Unavailable Unavailable CjGregg PH.D., M.D. Unavailable Unavailable CjGregg PH.D., M.D. Unavailable Unavailable Cj, C Tro PH.D., M.D. Unavailable Unavailable Cj, C Tor PH.D., M.D. Unavailable Unavailable Cj, C Tor PH.D., M.D. Unavailable Unavailable Cj, C Tor PH.D., M.D. Unavailable Unavailable Cj, C Tor PH.D., M.D. Unavailable Unavailable Cj, C Tor PH.D., M.D. Unavailable Unavailable Cj, C Tor PH.D., M.D. Unavailable Unavailable Cj, C Tor PH.D., M.D. Unavailable Unavailable Cj, C Tor PH.D., M.D. Unavailable Unavailable Cj, C Tor PH.D., M.D. Unavailable Unavailable Cj, C Tor PH.D., M.D. Unavailable Unavailable Cj, C Tor PH.D., M.D. Unavailable Unavailable Cj, C Tor PH.D., M.D. Unavailable Unavailable Cj, C Tor PH.D., M.D. Unavailable Unavailable Cj, C Tor PH.D., M.D. Unavailable Unavailable Cj, C Tor PH.D., M.D. Unavailable Unavailable Cj, C Tor PH.D., M.D. Unavailable Unavailable Cj, C Tor PH.D., M.D. Unavailable Unavailable Cj, C Tor PH.D., M.D. Unavailable Unavailable Cj, C Tor PH.D., M.D. Unavailable Unavailable Cj, C Tor PH.D., M.D. Unavailable Unavailable Cj, C Tor PH.D., M.D. Unavailable Unavailable Cj, C Tor PH.D., M.D. Unavailable Unavailable Cj, C Tor PH.D., M.D. Unavailable Unavailable Cj, C Tor PH.D., M.D. Unavailable Unavailable Cj, C Tor PH.D., M.D. Unavailable Unavailable Cj, C Tor PH.D., M.D. Unavailable Unavailable Cj, C Tor PH.D., M.D. Unavailable Unavailable Cj, C Tor PH.D., M.D. Unavailable Unavailable Cj, C Tor PH.D., M.D. Unavailable Unavailable Cj, C Tor PH.D., M.D. Unavailable Unavailable Cj, C Tor PH.D., M.D. Unavailable Unavailable Cj, C Tor PH.D., M.D. Unavailable Unavailable Cj, C Tor PH.D., M.D. Unavailable Unavailable Cj, C Tor PH.D., M.D. Unavailable Unavailable Cj, C Tor PH.D., M.D. Unavailable Unavailable Cj, C Tor PH.D., M.D. Unavailable Unavailable Cj, C Tor PH.D., M.D. Unavailable Unavailable Cj, C Tor PH.D., M.D. Unavailable Unavailable Cj, C Tor PH.D., M.D. Unavailable Unavailable Cj, C Tor PH.D., M.D. Unavailable Unavailable Cj, C Tor PH.D., M.D. Unavailable Unavailable Cj, C Tor PH.D., M.D. Unavailable Unavailable Cj, C Tor PH.D., M.D. Unavailable Unavailable Cj, C Tor PH.D., M.D. Unavailable Unavailable Jc, C Tor PH.D., M.D. Unavailable Unavailable Cj, C Tor PH.D., M.D. Unavailable Unavailable Cj, C Tor PH.D., M.D. Unavailable Unavailable Cj, C Tor PH.D., M.D. Unavailable Unavailable Cj, C Tor PH.D., M.D. Unavailable Unavailable Cj, C Tor PH.D., M.D. Unavailable Unavailable Cj, C Tor PH.D., M.D. Unavailable Unavailable Cj, C Tor PH.D., M.D. Unavailable Unavailable Cj, C Tor PH.D., M.D. Unavailable Unavailable Cj, C Tor PH.D., M.D. Unavailable Unavailable Cj, C Tor PH.D., M.D. Unavailable Unavailable Cj, C Tor PH.D., M.D. Unavailable Unavailable Cj, C Tor PH.D., M.D. Unavailable Unavailable Cj, C Tor PH.D., M.D. Unavailable Unavailable Cj, C Tor PH.D., M.D. Unavailable Unavailable Cj, C Tor PH.D., M.D. Unavailable Unavailable Cj, C Tor PH.D., M.D. Unavailable Unavailable Cj, C Tor PH.D., M.D. Unavailable Unavailable Cj, C Tor PH.D., M.D. Unavailable Unavailable Cj, C Tor PH.D., M.D. Unavailable Unavailable Cj, C Tor PH.D., M.D. Unavailable Unavailable Re-disclosure Warning The records that you are about to access may contain information from federally-assisted alcohol or drug abuse programs. If such information is present, then the following federally mandated warning applies: This information has been disclosed to you from records protected by federal confidentiality rules (42 CFR part 2). The federal rules prohibit you from making any further disclosure of this information unless further disclosure is expressly permitted by the written consent of the person to whom it pertains or as otherwise permitted by 42 CFR part 2. A general authorization for the release of medical or other information is NOT sufficient for this purpose. The Federal rules restrict any use of the information to criminally investigate or prosecute any alcohol or drug abuse patient.The records that you are about to access may contain highly sensitive health information, the redisclosure of which is protected by Article 27-F of the [facility] Public Health law. If you continue you may have access to information: Regarding HIV / AIDS; Provided by facilities licensed or operated by the [facility] Office of Mental Health; or Provided by the [facility] Office for People With Developmental Disabilities. If such information is present, then the following [facility] mandated warning applies: This information has been disclosed to you from confidential records which are protected by state law. State law prohibits you from making any further disclosure of this information without the specific written consent of the person to whom it pertains, or as otherwise permitted by law. Any unauthorized further disclosure in violation of state law may result in a fine or care home sentence or both. A general authorization for the release of medical or other information is NOT sufficient authorization for further disc losure. Family History Family Member Name Family Member Gender Family Member Status Date o f Status Description Data Source(s) Unknown Unknown Problem [facility] ([facility], ) Unknown Unknown Problem [facility] ([facility] brother Unknown Male Problem [facility] ([facility] ) Unknown Male Problem [facility] ([facility]) Unknown Unknown Encounters Encounter Providers Location Date Indications Data Source(s ) Outpatient Attender: Tor Corona PH.D., M.D. Patrick/Sukhjinder/Brandie coyne/Sagrario 08/03/2021 08:45:00 AM EST [facility] ([facility], ) Outpatient Attender: Gaetano Moura 06/13/2021 08:40:00 AM EDT [facility] ([facility] ) Outpatient Attender: Rusty Bobo 0 02/01/2021 10:40:00 AM EDT [facility] ([facility] ) Outpatient Attender: Reji GARCIA 01/17/20 08:16:10 AM EDT - 01/16/2021 08:37:24 AM EDT [facility] ([facility] ) Outpatient Attender: Rusty Bobo 1 10/01/2019 10:00:00 AM EST [facility] ([facility] ) Immunizations Vaccine Date Status Description Data Source(s) COVID-19 VACCINE Moderna 07/21/2021 12:00:00 AM EDT completed [facility] Vaccine Series Complete: YESThis Data wa s Submitted to [facility] [employer]. Influenza, injectable, MDCK, preservative free, mary valent 06/13/2021 08:53:00 AM EDT completed [facility] ([facility]) COVID-19 VACCINE Moderna 11/24/2020 12:00:00 AM EST completed [facility] Vaccine Series Complete: YESThis Data wa s Submitted to [facility] [employer]. COVID-19 VACCINE Moderna 10/27/2020 12:00:00 AM EST completed [facility] Vaccine Series Complete: NOThis Data was Submitted to [facility] [employer]. Medications Medication Brand Name Start Date Product Form Dose Route Admi nistrative Instructions Pharmacy Instructions Status Indications Reaction Description Data Source(s) Therapeutic Injection 08/18/2021 12:00:00 AM EST completed [facility] ([facility]) Medication administered onsite Covid-19 vaccine, Unspecified 07/21/2021 12:00:00 AM EDT completed [facility] ([facility]) Medication administered onsite Administration Of Flu Vaccine 06/13/2021 12:00:00 AM EDT completed [facility] ([facility]) Medication administered onsite 5 mg 06/02/2021 12:00:00 AM EDT tablet 90 TAKE ONE TABLET BY MOUTH EVERY DAY TAKE ONE TABLET BY MOUTH EVERY DAY SOLD: 06/08/2021 [facility] BLOOD SUGAR DIAGNOSTIC 02/02/2021 12:00:00 AM EDT strip 100 USE TO TEST ONCE A DAY OR DIRECTED USE TO TEST ONCE A DAY OR DIRECTED SOLD: 07/17/2021 [facility] 28 gauge 02/02/2021 12:00:00 AM EDT misc 100 USE TO TEST TWICE A DAY USE TO TEST TWICE A DAY SOLD: 07/10/2021 [facility] BLOOD SUGAR DIAGNOSTIC 02/02/2021 12:00:00 AM EDT strip 100 USE TO TEST ONCE A DAY OR DIRECTED USE TO TEST ONCE A DAY OR DIRECTED SOLD: 04/24/2021 [facility] 28 gauge 02/02/2021 12:00:00 AM EDT misc 100 USE TO TEST TWICE A DAY USE TO TEST TWICE A DAY SOLD: 03/27/2021 [facility] 28 gauge 02/02/2021 12:00:00 AM EDT misc 100 USE TO TEST TWICE A DAY USE TO TEST TWICE A DAY SOLD: 05/17/2021 [facility] 28 gauge 02/02/2021 12:00:00 AM EDT misc 100 USE TO TEST TWICE A DAY USE TO TEST TWICE A DAY SOLD: 02/02/2021 [facility] BLOOD SUGAR DIAGNOSTIC 02/02/2021 12:00:00 AM EDT strip 100 USE TO TEST ONCE A DAY OR DIRECTED USE TO TEST ONCE A DAY OR DIRECTED SOLD: 02/02/2021 [facility] 5 % 01/16/2021 12:00:00 AM EDT cream 60 APPLY 1 APPLICATION TOPICALLY ONCE A WEEK, THEN REPEAT AFTER 7 DAYS APPLY 1 APPLICATION TOPICALLY ONCE A WEE K, THEN REPEAT AFTER 7 DAYS SOLD: 01/16/2021 [facility] 5 % 01/16/2021 12:00:00 AM EDT cream 60 APPLY 1 APPLICATION TOPICALLY ONCE A WEEK, THEN REPEAT AFTER 7 DAYS APPLY 1 APPLICATION TOPICALLY ONCE A WEE K, THEN REPEAT AFTER 7 DAYS SOLD: 01/26/2021 [facility] Covid-19 vaccine, Unspecified 11/24/2020 12:00:00 AM EST completed [facility] ([facility]) Medication administered onsite Covid-19 vaccine, Unspecified 10/27/2020 12:00:00 AM EST completed [facility] ([facility]) Medication administered onsite 100 mg 08/02/2020 12:00:00 AM EST tablet 90 TAKE 1 TABLET BY MOUTH EVERY DAY TAKE 1 TABLET BY MOUTH EVERY DAY SOLD: 08/05/2020 [facility] 100 mg 08/02/2020 12:00:00 AM EST tablet 90 TAKE 1 TABLET BY MOUTH EVERY DAY TAKE 1 TABLET BY MOUTH EVERY DAY SOLD: 02/01/2021 [facility] 100 mg 08/02/2020 12:00:00 AM EST tablet 90 TAKE 1 TABLET BY MOUTH EVERY DAY TAKE 1 TABLET BY MOUTH EVERY DAY SOLD: 05/01/2021 [facility] 100 mg 08/02/2020 12:00:00 AM EST tablet 90 TAKE 1 TABLET BY MOUTH EVERY DAY TAKE 1 TABLET BY MOUTH EVERY DAY SOLD: 08/01/2021 [facility] 100 mg 08/02/2020 12:00:00 AM EST tablet 90 TAKE 1 TABLET BY MOUTH EVERY DAY TAKE 1 TABLET BY MOUTH EVERY DAY SOLD: 11/03/2020 [facility] 5 mg 06/02/2020 12:00:00 AM EDT tablet 90 TAKE ONE TABLET BY MOUTH EVERY DAY TAKE ONE TABLET BY MOUTH EVERY DAY SOLD: 03/06/2021 [facility] 5 mg 06/02/2020 12:00:00 AM EDT tablet 90 TAKE ONE TABLET BY MOUTH EVERY DAY TAKE ONE TABLET BY MOUTH EVERY DAY SOLD: 12/05/2020 [facility] 5 mg 06/02/2020 12:00:00 AM EDT tablet 90 TAKE ONE TABLET BY MOUTH EVERY DAY TAKE ONE TABLET BY MOUTH EVERY DAY SOLD: 09/03/2020 [facility] Insurance Providers Payer name Policy type / Coverage type Policy ID Covered democrat ID Covered democrat's relationship to hinton Policy [place] Plan Information [employer] Medigap Part B [id number] Family Dependent EXCELLUS MEDICARE BLUE PPO G [id number] Self [id number] [facility] Trad/MX Medigap Part B [id number] Family Dependent D [id number] [facility] Trad/MX Commercial [id number] Family Dependent 621 MEDICARE BLUE PPO 306 [id number] SP [id number] Medicare Blue Ppo Commercial Plan One Ppo [id number] Self Plan One Ppo Medicare Blue Ppo Commercial [id number] Self [id number] Medicare Advantage BCBS Medigap Part B [id number] Self Medicare Advantage BCBS Commercial [id number] Self Medicare Blue Ppo Commercial [id number] Self [id number] MEDICARE BLUE PPO 306 [id number] SP [id number] Medicare Blue Ppo Commercial [id number] Self [id number] MEDICARE BLUE PPO 306 [id number] SP [id number] MEDICARE BLUE PPO 306 [id number] SP [id number] Blue Shield MCR Advantage Commercial [id number] Self 3 02/802 MEDICARE BLUE PPO 306 [id number] SP [id number] MEDICARE BLUE PPO 306 [id number] SP [id number] MEDICARE BLUE PPO 306 [id number] SP [id number] MEDICARE BLUE PPO 306 [id number] SP [id number] Blue Shield Medicare P [id number] SELF [id number] [employer] Blue Cross and Blue Shield - [place] Blue Cross/B lue Shield [id number] Self [id number] MEDICARE [id number] SP [id number] A Excellus Medicare Blue PPO [id number] MEDICARE [id number] SP [id number] A Excellus Blue Ppo Health Maintenance Organization (HMO) Usbpi [id number] Family Dependent Usbpi BS Medicare Blue Ppo/Hmo Commercial [id number] Self [id number] BS Medicare Blue Ppo/Hmo Commercial [id number] Self [id number] BS Medicare Blue Ppo/Hmo Commercial [id number] Self [id number] MEDICARE BLUE PPO 306 [id number] SP [id number] Medicare Blue Ppo Commercial [id number] Self [id number] Medicare Blue Ppo Commercial [id number] Self [id number] Excell[employer] Blue Ppo Health Maintenance Organization (HMO) [id number] Family Dependent D [id number] BS [facility] Commercial [id number] Self EXCELLUS BCBS B [id number] S [id number] MEDICARE BLUE PPO P [id number] S [id number] EXCELLUS BCBS B [id number] S [id number] Problems, Conditions, and Diagnoses No Information Surgeries/Procedures Procedure Description Date Indications Data Source(s) THERAPEUTIC PROPHYLACTIC/DX INJECTION SUBQ/IM 08/18/20 12:00:00 AM EST JESSICA ([facility]) OFFICE OUTPATIENT VISIT 25 MINUTES 08/03/2021 12:00:00 AM EST MEDCHRISTIANO ([facility], ) OFFICE OUTPATIENT VISIT 25 MINUTES 06/13/2021 12:00:00 AM EDMartinez LOPEZ ([facility]) OFFICE OUTPATIENT VISIT 25 MINUTES 02/01/2021 12:00:00 AM [facility] Mammogram 12/08/2020 12:00:00 AM ORAL AMARO ([facility]) Bone Mineral Density Test 12/08/2020 12:00:00 AM EDT MED[facility] ([facility]) Results ID Date Data Source [id number] 08/17/2021 11:30:00 AM EST [facility] Name Value Range Interpretation Code Description Data Aisha rce(s) Supporting Document(s) SARS-CoV-2 (COVID-19) RNA [Presence] in Respiratory specimen by ABDIRASHID with probe detection Not [facility]ed [facility] This lab was ordered by [facility] and reported by [employer]. ID Date Data Source [id number] 08/16/2021 03:08:00 PM EST MED[facility] ([facility]) Name Value Range Interpretation Code Description Data Aisha rce(s) Supporting Document(s) Glucose, Fasting 192 mg/dL 70-100 [facility] ([facility]) Blood Urea Nitrogen 27 mg/dL 7-18 [facility] ([facility]) Creatinine For GFR 1.45 mg/dL 0.55-1.30 [facility] ([facility]) Sodium Level 142 meq/L 136-145 [facility] ([facility]) Glomerular Filtration Rate 37.2 MED ENT ([facility]) <content>Units are mL/min/1.73 m2</content>
<content></content>
<content>Chronic Kidney Disease Staging per NKF:</content>
<content></content>
<content>Stage I & II GFR >=60 Normal to Mildly Decreased</content>
<content>Stage III GFR 30- 59 Moderately Decreased</content>
<content>Stage IV GFR 15-29 Severely Decreased</content>
<content>Stage V GFR <15 Very Little GFR Left</content>
<content>ESRD GFR <15 on HORSE RIDING COACH OR INSTRUCTOR</content>
<content></content> Potassium Serum 3.9 meq/L 3.5-5.1 [facility] ([facility]) Chloride Level 108 meq/L 98-107 [facility] ([facility]) Calcium Level 9.5 mg/dL 8.8-10.2 [facility] ([facility]) Anion Gap 10 meq/L 8-16 [facility] Carbon Dioxide Level 24 meq/L 21-32 [facility] ([facility]) Ast/Sgot 26 U/L 7-37 [facility] [facility] Alt/SGPT 44 U/L 12-78 [facility] [facility] Alkaline Phosphatase 100 U/L 45-117 [facility] ([facility]) Bilirubin,Total 1.6 mg/dL 0.2-1.0 [facility] ([facility]) Albumin 3.8 GM/DL 3.2-5.2 [facility] ([place] [facility] Total Protein 7.8 GM/DL 6.4-8.2 [facility] ([facility]) Albumin/Globulin Ratio 1.0 1.2-2.2 [facility] ID Date Data Source [id number] 08/16/2021 03:08:00 PM EST MED[facility] ([facility]) Name Value Range Interpretation Code Description Data Aisha rce(s) Supporting Document(s) Red Blood Count 4.08 10 4.00-5.40 [facility] ([facility]) Hemoglobin 12.8 g/dL 12.0-15.5 [facility] ([place] [facility]) White Blood Count 6.8 10 4.0-10.0 [facility] ([facility]) Hematocrit 38.7 % 36.0-47.0 [facility] [facility] Mean Corpuscular Volume 94.9 fl 80.0-96.0 [facility] ([facility]) Mean Corpuscular HGB Conc 33.1 g/dL 32.0-36.5 MEDE NT ([facility]) Mean Corpuscular Hemoglobin 31.4 pg 27.0-33.0 AL DENT ([facility]) Platelet Count, Automated 214 10 150-450 MEDE NT ([facility]) Red Cell Distribution Width 13.4 % 11.5-14.5 ME DENT ([facility]) Neutrophils % 69.3 % 36.0-66.0 [facility] ([facility]) Lymph % 20.6 % 24.0-44.0 [facility] [facility] Dickenson % 7.5 % 2.0-8.0 [facility] [facility] Eos % 1.9 % 0.0-3.0 [facility] [facility] Immature Granulocyte % 0.3 % 0-3.0 [facility] ([facility]) Baso % 0.4 % 0.0-1.0 [facility] [facility] Nucleated Red Blood Cell % 0.0 % 0-0 MED ENT ([facility]) Neutrophils # 4.7 10 1.5-8.5 [facility] ([facility]) Lymph # 1.4 10 1.5-5.0 [facility] ([place] [facility] Dickenson # 0.5 10 0.0-0.8 [facility] ([place] [facility] Eos # 0.1 10 0.0-0.5 [facility] ([place] [facility] Baso # 0.0 10 0.0-0.2 [facility] ([place] [facility] ID Date Data Source [id number] 08/12/2021 11:11:00 AM EST MED[facility] ([facility]) Name Value Range Interpretation Code Description Data Aisha rce(s) Supporting Document(s) Lactate dehydrogenase [Enzymatic activit y/volume] in Serum or Plasma by Lactate to pyruvate reaction 176 U/L 84-246 [facility] ([facility]) ID Date Data Source [id number] 08/12/2021 11:11:00 AM EST [facility] ([facility]) Name Value Range Interpretation Code Description Data Aisha rce(s) Supporting Document(s) Glucose, Fasting 136 mg/dL 70-100 [facility] ([facility]) Blood Urea Nitrogen 27 mg/dL 7-18 [facility] ([facility]) Creatinine For GFR 1.29 mg/dL 0.55-1.30 [facility] ([facility]) Glomerular Filtration Rate 42.6 MED E[facility] ([place] [facility]) <content>Units are mL/min/1.73 m2</content>
<content></content>
<content>Chronic Kidney Disease Staging per NKF:</content>
<content></content>
<content>Stage I & II GFR >=60 Normal to Mildly Decreased</content>
<content>Stage III GFR 30-59 Moderately Decreased</content>
<content>Stage IV GFR 15-29 Severely Decreased</content>
<content>Stage V GFR <15 Very Little GFR Left</content>
<content>ESRD GFR <15 on HORSE RIDING COACH OR INSTRUCTOR</content>
<content></content> Potassium Serum 4.2 meq/L 3.5-5.1 [facility] ([facility]) This specimen has an elevated potassium level but there is NO visible hemolysis noted. Sodium Level 142 meq/L 136-145 [facility] ([place] [facility]) Chloride Level 111 meq/L 98-107 [facility] Carbon Dioxide Level 24 meq/L 21-32 [facility] Anion Gap 7 meq/L 8-16 [facility] [facility] Calcium Level 9.0 mg/dL 8.8-10.2 [facility] ([facility]) Ast/Sgot 24 U/L 7-37 [facility] ([place] [facility] Alt/SGPT 40 U/L 12-78 [facility] ([facility]) Alkaline Phosphatase 99 U/L 45-117 [facility] Total Protein 7.1 GM/DL 6.4-8.2 [facility] ([facility]) Bilirubin,Total 1.5 mg/dL 0.2-1.0 [facility] ([facility]) Albumin/Globulin Ratio 1.1 1.2-2.2 [facility] ([place] [facility]) Albumin 3.7 GM/DL 3.2-5.2 [facility] ([place] [facility] ID Date Data Source [id number] 08/12/2021 11:11:00 AM EST [facility] ([facility]) Name Value Range Interpretation Code Description Data Aisha rce(s) Supporting Document(s) White Blood Count 5.2 10 4.0-10.0 [facility] ([facility]) Hemoglobin 12.4 g/dL 12.0-15.5 [facility] ([place] [facility]) Red Blood Count 3.94 10 4.00-5.40 [facility] ([facility]) Hematocrit 37.6 % 36.0-47.0 [facility] ([place] [facility]) Mean Corpuscular Volume 95.4 fl 80.0-96.0 [facility] ([place] [facility]) Mean Corpuscular HGB Conc 33.0 g/dL 32.0-36.5 MEDE NT ([place] [facility]) Mean Corpuscular Hemoglobin 31.5 pg 27.0-33.0 ME DENT ([place] [facility]) Neutrophils % 54.6 % 36.0-66.0 [facility] ([facility]) Platelet Count, Automated 202 10 150-450 MEDE NT ([place] [facility]) Red Cell Distribution Width 13.5 % 11.5-14.5 ME DENT ([place] [facility]) Lymph % 30.6 % 24.0-44.0 [facility] ([place] [facility]) Dickenson % 10.7 % 2.0-8.0 [facility] ([place] [facility]) Eos % 3.1 % 0.0-3.0 [facility] ([place] [facility]) Baso % 0.8 % 0.0-1.0 [facility] ([place] [facility]) Nucleated Red Blood Cell % 0.0 % 0-0 [facility] ([place] [facility]) Immature Granulocyte % 0.2 % 0-3.0 [facility] ([place] [facility]) Lymph # 1.6 10 1.5-5.0 [facility] ([place] [facility]) Neutrophils # 2.9 10 1.5-8.5 [facility] ([place] [facility] Baso # 0.0 10 0.0-0.2 [facility] ([place] [facility]) Eos # 0.2 10 0.0-0.5 [facility] ([place] [facility]) Dickenson # 0.6 10 0.0-0.8 [facility] ([place] [facility]) ID Date Data Source [id number] 08/08/2021 07:44:00 AM EST [facility] ([facility]) Name Value Range Interpretation Code Description Data Aisha rce(s) Supporting Document(s) Cholesterol [Mass/volume] in Serum or Plasma 194 mg/dL 131-200 [facility] ([place] [facility]) Triglyceride [Mass/volume] in Serum or Plasma 127 mg/dL 30-150 [facility] ([place] [facility]) Cholesterol in HDL [Mass/volume] in Serum or Plasma 43 mg/dL 35-60 [facility] ([place] [facility]) Cholesterol in LDL [Mass/volume] in Serum or Plasma by calcu lation 126 CALC 50-159 [facility] ([place] [facility]) ID Date Data Source [id number] 08/08/2021 07:44:00 AM EST [facility] ([facility]) Name Value Range Interpretation Code Description Data Aisha rce(s) Supporting Document(s) Urea nitrogen [Mass/volume] in Serum or Plasma 28 mg/dL 7-18 [facility] ([place] [facility]) Glucose [Mass/volume] in Serum or Plasma 144 mg/dL 74-99 [facility] ([place] [facility]) 100-125 mg/dL PRE-DIABETES/FASTING >126 mg/dL DIABETES/FASTING Creatinine 1.2 mg/dL 0.6-1.3 [facility] ([place] [facility]) Sodium [Moles/volume] in Serum or Plasma 145 meq/L 136-145 [facility] ([place] [facility]) Potassium [Moles/volume] in Serum or Plasma 4.3 meq/L 3.5-5.1 [facility] ([place] [facility]) Chloride [Moles/volume] in Serum or Plasma 108 meq/L 98-107 [facility] ([place] [facility]) Carbon dioxide, total [Moles/volume] in Serum or Plasma 27 meq/L 21 -32 [facility] ([place] [facility]) Calcium [Mass/volume] in Serum or Plasma 9.5 mg/dL 8.5-10.1 [facility] ([place] [facility]) Alkaline phosphatase isoenzyme [Units/volume] in Serum or Pl asma 92 mg/dL 46-116 [facility] ([place] [facility]) Aspartate aminotransferase [Enzymatic activity/volume] in Serum or Plasma 26 U/L 15-37 [facility] ([place] [facility] ) Total Bilirubin 1.6 mg/dL 0.2-1.0 [facility] ([facility]) Alanine aminotransferase [Enzymatic activity/volume] in Seru m or Plasma 44 U/L 12-78 [facility] ([place] [facility]) Albumin [Mass/volume] in Serum or Plasma 3.7 g/dL 3.4-5.0 [facility] ([place] [facility]) Proteinase 3 Ab [Units/volume] in Serum 7.0 g/dL 6.4-8.2 [facility] ([place] [facility]) A/G Ratio 1.12 CALC 1.00-1.90 [facility] [facility] Glomerular filtration rate/1.73 sq M pre dicted among blacks [Volume Rate/Area] in Serum or Plasma by Creatinine-based formula (MDRD) 53 mL/min [facility] [facility] <content>CHRONIC KIDNEY DISEASE STAGING PER NKF</content>
<content></content>
<content>STAGE I & II GFR >= 60 NORMAL TO MILDLY DECREASED</content>
<content>STAGE III GFR 30-59 MODERATELY DECREASED</content>
<content>STAGE IV GFR 15-29 SEVERELY DECREASED</content>
<content>STAGE V GFR <15 VERY LITTLE GFR LEFT</content>
<content>ESRD GFR <15 ON HORSE RIDING COACH OR INSTRUCTOR</content>
<content></content> Glomerular filtration rate/1.73 sq M pre dicted among non-blacks [Volume Rate/Area] in Serum or Plasma by Creatinine-based formula (MDRD) 43 mL/min [facility] [facility] ID Date Data Source [id number] 08/08/2021 07:44:00 AM EST [facility] ([facility]) Name Value Range Interpretation Code Description Data Aisha rce(s) Supporting Document(s) Glucose mean value [Mass/volume] in Blood Estimated fr om glycated hemoglobin 160 mg/dL 60-110 [facility] ([place] [facility] ) Hemoglobin A1c/Hemoglobin.total in Blood 7.2 % [facility] ([place] [facility]) Lab Result Notes: Pre-Diabetes 5.7 - 6.4 % Diabetes = or > 6.5% ID Date Data Source [id number] 08/08/2021 07:44:00 AM EST [facility] ([facility]) Name Value Range Interpretation Code Description Data Aisha rce(s) Supporting Document(s) Leukocytes [#/volume] in Blood by Automated count 5.6 x10*3/UL 4.1-10 .9 [facility] ([place] [facility]) Hemoglobin [Mass/volume] in Blood 12.7 g/dL 12.0-18.0 [facility] ([place] [facility]) Erythrocytes [#/volume] in Blood by Automated count 4.03 x10*6/UL 4.2 0-6.30 [facility] ([place] [facility]) MCV 90.2 fL 80.0-97.0 [facility] ([place] [facility] Hematocrit [Volume Fraction] of Blood by Automated count 36.3 % 3 7.0-51.0 [facility] ([place] [facility]) MCH 31.5 pg 26.0-32.0 [facility] ([place] [facility] MCHC 35.0 g/dL 31.0-38.0 [facility] ([place] [facility]) Erythrocyte distribution width [Ratio] by Automated count 13.2 % 11.6-13.7 [facility] ([place] [facility]) Platelets [#/volume] in Blood by Automated count 214 x10*3/UL 140-440 [facility] ([place] [facility]) MPV 9.0 FL 7.8-11.0 [facility] [facility] Lymph % 26.1 % 10.0-58.5 [facility] [facility] Neut % 68.2 % 37.0-92.0 [facility] ([place] [facility] Mid % 5.7 % 1.7-9.3 [facility] ([place] [facility] Lymph # 1.4 x10*3/UL 0.6-4.1 [facility] ([place] [facility]) Mid # 0.4 x10*3/UL 0.1-0.6 [facility] [facility] Neut # 3.8 x10*3/UL 2.0-7.8 [facility] [facility] ID Date Data Source [id number] 08/08/2021 07:44:00 AM EST [facility] Name Value Range Interpretation Code Description Data Aisha rce(s) Supporting Document(s) Hemoglobin A1c/Hemoglobin.total in Blood Laboratory test result [facility] [facility] ID Date Data Source [id number] 07/12/2021 03:34:00 PM EDT [facility] Name Value Range Interpretation Code Description Data Aisha rce(s) Supporting Document(s) Lactate dehydrogenase [Enzymatic activit y/volume] in Serum or Plasma by Lactate to pyruvate reaction 166 U/L 84-246 [facility] ID Date Data Source [id number] 07/12/2021 03:34:00 PM EDT [facility] Name Value Range Interpretation Code Description Data Aisha rce(s) Supporting Document(s) Glucose, Fasting 117 mg/dL 70-100 [facility] ([facility]) Blood Urea Nitrogen 21 mg/dL 7-18 [facility] ([facility]) Creatinine For GFR 1.21 mg/dL 0.55-1.30 [facility] ([facility]) Glomerular Filtration Rate 45.8 [facility] ([place] [facility]) <content>Units are mL/min/1.73 m2</content>
<content></content>
<content>Chronic Kidney Disease Staging per NKF:</content>
<content></content>
<content>Stage I & II GFR >=60 Normal to Mildly Decreased</content>
<content>Stage III GFR 30-59 Moderately Decreased</content>
<content>Stage IV GFR 15-29 Severely Decreased</content>
<content>Stage V GFR <15 Very Little GFR Left</content>
<content>ESRD GFR <15 on HORSE RIDING COACH OR INSTRUCTOR</content>
<content></content> Potassium Serum 4.0 meq/L 3.5-5.1 [facility] ([facility]) Chloride Level 114 meq/L 98-107 [facility] ([facility]) Sodium Level 146 meq/L 136-145 [facility] ([place] [facility]) Carbon Dioxide Level 28 meq/L 21-32 [facility] ([facility]) Anion Gap 4 meq/L 8-16 [facility] [facility] Calcium Level 9.4 mg/dL 8.8-10.2 [facility] ([facility]) Ast/Sgot 23 U/L 7-37 [facility] ([place] [facility] Alkaline Phosphatase 91 U/L 45-117 [facility] ([facility]) Alt/SGPT 41 U/L 12-78 [facility] [facility] Total Protein 6.8 GM/DL 6.4-8.2 [facility] ([facility]) Bilirubin,Total 1.0 mg/dL 0.2-1.0 [facility] ([facility]) Albumin 3.6 GM/DL 3.2-5.2 [facility] ([place] [facility]) Albumin/Globulin Ratio 1.1 1.2-2.2 [facility] [facility] ID Date Data Source [id number] 07/12/2021 03:33:00 PM EDT [facility] ([facility]) Name Value Range Interpretation Code Description Data Aisha rce(s) Supporting Document(s) White Blood Count 6.4 10 4.0-10.0 [facility] ([facility]) Hemoglobin 12.0 g/dL 12.0-15.5 [facility] [facility] Red Blood Count 3.81 10 4.00-5.40 [facility] ([facility]) Hematocrit 36.4 % 36.0-47.0 [facility] [facility] Mean Corpuscular Hemoglobin 31.5 pg 27.0-33.0 [facility] ([place] [facility]) Mean Corpuscular Volume 95.5 fl 80.0-96.0 [facility] ([place] [facility]) Red Cell Distribution Width 13.6 % 11.5-14.5 [facility] ([place] [facility]) Mean Corpuscular HGB Conc 33.0 g/dL 32.0-36.5 [facility] ([place] [facility]) Platelet Count, Automated 188 10 150-450 [facility] ([place] [facility]) Neutrophils % 57.5 % 36.0-66.0 [facility] ([facility]) Dickenson % 10.7 % 2.0-8.0 [facility] [facility] Lymph % 28.1 % 24.0-44.0 [facility] ([place] [facility] Baso % 0.5 % 0.0-1.0 [facility] ([place] [facility] Eos % 3.0 % 0.0-3.0 [facility] ([place] [facility]) Nucleated Red Blood Cell % 0.0 % 0-0 [facility] ([place] [facility]) Immature Granulocyte % 0.2 % 0-3.0 [facility] ([place] [facility]) Neutrophils # 3.7 10 1.5-8.5 [facility] ([facility]) Dickenson # 0.7 10 0.0-0.8 [facility] [facility] Eos # 0.2 10 0.0-0.5 [facility] ([place] [facility] Lymph # 1.8 10 1.5-5.0 [facility] ([place] [facility] Baso # 0.0 10 0.0-0.2 [facility] ([place] [facility] ID Date Data Source [id number] 06/13/2021 08:56:00 AM EDT [facility] Name Value Range Interpretation Code Description Data Aisha rce(s) Supporting Document(s) Lactate dehydrogenase [Enzymatic activit y/volume] in Serum or Plasma by Lactate to pyruvate reaction 188 U/L 84-246 [facility] ID Date Data Source [id number] 06/13/2021 08:55:00 AM EDT [facility] ([facility]) Name Value Range Interpretation Code Description Data Aisha rce(s) Supporting Document(s) Glucose [Mass/volume] in Serum or Plasma 161 mg/dL 74-99 [facility] ([place] [facility]) 100-125 mg/dL PRE-DIABETES/FASTING >126 mg/dL DIABETES/FASTING Creatinine 1.4 mg/dL 0.6-1.3 [facility] ([facility]) Urea nitrogen [Mass/volume] in Serum or Plasma 24 mg/dL 7-18 [facility] ([place] [facility]) Sodium [Moles/volume] in Serum or Plasma 145 meq/L 136-145 [facility] ([place] [facility]) Potassium [Moles/volume] in Serum or Plasma 3.9 meq/L 3.5-5.1 [facility] ([place] [facility]) Chloride [Moles/volume] in Serum or Plasma 108 meq/L 98-107 [facility] ([place] [facility]) Calcium [Mass/volume] in Serum or Plasma 9.1 mg/dL 8.5-10.1 [facility] ([place] [facility]) Carbon dioxide, total [Moles/volume] in Serum or Plasma 27 meq/L 21 -32 [facility] ([place] [facility]) Total Bilirubin 1.5 mg/dL 0.2-1.0 [facility] ([facility]) NOTE: RESULT VERIFIED. Alkaline phosphatase isoenzyme [Units/volume] in Serum or Pl asma 107 mg/dL 46-116 [facility] ([place] [facility]) Alanine aminotransferase [Enzymatic activity/volume] in Seru m or Plasma 44 U/L 12-78 [facility] ([place] [facility]) Aspartate aminotransferase [Enzymatic activity/volume] in Serum or Plasma 27 U/L 15-37 [facility] ([place] [facility] ) Albumin [Mass/volume] in Serum or Plasma 4.0 g/dL 3.4-5.0 [facility] ([place] [facility]) Proteinase 3 Ab [Units/volume] in Serum 7.1 g/dL 6.4-8.2 [facility] ([place] [facility]) Glomerular filtration rate/1.73 sq M pre dicted among non-blacks [Volume Rate/Area] in Serum or Plasma by Creatinine-based formula (MDRD) 36 mL/min [facility] ([place] [facility]) A/G Ratio 1.29 CALC 1.00-1.90 [facility] ([place] [facility] Glomerular filtration rate/1.73 sq M pre dicted among blacks [Volume Rate/Area] in Serum or Plasma by Creatinine-based formula (MDRD) 44 mL/min [facility] [facility] <content>CHRONIC KIDNEY DISEASE STAGING PER NKF</content>
<content></content>
<content>STAGE I & II GFR >= 60 NORMAL TO MILDLY DECREASED</content>
<content>STAGE III GFR 30-59 MODERATELY DECREASED</content>
<content>STAGE IV GFR 15-29 SEVERELY DECREASED</content>
<content>STAGE V GFR <15 VERY LITTLE GFR LEFT</content>
<content>ESRD GFR <15 ON HORSE RIDING COACH OR INSTRUCTOR</content>
<content></content> ID Date Data Source [id number] 06/13/2021 08:55:00 AM EDT [facility] Name Value Range Interpretation Code Description Data Aisha rce(s) Supporting Document(s) Hemoglobin A1c/Hemoglobin.total in Blood 7.0 % [facility] [facility] Lab Result Notes: Pre-Diabetes 5.7 - 6.4 % Diabetes = or > 6.5% Glucose mean value [Mass/volume] in Blood Estimated fr om glycated hemoglobin 154 mg/dL 60-110 [facility] [facility] ID Date Data Source [id number] 06/13/2021 08:55:00 AM EDT [facility] Name Value Range Interpretation Code Description Data Aisha rce(s) Supporting Document(s) Leukocytes [#/volume] in Blood by Automated count 5.9 x10*3/UL 4.1-10 .9 [facility] ([place] [facility]) Erythrocytes [#/volume] in Blood by Automated count 4.07 x10*6/UL 4.2 0-6.30 [facility] [facility] Hematocrit [Volume Fraction] of Blood by Automated count 37.8 % 3 7.0-51.0 [facility] [facility] Hemoglobin [Mass/volume] in Blood 12.7 g/dL 12.0-18.0 [facility] ([place] [facility]) MCV 92.7 fL 80.0-97.0 [facility] ([facility]) MCH 31.1 pg 26.0-32.0 [facility] ([facility]) Erythrocyte distribution width [Ratio] by Automated count 13.4 % 11.6-13.7 [facility] ([place] [facility]) MCHC 33.5 g/dL 31.0-38.0 [facility] ([facility]) Platelets [#/volume] in Blood by Automated count 228 x10*3/UL 140-440 [facility] ([place] [facility]) MPV 8.7 FL 7.8-11.0 [facility] ([facility]) Mid % 6.2 % 1.7-9.3 [facility] ([facility]) Lymph % 21.0 % 10.0-58.5 [facility] ([facility]) Neut % 72.8 % 37.0-92.0 [facility] ([facility]) Lymph # 1.2 x10*3/UL 0.6-4.1 [facility] ([place] [facility]) Neut # 4.3 x10*3/UL 2.0-7.8 [facility] ([place] [facility]) Mid # 0.4 x10*3/UL 0.1-0.6 [facility] ([place] [facility]) ID Date Data Source [id number] 06/13/2021 08:55:00 AM EDT [facility] Name Value Range Interpretation Code Description Data Aisha rce(s) Supporting Document(s) Hemoglobin A1c/Hemoglobin.total in Blood Laboratory test result [facility] [facility]) ID Date Data Source [id number] 02/01/2021 07:48:00 AM EDT [facility] Name Value Range Interpretation Code Description Data Aisha rce(s) Supporting Document(s) Microalbumin Urine 10.4 mg/L 1.3-20.0 [facility] ([facility]) Urine Creatinine 163.5 mg/dL 30.0-125.0 [facility] ([facility]) Microalb/Creat Ratio 6.4 ug/mg 0.0-30.0 [facility] ([facility]) ID Date Data Source [id number] 02/01/2021 07:48:00 AM EDT [facility] ([facility]) Name Value Range Interpretation Code Description Data Aisha rce(s) Supporting Document(s) Cholesterol [Mass/volume] in Serum or Plasma 171 mg/dL 131-200 [facility] ([place] [facility]) Triglyceride [Mass/volume] in Serum or Plasma 193 mg/dL 30-150 [facility] ([place] [facility]) Cholesterol in HDL [Mass/volume] in Serum or Plasma 40 mg/dL 35-60 [facility] ([place] [facility]) Cholesterol in LDL [Mass/volume] in Serum or Plasma by calcu lation 92 CALC 50-159 [facility] ([place] [facility]) ID Date Data Source [id number] 02/01/2021 07:48:00 AM EDT [facility] ([facility]) Name Value Range Interpretation Code Description Data Aisha rce(s) Supporting Document(s) Urea nitrogen [Mass/volume] in Serum or Plasma 29 mg/dL 7-18 [facility] ([place] [facility]) Glucose [Mass/volume] in Serum or Plasma 132 mg/dL 74-99 [facility] ([place] [facility]) 100-125 mg/dL PRE-DIABETES/FASTING >126 mg/dL DIABETES/FASTING Creatinine 1.5 mg/dL 0.6-1.3 [facility] ([place] [facility]) Sodium [Moles/volume] in Serum or Plasma 144 meq/L 136-145 [facility] ([place] [facility]) Potassium [Moles/volume] in Serum or Plasma 4.1 meq/L 3.5-5.1 [facility] ([place] [facility]) Chloride [Moles/volume] in Serum or Plasma 107 meq/L 98-107 [facility] ([place] [facility]) Carbon dioxide, total [Moles/volume] in Serum or Plasma 30 meq/L 21 -32 [facility] ([place] [facility]) Calcium [Mass/volume] in Serum or Plasma 8.5 mg/dL 8.5-10.1 [facility] ([place] [facility]) Alkaline phosphatase isoenzyme [Units/volume] in Serum or Pl asma 100 mg/dL 46-116 [facility] ([place] [facility]) Aspartate aminotransferase [Enzymatic activity/volume] in Serum or Plasma 23 U/L 15-37 [facility] ([place] [facility] ) Alanine aminotransferase [Enzymatic activity/volume] in Seru m or Plasma 35 U/L 12-78 [facility] ([place] [facility]) Total Bilirubin 1.5 mg/dL 0.2-1.0 [facility] ([facility]) A/G Ratio 1.27 CALC 1.00-1.90 [facility] ([place] [facility]) Proteinase 3 Ab [Units/volume] in Serum 6.8 g/dL 6.4-8.2 [facility] ([place] [facility]) Albumin [Mass/volume] in Serum or Plasma 3.8 g/dL 3.4-5.0 [facility] ([place] [facility]) Glomerular filtration rate/1.73 sq M pre dicted among blacks [Volume Rate/Area] in Serum or Plasma by Creatinine-based formula (MDRD) 41 mL/min [facility] [facility] <content>CHRONIC KIDNEY DISEASE STAGING PER NKF</content>
<content></content>
<content>STAGE I & II GFR >= 60 NORMAL TO MILDLY DECREASED</content>
<content>STAGE III GFR 30-59 MODERATELY DECREASED</content>
<content>STAGE IV GFR 15-29 SEVERELY DECREASED</content>
<content>STAGE V GFR <15 VERY LITTLE GFR LEFT</content>
<content>ESRD GFR <15 ON HORSE RIDING COACH OR INSTRUCTOR</content>
<content></content> Glomerular filtration rate/1.73 sq M pre dicted among non-blacks [Volume Rate/Area] in Serum or Plasma by Creatinine-based formula (MDRD) 34 mL/min [facility] [facility] ID Date Data Source [id number] 02/01/2021 07:48:00 AM EDT [facility] ([facility]) Name Value Range Interpretation Code Description Data Aisha rce(s) Supporting Document(s) Hemoglobin A1c/Hemoglobin.total in Blood 7.0 % [facility] ([place] [facility]) Lab Result Notes: Pre-Diabetes 5.7 - 6.4 % Diabetes = or > 6.5% Glucose mean value [Mass/volume] in Blood Estimated fr om glycated hemoglobin 154 mg/dL 60-110 [facility] ([place] [facility] ) ID Date Data Source [id number] 02/01/2021 07:48:00 AM EDT [facility] ([facility]) Name Value Range Interpretation Code Description Data Aisha rce(s) Supporting Document(s) Leukocytes [#/volume] in Blood by Automated count 4.8 x10*3/UL 4.1-10 .9 [facility] [facility] Erythrocytes [#/volume] in Blood by Automated count 3.79 x10*6/UL 4.2 0-6.30 [facility] [facility] Hematocrit [Volume Fraction] of Blood by Automated count 34.6 % 3 7.0-51.0 [facility] [facility] Hemoglobin [Mass/volume] in Blood 12.1 g/dL 12.0-18.0 [facility] ([facility] [place]) MCHC 34.9 g/dL 31.0-38.0 [facility] [facility] MCV 91.1 fL 80.0-97.0 [facility] [facility] MCH 31.8 pg 26.0-32.0 [facility] ([facility]) Platelets [#/volume] in Blood by Automated count 204 x10*3/UL 140-440 [facility] [facility] MPV 8.5 FL 7.8-11.0 [facility] [facility] Erythrocyte distribution width [Ratio] by Automated count 12.9 % 11.6-13.7 [facility] ([facility] [place]) Lymph % 33.9 % 10.0-58.5 [facility] [facility] Neut % 57.8 % 37.0-92.0 [facility] [facility] Mid % 8.3 % 1.7-9.3 [facility] [facility] Mid # 0.4 x10*3/UL 0.1-0.6 [facility] ([facility]) Lymph # 1.6 x10*3/UL 0.6-4.1 [facility] ([facility] [place]) Neut # 2.8 x10*3/UL 2.0-7.8 [facility] ([place]) ID Date Data Source [id number] 02/01/2021 07:48:00 AM EDT [facility] Name Value Range Interpretation Code Description Data Aisha rce(s) Supporting Document(s) Hemoglobin A1c/Hemoglobin.total in Blood Laboratory test result [facility] ID Date Data Source [id number] 01/27/2021 09:23:00 AM EDT [facility] Name Value Range Interpretation Code Description Data Aisha rce(s) Supporting Document(s) Lactate dehydrogenase [Enzymatic activit y/volume] in Serum or Plasma by Lactate to pyruvate reaction 162 U/L 84-246 [facility] ID Date Data Source [id number] 01/27/2021 09:23:00 AM EDT [facility] Name Value Range Interpretation Code Description Data Aisha rce(s) Supporting Document(s) Glucose, Fasting 127 mg/dL 70-100 [facility] ([facility]) Blood Urea Nitrogen 30 mg/dL 7-18 [facility] ([facility]) Creatinine For GFR 1.18 mg/dL 0.55-1.30 [facility] ([facility]) Glomerular Filtration Rate 47.2 [facility] ([place] [facility]) <content>Units are mL/min/1.73 m2</content>
<content></content>
<content>Chronic Kidney Disease Staging per NKF:</content>
<content></content>
<content>Stage I & II GFR >=60 Normal to Mildly Decreased</content>
<content>Stage III GFR 30-59 Moderately Decreased</content>
<content>Stage IV GFR 15-29 Severely Decreased</content>
<content>Stage V GFR <15 Very Little GFR Left</content>
<content>ESRD GFR <15 on HORSE RIDING COACH OR INSTRUCTOR</content>
<content></content> Sodium Level 144 meq/L 136-145 [facility] ([place] [facility]) Chloride Level 111 meq/L 98-107 [facility] ([facility]) Carbon Dioxide Level 29 meq/L 21-32 [facility] ([facility]) Potassium Serum 3.8 meq/L 3.5-5.1 [facility] ([facility]) Anion Gap 4 meq/L 8-16 [facility] [facility] Alt/SGPT 34 U/L 12-78 [facility] [facility] Calcium Level 9.1 mg/dL 8.8-10.2 [facility] ([facility]) Ast/Sgot 19 U/L 7-37 [facility] [facility] Alkaline Phosphatase 92 U/L 45-117 [facility] ([facility]) Bilirubin,Total 1.3 mg/dL 0.2-1.0 [facility] ([facility]) Albumin 3.5 GM/DL 3.2-5.2 [facility] [facility] Albumin/Globulin Ratio 1.1 1.2-2.2 [facility] ([place] [facility]) Total Protein 6.7 GM/DL 6.4-8.2 [facility] ([facility]) ID Date Data Source [id number] 01/27/2021 09:23:00 AM EDT [facility] ([facility]) Name Value Range Interpretation Code Description Data Aisha rce(s) Supporting Document(s) White Blood Count 5.2 10 4.0-10.0 [facility] ([facility]) Red Blood Count 3.81 10 4.00-5.40 [facility] ([facility]) Hemoglobin 12.0 g/dL 12.0-15.5 [facility] ([place] [facility] Hematocrit 37.3 % 36.0-47.0 [facility] [facility] Mean Corpuscular Volume 97.9 fl 80.0-96.0 [facility] ([facility] [place]) Mean Corpuscular Hemoglobin 31.5 pg 27.0-33.0 ME DENT ([place] [facility]) Mean Corpuscular HGB Conc 32.2 g/dL 32.0-36.5 MEDE NT ([facility] [place]) Red Cell Distribution Width 13.6 % 11.5-14.5 [facility] ([facility] [place]) Platelet Count, Automated 177 10 150-450 MEDE NT ([place] [facility]) Neutrophils % 55.2 % 36.0-66.0 [facility] ([facility]) Dickenson % 11.3 % 2.0-8.0 [facility] [facility]) Lymph % 29.2 % 24.0-44.0 [facility] [facility] Eos % 3.1 % 0.0-3.0 [facility] [facility] Nucleated Red Blood Cell % 0.0 % 0-0 [facility] ([place] [facility]) Baso % 0.8 % 0.0-1.0 [facility] [facility] Immature Granulocyte % 0.4 % 0-3.0 [facility] ([place] [facility]) Dickenson # 0.6 10 0.0-0.8 [facility] [facility] Lymph # 1.5 10 1.5-5.0 [facility] [facility] Neutrophils # 2.9 10 1.5-8.5 [facility] ([facility]) Baso # 0.0 10 0.0-0.2 [facility] [facility] Eos # 0.2 10 0.0-0.5 [facility] ([place] [facility] ID Date Data Source [id number] 08/01/2020 11:50:00 AM EST [facility] ([facility]) Name Value Range Interpretation Code Description Data Aisha rce(s) Supporting Document(s) Urine Creatinine 188.3 mg/dL 30.0-125.0 [facility] Microalbumin Urine 11.0 mg/L 1.3-20.0 [facility] Microalb/Creat Ratio 5.8 ug/mg 0.0-30.0 [facility] ID Date Data Source [id number] 07/08/2020 09:00:00 AM EDT [facility] ([facility]) Name Value Range Interpretation Code Description Data Aisha rce(s) Supporting Document(s) Albumin % 59.4 % 55.8-66.1 [facility] ([place] [facility]) --- 07/11/20 1036 --- ALBUMIN % previously reported as: 60.1 % Zcntz-3-Ppbciler % 3.4 % 2.9-4.9 [facility] ([facility]) --- 07/11/20 1037 --- SRTEY-1-QPWR % previously reported as: 3.3 % Bmmgj-8-Ugkjctvvp % 13.6 % 7.1-11.8 [facility] ([facility]) --- 07/11/20 1037 --- XRZEY-2-CPXF % previously reported as: 10.2 % Uqhm-8-Pqcamzsfj % 6.7 % 4.7-7.2 [facility] ([facility]) --- 07/11/20 1037 --- BETA-1-GLOB % previously reported as: 6.4 % Azkp-8-Ddvrbnmij % 5.4 % 3.2-6.5 [facility] ([facility]) --- 07/11/20 1038 --- BETA-2-GLOB % previously reported as: 5.3 % Gamma Globulin % 11.5 % 11.1-18.8 [facility] ([facility]) --- 07/11/20 1038 --- GAMMA GLOB % previously reported as: 14.7 % Ymoph-2-Hxnejzwuj 0.22 GM/DL 0.17-0.41 [facility] ([facility]) --- 07/11/20 1037 --- IENVZ-5-MDLO previously reported as: 0.24 GM/DL Albumin 3.86 GM/DL 3.29-5.55 [facility] ([place] [facility]) --- 07/11/20 1036 --- ALBUMIN SPEP previously reported as: 4.39 GM/DL Kfghb-2-Durqfpakf 0.88 GM/DL 0.42-0.99 [facility] ([facility]) --- 07/11/20 1037 --- UVLNA-8-ECXZ previously reported as: 0.74 GM/DL Iehw-0-Cfwqiuoaa 0.44 GM/DL 0.28-0.60 [facility] ([facility]) --- 07/11/20 1037 --- BETA-1-GLOB previously reported as: 0.47 GM/DL Ialu-7-Djxuqwemb 0.35 GM/DL 0.19-0.55 [facility] ([facility]) --- 07/11/20 1038 --- BETA-2-GLOB previously reported as: 0.39 GM/DL Gamma Globulins 0.75 GM/DL 0.65-1.58 [facility] ([facility]) --- 07/11/20 1038 --- GAMMA GLOB previously reported as: 1.07 GM/DL Total Protein 6.5 GM/DL 6.4-8.2 [facility] Spep Interpretation Laboratory test result [facility] ([place] [facility]) NO M-SPIKE(S)NOTED. --- 07/11/20 1038 --- SPEP INTERPRETA previously reported as: SEE COMMENT M-SPIKE NOTED IN MID-GAMMA REGION. CONCENTRATION = 0.28 GM/DL Laboratory test finding (navigational concept) Laboratory test result [facility] ([place] [facility]) REV'D BY Alejandro AMEZCUA ID Date Data Source [id number] 07/08/2020 09:00:00 AM EDT [facility] Name Value Range Interpretation Code Description Data Aisha rce(s) Supporting Document(s) It Serum Interpretation Laboratory test result [facility] ([facility]) NO MONOCLONAL BANDS NOTED. Laboratory test finding (navigational concept) Laboratory test result [facility] [facility] REV'D BY Alejandro AMEZCUA ID Date Data Source [id number] 07/08/2020 09:00:00 AM EDT [facility] Name Value Range Interpretation Code Description Data Aisha rce(s) Supporting Document(s) Immunoglobulin G 761 mg/dL 681-1648 [facility] ([facility]) Immunoglobulin A 159.0 mg/dL 70-400 [facility] ([facility]) Immunoglobulin M 91.7 mg/dL 40-230 [facility] ([facility]) ID Date Data Source [id number] 07/08/2020 09:00:00 AM EDT [facility] Name Value Range Interpretation Code Description Data Aisha rce(s) Supporting Document(s) Wjpc-7-Zgfigobjuyfdb [Mass/volume] in Serum or Plasma 2.0 mg/L 0.6- 2.4 [facility] [facility]) Siemens Immulite 2000 Immunochemiluminom etric assay (ICMA) . Values obtained with different assay methods or kits cannot be used interchangeably. Results cannot be interpreted as absolute evidence of the presence or absence of malignant disease. Performed at: [address] [id number] Data Integrity Consultant: Nallely Perez MD, Phone: [phone] ID Date Data Source [id number] 07/05/2020 09:35:00 AM EDT [facility]) Name Value Range Interpretation Code Description Data Aisha rce(s) Supporting Document(s) Thyrotropin [Units/volume] in Serum or Plasma by Detec tion limit <= 0.05 mIU/L 3.84 uIU/mL 0.36-3.74 [facility] [place] [facility] ) Thyroxine (T4) free [Mass/volume] in Serum or Plasma 1.02 ng/dL 0.76- 1.46 [facility] [place] [facility]) ID Date Data Source [id number] 07/05/2020 09:35:00 AM EDT [facility]) Name Value Range Interpretation Code Description Data Aisha rce(s) Supporting Document(s) Glucose [Mass/volume] in Serum or Plasma 140 mg/dL 74-99 [facility] ([place] [facility]) 100-125 mg/dL PRE-DIABETES/FASTING >126 mg/dL DIABETES/FASTING Urea nitrogen [Mass/volume] in Serum or Plasma 26 mg/dL 7-18 [facility] ([facility] [place] [facility]) Potassium [Moles/volume] in Serum or Plasma 4.3 meq/L 3.5-5.1 [facility] ([place] [facility]) Sodium [Moles/volume] in Serum or Plasma 143 meq/L 136-145 [facility] ([place] [facility]) Creatinine 1.3 mg/dL 0.6-1.3 [facility] ([facility]) Calcium [Mass/volume] in Serum or Plasma 9.0 mg/dL 8.5-10.1 [facility] ([place] [facility]) Chloride [Moles/volume] in Serum or Plasma 106 meq/L 98-107 [facility] ([place] [facility]) Carbon dioxide, total [Moles/volume] in Serum or Plasma 26 meq/L 21 -32 [facility] ([place] [facility]) Alkaline phosphatase isoenzyme [Units/volume] in Serum or Pl asma 79 mg/dL 46-116 [facility] ([place] [facility]) Total Bilirubin 1.6 mg/dL 0.2-1.0 [facility] ([facility]) NOTE: MICKEY VERIFIED Aspartate aminotransferase [Enzymatic activity/volume] in Serum or Plasma 20 U/L 15-37 [facility] ([facility] [place] [facility] ) Proteinase 3 Ab [Units/volume] in Serum 6.9 g/dL 6.4-8.2 [facility] ([place] [facility]) Albumin [Mass/volume] in Serum or Plasma 3.7 g/dL 3.4-5.0 [facility] ([place] [facility]) Alanine aminotransferase [Enzymatic activity/volume] in Seru m or Plasma 31 U/L 12-78 [facility] ([place] [facility]) A/G Ratio 1.16 CALC 1.00-1.90 [facility] ([facility]) Glomerular filtration rate/1.73 sq M pre dicted among blacks [Volume Rate/Area] in Serum or Plasma by Creatinine-based formula (MDRD) 48 mL/min [facility] [facility] <content>CHRONIC KIDNEY DISEASE STAGING PER NKF</content>
<content></content>
<content>STAGE I & II GFR >= 60 NORMAL TO MILDLY DECREASED</content>
<content>STAGE III GFR 30-59 MODERATELY DECREASED</content>
<content>STAGE IV GFR 15-29 SEVERELY DECREASED</content>
<content>STAGE V GFR <15 VERY LITTLE GFR LEFT</content>
<content>ESRD GFR <15 ON HORSE RIDING COACH OR INSTRUCTOR</content>
<content></content> Glomerular filtration rate/1.73 sq M pre dicted among non-blacks [Volume Rate/Area] in Serum or Plasma by Creatinine-based formula (MDRD) 40 mL/min [facility] [facility] ID Date Data Source [id number] 07/05/2020 09:35:00 AM EDT [facility] Name Value Range Interpretation Code Description Data Aisha rce(s) Supporting Document(s) Hemoglobin A1c/Hemoglobin.total in Blood 6.9 % [facility] ([facility]) Lab Result Notes: Pre-Diabetes 5.7 - 6.4 % Diabetes = or > 6.5% Glucose mean value [Mass/volume] in Blood Estimated fr om glycated hemoglobin 151 mg/dL 60-110 [facility] [facility] ID Date Data Source [id number] 07/05/2020 09:35:00 AM EDT [facility] ([facility]) Name Value Range Interpretation Code Description Data Aisha rce(s) Supporting Document(s) Erythrocytes [#/volume] in Blood by Automated count 3.83 x10*6/UL 4.2 0-6.30 [facility] ([place] [facility]) Hemoglobin [Mass/volume] in Blood 12.1 g/dL 12.0-18.0 [facility] [facility] Leukocytes [#/volume] in Blood by Automated count 5.1 x10*3/UL 4.1-10 .9 [facility] [facility] MCV 91.0 fL 80.0-97.0 [facility] [facility] Hematocrit [Volume Fraction] of Blood by Automated count 34.8 % 3 7.0-51.0 [facility] ([place] [facility]) MCH 31.7 pg 26.0-32.0 [facility] Erythrocyte distribution width [Ratio] by Automated count 13.1 % 11.6-13.7 [facility] [facility] MCHC 34.8 g/dL 31.0-38.0 [facility] [facility] Lymph % 25.8 % 10.0-58.5 [facility] Platelets [#/volume] in Blood by Automated count 185 x10*3/UL 140-440 [facility] ([place] [facility]) MPV 8.8 FL 7.8-11.0 [facility] [facility] Neut % 67.4 % 37.0-92.0 [facility] [facility] Lymph # 1.3 x10*3/UL 0.6-4.1 [facility] ([place] [facility]) Mid % 6.8 % 1.7-9.3 [facility] [facility] Neut # 3.4 x10*3/UL 2.0-7.8 [facility] ([place] [facility]) Mid # 0.4 x10*3/UL 0.1-0.6 [facility] ([place] [facility]) Procedure Social History No Information Vital Signs ID Date Data Source UNK Name Value Range Interpretation Code Description Data Source(s) Heart rate 78 /min 78 /min [facility] ([facility]) Systolic blood pressure 118 mm[Hg] 118 mm[Hg] M EDENT ([place] [facility]) Diastolic blood pressure 72 mm[Hg] 72 mm[Hg] [facility] ([place] [facility]) Body height 63 [in_i] 63 [in_i] [facility] ([facility]) 5'3" Body weight 136.00 [lb_av] 136.00 [lb_av] [facility] T ([facility] [place] [facility]) Body mass index (BMI) [Ratio] 24.1 kg/m2 24.1 k g/m2 [facility] [facility] Diastolic blood pressure 76 mm[Hg] 76 mm[Hg] [facility] [place] [facility] Heart rate 88 /min 88 /min [facility] ([facility]) Body height 63 [in_i] 63 [in_i] [facility] ([facility]) 5'3" Body weight 138.00 [lb_av] 138.00 [lb_av] [facility] T ([facility] [place]) Body mass index (BMI) [Ratio] 24.4 kg/m2 24.4 k g/m2 [facility] [facility] Systolic blood pressure 122 mm[Hg] 122 mm[Hg] [facility] ([place] [facility]) Body mass index (BMI) [Ratio] 24.4 kg/m2 24.4 k g/m2 [facility] ([facility]) Systolic blood pressure 161 mm[Hg] 161 mm[Hg] M [facility] ([facility]) Diastolic blood pressure 77 mm[Hg] 77 mm[Hg] [facility] ([facility]) Heart rate 78 /min 78 /min [facility] ([facility]) Oxygen saturation in Arterial blood by Pulse oximetry 99 % 99 % [facility] ([facility]) [place] body weight 115 [lb_av] 115 [lb_av] [facility] T ([facility]) Body weight 62.597 kg 62.597 kg [facility] ([facility]) Body surface area Derived from formula 1.65 m2 1.65 m2 [facility] ([facility]) Body height 63 [in_i] 63 [in_i] [facility] ([facility]) 5'3" Body weight 138.00 [lb_av] 138.00 [lb_av] [facility] Oxygen saturation in Arterial blood by Pulse oximetry 99 % 99 % [facility] ([facility] [place]) Body mass index (BMI) [Ratio] 23.9 kg/m2 23.9 k g/m2 [facility] ([facility] [place]) Systolic blood pressure 124 mm[Hg] 124 mm[Hg] [facility] ([facility] [place]) Diastolic blood pressure 82 mm[Hg] 82 mm[Hg] [facility] ([facility] [place]) Heart rate 79 /min 79 /min [facility] ([facility]) Body height 63 [in_i] 63 [in_i] [facility] ([facility]) 5'3" Body weight 135.00 [lb_av] 135.00 [lb_av] [facility] T ([facility] [place]) Systolic blood pressure 126 mm[Hg] 126 mm[Hg] [facility] ([facility] [place]) Diastolic blood pressure 68 mm[Hg] 68 mm[Hg] [facility] ([facility] [place] [facility]) Heart rate 74 /min 74 /min [facility] ([facility]) Body height 63 [in_i] 63 [in_i] [facility] ([facility]) 5'3" Body weight 140.00 [lb_av] 140.00 [lb_av] [facility] [place] [facility] Oxygen saturation in Arterial blood by Pulse oximetry 98 % 98 % [facility] [facility] Air Body mass index (BMI) [Ratio] 24.8 kg/m2 24.8 k g/m2 [facility] ([place] [facility]) Systolic blood pressure 126 mm[Hg] 126 mm[Hg] M [facility] ([facility] [place] [facility]) Body height 63 [in_i] 63 [in_i] [facility] ([facility]) 5'3" Body weight 134.00 [lb_av] 134.00 [lb_av] [facility] T ([facility] [place]) Body mass index (BMI) [Ratio] 23.7 kg/m2 23.7 k g/m2 [facility] ([place] [facility]) Diastolic blood pressure 72 mm[Hg] 72 mm[Hg] [facility] [facility] Heart rate 76 /min 76 /min [facility])
[2021-08-21] MEDS ORDERED: LIDOCAINE 2% 100MG/5ML SDV (FOR ANES.) As Ordered ONE (12:57)
[2021-08-21] MEDS ORDERED: ROCURONIUM BROMIDE 50 MG/5 ML VIAL As Ordered ONE (12:57)
[2021-08-21] MEDS ORDERED: MIDAZOLAM INJ 2MG/2ML VIAL (J2250 PER 1MG) As Ordered ONE (12:57)
[2021-08-21] MEDS ORDERED: fentaNYL 100 MCG/2 ML INJECTION (J3010) As Ordered ONE (12:57)
[2021-08-21] MEDS ORDERED: ONDANSETRON 4MG/2ML VIAL As Ordered ONE (12:57)
[2021-08-21] MEDS ORDERED: propofoL 200 MG/20 ML VIAL As Ordered ONE (12:57)
[2021-08-21] MEDS ORDERED: dexameTHASONE 4 MG/ML 1ML VIAL (J1100 PER 1MG) As Ordered ONE (12:58)
[2021-08-21] MEDS ORDERED: LIDOCAINE W/EPINEPHRINE 1% 20ML VIAL As Ordered ONE (14:27)
[2021-08-21] MEDS ORDERED: BACITRACIN OINTMENT 30GM TUBE As Ordered ONE (14:27)
[2021-08-21] MEDS ORDERED: ACETAMINOPHEN 1000MG 100ML IV BTL (OFIRMEV) (J0131 PER 10MG) As Ordered ONE (15:11)
[2021-08-21] MEDS ORDERED: METOCLOPRAMIDE INJ 10MG/2ML VIAL (J2765 PER 1) As Ordered ONE (15:19)
[2021-08-21] MEDS ORDERED: fentaNYL 100 MCG/2 ML INJECTION (J3010) IV PRN (16:15)
[2021-08-21] MEDS ORDERED: oxyCODONE 5MG TAB PO PRN (16:15)
[2021-08-21] MEDS ORDERED: ONDANSETRON 4MG/2ML VIAL IV PRN ×2 (16:15→16:20)
[2021-08-21] MEDS ORDERED: LR 1,000 ML IV SCH ×2 (16:15)
[2021-08-21] MEDS ORDERED: HYDROMORPHONE HCL 0.5 MG/ 0.5 ML SYRINGE (J1170 PER 1) IV PRN (16:15)
[2021-08-21] MEDS ORDERED: HYDROcodone/APAP LIQUID 7.5-325MG 15ML UDC (LORTAB ELIXIR) PO PRN (16:20)
[2021-08-21 17:21] VITALS: BP 163/81
--- NOTE | 2021-08-22 08:27 | ROOPDOC ---
[facility] Report Of Operation Report of Operation DATE OF PROCEDURE: 08/21/21 PREPROCEDURE DIAGNOSES: Right posterior triangle mass. POSTPROCEDURE DIAGNOSES: Same PROCEDURE PERFORMED: Excision right posterior triangle mass with accessory nerve monitoring. SURGEON: MD Cj PHYSICIAN SCRIBE: MD Mario ANESTHESIA: General. ESTIMATED BLOOD LOSS: Approximately 5 mL. COMPLICATIONS: None. REMARKS: . FINDINGS: SPECIMENS REMOVED: Right posterior triangle mass PROCEDURE NOTE: Penny is a 80-year-old woman who was seen the office and diagnosed the above condition. Decision was made in consultation with the patient after explanation of the risks and benefits to undergo the above-named procedure. She was made through same-day surgery program taken to the operating room where she is ministered a general anesthetic via intravenous injection she was then intubated endotracheally. The Nirvana monitor was connected electrodes placed in the platysma. The skin was prepped and draped in usual sterile fashion. Lidocaine was not used. A 15 blade was used to incise the skin over the palpable mass. Using the dissecting electrode we I dissected down to the mass. Posteriorly the nerve was adherent to the mass. We carefully dissected this off. We moved circumferentially around the mass and removed it. The nerve was stimulated and found to be intact. We closed in 2 layers the first large interrupted 4-0 Vicryl suture the skin was closed with 5-0 running locking nylon suture. Patient was then allowed to recover from anesthetic and taken the postanesthesia care in stable condition. There were no complications.. DESCRIPTION OF PROCEDURE: . Tor Corona MD Aug 22, 2021 08:27
== END 2021-08-21 17:28 | disposition home or self-care (01) ==
LOC: M SDC 12:32
PROVIDERS: ATTEND Otolaryngology
DX: C81.91 Hodgkin lymphoma, unspecified, lymph nodes of head, face, and neck (principal); I10 Essential (primary) hypertension; E11.9 Type 2 diabetes mellitus without complications; Z79.899 Other long term (current) drug therapy; Z92.21 Personal history of antineoplastic chemotherapy; Z85.038 Personal history of other malignant neoplasm of large intestine; Z85.71 Personal history of Hodgkin lymphoma
CPT/HCPCS: 21555; 88305; J0131; J1100; J2250; J2405; J2765; J3010

== ENCOUNTER → 2021-08-23 | Outpatient (CLI) | payer MEDICARE ==
[~2021-08-23] MED LIST changes: -CEFD1CAP8 PO; +CEFD300C41 PO; +INSU100I9; +LIDO1CRE42 TOP; +LIDOCAINE 1% MDV 20ML VIAL As Ordered ONE; +LORA1TAB4 PO; +LOSA100T45 PO; -LOSA100T50 PO; +MIDAZOLAM INJ 2MG/2ML VIAL (J2250 PER 1MG) As Ordered ONE; +NS 1,000 ML IV SCH; +ONDA-84 PO; +PROC10TA5 PO; +ceFAZolin 2 GM/D5W 50 ML IV BAG (J0690 PER 500MG) As Ordered ONE; +ceFAZolin SOD 2 GM in IV 1 EA IV ONE; +diphenhydrAMINE 50MG/ML VIAL (J1200) As Ordered ONE; +fentaNYL 100 MCG/2 ML INJECTION As Ordered ONE
[2021-08-23 09:42] LABS: PROTHROMBIN TIME 13.7 SECONDS (12.7-14.5)
[2021-08-23 09:43] LABS: PARTIAL THROMBOPLASTIN TIME 21.9 SECONDS (25.9-37.0)
[2021-08-23 11:59] VITALS: BP 129/76
== END ==
LOC: M IRPRO 07:55
PROVIDERS: ATTEND Specialist
DX: C85.90 Non-Hodgkin lymphoma, unspecified, unspecified site (principal); Z79.899 Other long term (current) drug therapy
CPT/HCPCS: 36415; 36561; 85610; 85730; 99152; 99153; C1769; C1788; C1894; J0690; J1200; J1642; J1644; J2250; J3010

== ENCOUNTER → 2021-09-13 | Outpatient (CLI) | payer MEDICARE ==
[~2021-09-13] MED LIST changes: +CEFD1CAP8 PO; -CEFD300C41 PO; -INSU100I9; -LIDO1CRE42 TOP; -LIDOCAINE 1% MDV 20ML VIAL As Ordered ONE; -LORA1TAB4 PO; -LOSA100T45 PO; +LOSA100T50 PO; -MIDAZOLAM INJ 2MG/2ML VIAL (J2250 PER 1MG) As Ordered ONE; -NS 1,000 ML IV SCH; -ONDA-84 PO; -PROC10TA5 PO; -ceFAZolin 2 GM/D5W 50 ML IV BAG (J0690 PER 500MG) As Ordered ONE; -ceFAZolin SOD 2 GM in IV 1 EA IV ONE; -diphenhydrAMINE 50MG/ML VIAL (J1200) As Ordered ONE; -fentaNYL 100 MCG/2 ML INJECTION As Ordered ONE
--- NOTE | 2021-09-13 09:24 | REP ---
INDICATION: M79.661 PAIN IN RIGHT LOWER LEG. COMPARISON: None. TECHNIQUE: AP and lateral FINDINGS: There is no acute fracture or destructive osseous lesion. Mild degenerative changes are seen at the knee. There is a plantar calcaneal heel spur. IMPRESSION: No acute osseous abnormality. <Electronically signed by Laz Raya > 09/13/21 [id number]
== END ==
LOC: M WUC 09:06
PROVIDERS: ATTEND Physician Assistant
DX: M79.661 Pain in right lower leg (principal)

== ENCOUNTER → 2021-09-19 | Outpatient (POV) | payer MEDICARE ==
[~2021-09-19] VITALS: Ht 160 cm; Wt 60.9 kg
[2021-09-19 13:15] VITALS: BP 159/82
== END ==
LOC: M IRPOV 13:04
PROVIDERS: ATTEND Radiology Diagnostic Radiology
DX: Z45.2 Encounter for adjustment and management of vascular access device (principal)

== ENCOUNTER 2021-09-22 14:06 | Outpatient (CLI) | payer MEDICARE ==
[~2021-09-22] VITALS: Ht 160 cm; Wt 60.0 kg
[~2021-09-22 14:06] MED LIST changes: -LIDO1CRE42 TOP; +SODIUM CHLORIDE 0.9% INJ 10 ML SYR IV SCH
[2021-09-25] MEDS ORDERED: LIDO1CRE42 TOP (09:11)
[2021-09-27] MEDS ORDERED: PROC10TA5 PO (09:47)
[2021-09-27] MEDS ORDERED: ONDA-84 PO (09:47)
[2021-10-19] MEDS ORDERED: LORA1TAB4 PO (10:27)
== END 2021-09-22 15:05 | disposition home or self-care (01) ==
LOC: M INFU 14:06
PROVIDERS: ATTEND Radiology Diagnostic Radiology
DX: C81.91 Hodgkin lymphoma, unspecified, lymph nodes of head, face, and neck (principal)
CPT/HCPCS: 96523; J1642

== ENCOUNTER → 2021-09-22 | Outpatient (CLI) | payer MEDICARE ==
[~2021-09-22] MED LIST changes: -CEFD1CAP8 PO; +CEFD300C41 PO; +LIDO1CRE42 TOP; +LOSA100T45 PO; -LOSA100T50 PO
[2021-09-22 15:41] LABS: BASO % 0.4 % (0.0-1.0); EOS # 0.1 10^3/uL (0.0-0.5); EOS % 1.8 % (0.0-3.0); HEMATOCRIT 34.8 % (36.0-47.0); HEMOGLOBIN 11.4 g/dl (12.0-15.5); LYMPH # 1.4 10^3/uL (1.5-5.0); LYMPH % 25.1 % (24.0-44.0); MEAN CORPUSCULAR HEMOGLOBIN 31.5 pg (27.0-33.0); MEAN CORPUSCULAR HGB CONC 32.8 g/dl (32.0-36.5); MEAN CORPUSCULAR VOLUME 96.1 fl (80.0-96.0); MONO # 0.6 10^3/uL (0.0-0.8); MONO % 10.2 % (2.0-8.0); NEUTROPHILS # 3.4 10^3/uL (1.5-8.5); NEUTROPHILS % 62.3 % (36.0-66.0); PLATELET COUNT, AUTOMATED 167 10^3/uL (150-450); RED BLOOD COUNT 3.62 10^6/uL (4.00-5.40); WHITE BLOOD COUNT 5.5 10^3/uL (4.0-10.0)
[2021-09-22 15:43] LABS: CREATININE FOR GFR 1.31 MG/DL (0.55-1.30); GLOMERULAR FILTRATION RATE 41.7 (>39); POTASSIUM SERUM 3.5 MEQ/L (3.5-5.1)
[2021-09-22 15:44] LABS: ALBUMIN 3.6 GM/DL (3.2-5.2); BILIRUBIN,TOTAL 1.3 MG/DL (0.2-1.0); TOTAL PROTEIN 6.6 GM/DL (6.4-8.2)
== END ==
LOC: M LAB 14:10
PROVIDERS: ATTEND Specialist
DX: C81.90 Hodgkin lymphoma, unspecified, unspecified site (principal)

== ENCOUNTER 2021-11-27 06:48 | Observation (INO) | payer MEDICARE ==
[~2021-11-27] VITALS: Ht 160 cm; Wt 57.4 kg
[~2021-11-27 06:48] MED LIST changes: +INSU100I9 SQ; +LIDO1CRE42 TOP; +LORA1TAB4 PO; +ONDA-84 PO; +PROC10TA5 PO; -SODIUM CHLORIDE 0.9% INJ 10 ML SYR IV SCH
[2021-11-27 07:37] LABS: BASO # 0.1 10^3/uL (0.0-0.2); BASO % 0.7 % (0.0-1.0); EOS % 0.1 % (0.0-3.0); HEMATOCRIT 38.8 % (36.0-47.0); LYMPH # 2.3 10^3/uL (1.5-5.0); LYMPH % 19.9 % (24.0-44.0); MEAN CORPUSCULAR HEMOGLOBIN 31.8 pg (27.0-33.0); MEAN CORPUSCULAR HGB CONC 33.5 g/dl (32.0-36.5); MEAN CORPUSCULAR VOLUME 94.9 fl (80.0-96.0); MONO # 1.2 10^3/uL (0.0-0.8); MONO % 10.9 % (2.0-8.0); NEUTROPHILS # 7.7 10^3/uL (1.5-8.5); NEUTROPHILS % 67.8 % (36.0-66.0); PLATELET COUNT, AUTOMATED 321 10^3/uL (150-450); RED BLOOD COUNT 4.09 10^6/uL (4.00-5.40); WHITE BLOOD COUNT 11.4 10^3/uL (4.0-10.0)
[2021-11-27] MEDS ORDERED: NS 1,000 ML IV ONE (07:40)
[2021-11-27] MEDS ORDERED: ONDANSETRON 4MG/2ML VIAL IV ONE (07:40)
[2021-11-27] MEDS: MORPHINE 4 MG/ML 1ML VIAL/SYRINGE (J2270) IV PRN ×2 (07:50→13:45)
[2021-11-27 07:53] LABS: ALBUMIN 3.7 GM/DL (3.2-5.2); BILIRUBIN,DIRECT 0.2 MG/DL (0.0-0.2); BILIRUBIN,TOTAL 0.8 MG/DL (0.2-1.0); CALCIUM LEVEL 9.2 MG/DL (8.8-10.2); CREATININE FOR GFR 1.29 MG/DL (0.55-1.30); GLOMERULAR FILTRATION RATE 42.4 (>39); POTASSIUM SERUM 4.6 MEQ/L (3.5-5.1); TOTAL PROTEIN 6.9 GM/DL (6.4-8.2)
[2021-11-27] MEDS ORDERED: ISOVUE-370 76% 100ML VIAL As Ordered ONE (08:09)
[2021-11-27 08:21] LABS: CK-MB VALUE MASS < 1.0 NG/ML (<3.6); CPK CREATINE PHOSPHOKINASE 84 U/L (26-192); MB/CK RELATIVE INDEX 1.19 (< OR =4)
[2021-11-27 08:47] LABS: RSV AMPLIFICATION NEGATIVE (NEGATIVE)
[2021-11-27] MEDS: LOSARTAN 50MG TABLET PO SCH (09:00)
[2021-11-27] MEDS ORDERED: VITA100093 PO (09:56)
[2021-11-27] MEDS ORDERED: VITA400C53 PO (09:56)
[2021-11-27] MEDS ORDERED: ACET-897 PO (09:56)
[2021-11-27] MEDS ORDERED: CYAN100050 PO (09:56)
[2021-11-27] MEDS ORDERED: VITA-158 PO (09:56)
[2021-11-27] MEDS ORDERED: HOME MED LIST COMPLETE! XX SCH (10:00)
[2021-11-27] MEDS: NS 0.45% 1,000 ML IV SCH (11:00)
[2021-11-27] MEDS ORDERED: PROCHLORPERAZINE 5 MG TAB (S0183) PO PRN (11:00)
[2021-11-27] MEDS ORDERED: ACETAMINOPHEN 500 MG TAB PO PRN (11:00)
[2021-11-27] MEDS ORDERED: ONDANSETRON 4MG/2ML VIAL IV PRN (11:00)
[2021-11-27] MEDS ORDERED: GLUCOSE 4GM CHEW TABLET PO PRN (11:05)
[2021-11-27] MEDS ORDERED: DEXTROSE 50% 50 ML SYRINGE IV PRN (11:05)
[2021-11-27] MEDS ORDERED: GLUCAGON INJ 1MG VIAL SC PRN (11:05)
[2021-11-27] MEDS: HumaLOG INSULIN (NovoLOG) PER UNIT SC SCH ×2 (12:00→18:15)
[2021-11-27] MEDS: ENOXAPARIN 40MG/0.4ML SYRINGE (J1650 PER 10MG) SC SCH (13:50)
[2021-11-27] MEDS: ASCORBIC ACID 500 MG TAB PO SCH (13:51)
[2021-11-27 15:04] VITALS: BP 147/93
[2021-11-27] MEDS ORDERED: HumaLOG INSULIN (NovoLOG) PER UNIT SC SCH (21:00)
[2021-11-27] MEDS ORDERED: LORazepam 1 MG TAB PO SCH (21:00)
[2021-11-27 22:00] VITALS: BP 102/58
[2021-11-28] MEDS: NS 0.45% 1,000 ML IV SCH ×2 (00:36→07:00)
[2021-11-28 02:00] VITALS: BP 114/66
[2021-11-28 06:00] VITALS: BP 116/70
[2021-11-28 06:44] LABS: HEMATOCRIT 30.6 % (36.0-47.0); MEAN CORPUSCULAR HEMOGLOBIN 31.8 pg (27.0-33.0); MEAN CORPUSCULAR HGB CONC 33.3 g/dl (32.0-36.5); MEAN CORPUSCULAR VOLUME 95.3 fl (80.0-96.0); PLATELET COUNT, AUTOMATED 223 10^3/uL (150-450); RED BLOOD COUNT 3.21 10^6/uL (4.00-5.40); WHITE BLOOD COUNT 7.8 10^3/uL (4.0-10.0)
[2021-11-28 06:49] LABS: HEMOGLOBIN 10.2 g/dl (12.0-15.5)
[2021-11-28 07:04] LABS: CALCIUM LEVEL 8.4 MG/DL (8.8-10.2); CREATININE FOR GFR 1.13 MG/DL (0.55-1.30); GLOMERULAR FILTRATION RATE 49.4 (>39); POTASSIUM SERUM 4.4 MEQ/L (3.5-5.1)
[2021-11-28 10:00] VITALS: BP 129/81
[2021-11-28] MEDS: ENOXAPARIN 40MG/0.4ML SYRINGE (J1650 PER 10MG) SC SCH (10:17)
[2021-11-28] MEDS: HumaLOG INSULIN (NovoLOG) PER UNIT SC SCH ×3 (10:17→13:31)
[2021-11-28 10:19] VITALS: BP 129/80
[2021-11-28] MEDS: LOSARTAN 50MG TABLET PO SCH (10:19)
[2021-11-28] MEDS: ASCORBIC ACID 500 MG TAB PO SCH (10:20)
[2021-11-28] MEDS ORDERED: CEFD300C PO (12:55)
[2021-11-30] MEDS ORDERED: OMEP-173 PO (09:52)
== END 2021-11-28 13:00 | disposition home or self-care (01) ==
LOC: M ED 06:48 → M ED INP 06:49 → ENRESERV 13:35 → M MSPAV 14:54
PROVIDERS: ADMIT Family Medicine; ATTEND Internal Medicine
DX: C81.90 Hodgkin lymphoma, unspecified, unspecified site (principal); C85.10 Unspecified B-cell lymphoma, unspecified site; E11.9 Type 2 diabetes mellitus without complications; I11.9 Hypertensive heart disease without heart failure; Z79.4 Long term (current) use of insulin; Z79.899 Other long term (current) drug therapy; Z92.21 Personal history of antineoplastic chemotherapy; N39.0 Urinary tract infection, site not specified
CPT/HCPCS: 36415; 71045; 74177; 80048; 80076; 81001; 82550; 82553; 83605; 83690; 84484; 85025; 85027; 87040; 87088; 87186; 87631; 87641; 93005; 96372; 96374; 96375; 96376; 99284; G0378; J1650; J1815; J2270; J2405; Q9967

== ENCOUNTER → 2021-12-11 | Outpatient (CLI) | payer MEDICARE ==
[~2021-12-11] MED LIST changes: +ACET-897 PO; +CEFD300C PO; +CYAN100050 PO; +OMEP-173 PO; +VITA-158 PO; +VITA100093 PO; +VITA400C53 PO
== END ==
LOC: M PLARAD 08:06
PROVIDERS: ATTEND Specialist
DX: C81.40 Lymphocyte-rich Hodgkin lymphoma, unspecified site (principal); R91.8 Other nonspecific abnormal finding of lung field
CPT/HCPCS: 78815; A9552

== ENCOUNTER → 2022-03-05 | Outpatient (CLI) | payer MEDICARE ==
[~2022-03-05] MED LIST changes: +GABA-282 PO
== END ==
LOC: M PLARAD 12:40
PROVIDERS: ATTEND Specialist
DX: C81.91 Hodgkin lymphoma, unspecified, lymph nodes of head, face, and neck (principal); R93.6 Abnormal findings on diagnostic imaging of limbs
CPT/HCPCS: 78815; A9552

== ENCOUNTER → 2022-04-09 | Outpatient (CLI) | payer MEDICARE ==
[~2022-04-09] MED LIST changes: +LIDOCAINE 1% MDV 20ML VIAL As Ordered ONE
[2022-04-09 10:22] VITALS: BP 157/88
== END ==
LOC: M IRPRO 08:46
PROVIDERS: ATTEND Internal Medicine
DX: C85.90 Non-Hodgkin lymphoma, unspecified, unspecified site (principal)

== ENCOUNTER → 2022-05-03 | Outpatient (CLI) | payer MEDICARE ==
[~2022-05-03] MED LIST changes: -LIDOCAINE 1% MDV 20ML VIAL As Ordered ONE
[2022-05-03 17:23] LABS: INR 1.03; PARTIAL THROMBOPLASTIN TIME 24.8 SECONDS (25.9-37.0); PROTHROMBIN TIME 13.9 SECONDS (12.7-14.5)
== END ==
LOC: M LAB 15:46
PROVIDERS: ATTEND Specialist
DX: C85.90 Non-Hodgkin lymphoma, unspecified, unspecified site (principal)

== ENCOUNTER → 2022-05-29 | Outpatient (REF) | payer MEDICARE | LOC: M LAB REF 11:09 | PROVIDERS: ATTEND Internal Medicine | DX: N39.0 Urinary tract infection, site not specified (principal) ==

== ENCOUNTER → 2022-06-03 | Outpatient (CLI) | payer MEDICARE | LOC: M LABSMTC 11:58 | PROVIDERS: ATTEND Anesthesiology | DX: Z01.812 Encounter for preprocedural laboratory examination (principal); Z20.822 Contact with and (suspected) exposure to COVID-19 ==

== ENCOUNTER 2022-06-04 08:39 | Day surgery (SDC) | payer MEDICARE ==
[~2022-06-04] VITALS: Ht 160 cm; Wt 55.7 kg
[2022-06-04] MEDS ORDERED: LR 1,000 ML IV SCH ×3 (08:50→13:05)
[2022-06-04] MEDS ORDERED: ROCURONIUM BROMIDE 50 MG/5 ML VIAL As Ordered ONE (09:56)
[2022-06-04] MEDS ORDERED: LIDOCAINE 2% 100MG/5ML SDV (FOR ANES.) As Ordered ONE (09:57)
[2022-06-04] MEDS ORDERED: fentaNYL 100 MCG/2 ML INJECTION As Ordered ONE (10:24)
[2022-06-04] MEDS ORDERED: dexameTHASONE 4 MG/ML 1ML VIAL (J1100 PER 1MG) As Ordered ONE (10:24)
[2022-06-04] MEDS ORDERED: LIDOCAINE W/EPINEPHRINE 1% 20ML VIAL As Ordered ONE (10:55)
[2022-06-04] MEDS ORDERED: BACITRACIN OINTMENT 30GM TUBE As Ordered ONE (10:55)
[2022-06-04] MEDS ORDERED: PHENYLephrine 500MCG 5ML (100MCG/ML) SYRINGE As Ordered ONE ×2 (11:24→11:41)
[2022-06-04] MEDS ORDERED: ePHEDrine SULFATE 25 MG/5 ML(5MG/ML) SYRINGE As Ordered ONE ×2 (11:24→12:11)
[2022-06-04] MEDS ORDERED: SUGAMMADEX SODIUM 500 MG/5 ML VIAL (BRIDION) As Ordered ONE (11:25)
[2022-06-04] MEDS ORDERED: GLYCOPYRROLATE INJ 0.2 MG/ML 2 ML VIAL As Ordered ONE (11:32)
[2022-06-04] MEDS ORDERED: ONDANSETRON 4MG 2ML VIAL As Ordered ONE (11:32)
[2022-06-04] MEDS ORDERED: ACETAMINOPHEN 1000MG 100ML IV BTL (OFIRMEV) (J0131 PER 10MG) As Ordered ONE (11:42)
[2022-06-04] MEDS ORDERED: oxyCODONE 5MG TAB PO PRN (12:30)
[2022-06-04] MEDS ORDERED: ONDANSETRON 4MG 2ML VIAL IV PRN ×2 (12:30→13:10)
[2022-06-04] MEDS ORDERED: MORPHINE 2 MG/ML 1ML VIAL IV PRN (12:30)
[2022-06-04] MEDS ORDERED: fentaNYL 100 MCG/2 ML INJECTION IV PRN (12:30)
[2022-06-04] MEDS ORDERED: ANEXSIA, NORCO 7.5MG/325MG TABLET(HYDROCODONE/APAP) PO PRN (13:05)
[2022-06-04 13:56] VITALS: BP 171/77
== END 2022-06-04 14:00 | disposition home or self-care (01) ==
LOC: M SDC 08:39
PROVIDERS: ATTEND Otolaryngology
DX: C81.91 Hodgkin lymphoma, unspecified, lymph nodes of head, face, and neck (principal); E11.21 Type 2 diabetes mellitus with diabetic nephropathy; I10 Essential (primary) hypertension; Z92.21 Personal history of antineoplastic chemotherapy; C83.30 Diffuse large B-cell lymphoma, unspecified site; R30.0 Dysuria; K57.92 Diverticulitis of intestine, part unspecified, without perforation or abscess without bleeding; E78.00 Pure hypercholesterolemia, unspecified; D50.9 Iron deficiency anemia, unspecified; R59.0 Localized enlarged lymph nodes
CPT/HCPCS: 38510; 88307; J0131; J1100; J2370; J2405; J3010

== ENCOUNTER → 2022-07-05 | Outpatient (CLI) | payer MEDICARE | LOC: M ONCR 12:35 | PROVIDERS: ATTEND General Practice | DX: C81.41 Lymphocyte-rich Hodgkin lymphoma, lymph nodes of head, face, and neck (principal); Z85.72 Personal history of non-Hodgkin lymphomas; Z92.21 Personal history of antineoplastic chemotherapy ==

== ENCOUNTER 2022-07-13 10:21 | Outpatient (RCR) | payer MEDICARE | END 2022-07-16 | LOC: M ONCR 10:21 | PROVIDERS: ATTEND General Practice | DX: C81.41 Lymphocyte-rich Hodgkin lymphoma, lymph nodes of head, face, and neck (principal) ==

== ENCOUNTER → 2022-07-17 | Outpatient (CLI) | payer MEDICARE | LOC: M ONCR 12:50 | PROVIDERS: ATTEND General Practice | DX: Z01.89 Encounter for other specified special examinations (principal) ==

== ENCOUNTER → 2022-07-24 | Outpatient (CLI) | payer MEDICARE ==
[~2022-07-24] MED LIST changes: +GASTROGRAFIN SOLUTION 30ML As Ordered ONE; +ISOVUE-370 76% 100ML VIAL As Ordered ONE
== END ==
LOC: M RAD 09:16
PROVIDERS: ATTEND General Practice
DX: C81.41 Lymphocyte-rich Hodgkin lymphoma, lymph nodes of head, face, and neck (principal); N28.1 Cyst of kidney, acquired; K57.90 Diverticulosis of intestine, part unspecified, without perforation or abscess without bleeding; K43.9 Ventral hernia without obstruction or gangrene
CPT/HCPCS: 70491; 71260; 74177; Q9963; Q9967

== ENCOUNTER 2022-08-15 07:51 | Outpatient (RCR) | payer MEDICARE ==
[~2022-08-15 07:51] MED LIST changes: -GASTROGRAFIN SOLUTION 30ML As Ordered ONE; -ISOVUE-370 76% 100ML VIAL As Ordered ONE
== END 2022-08-15 23:59 | disposition home or self-care (01) ==
LOC: M ONCR 07:51
PROVIDERS: ATTEND Radiology Radiation Oncology
DX: C81.41 Lymphocyte-rich Hodgkin lymphoma, lymph nodes of head, face, and neck (principal)

== ENCOUNTER 2022-09-05 07:35 | Outpatient (RCR) | payer MEDICARE | END 2022-09-15 | LOC: M ONCR 07:35 | PROVIDERS: ATTEND Radiology Radiation Oncology | DX: C81.41 Lymphocyte-rich Hodgkin lymphoma, lymph nodes of head, face, and neck (principal) ==

== ENCOUNTER → 2022-09-26 | Outpatient (CLI) | payer MEDICARE | LOC: M PLARAD 11:42 | PROVIDERS: ATTEND General Practice | DX: C81.41 Lymphocyte-rich Hodgkin lymphoma, lymph nodes of head, face, and neck (principal); I25.10 Atherosclerotic heart disease of native coronary artery without angina pectoris; I70.0 Atherosclerosis of aorta; Z95.828 Presence of other vascular implants and grafts; N28.1 Cyst of kidney, acquired; K42.9 Umbilical hernia without obstruction or gangrene; K65.4 Sclerosing mesenteritis | CPT/HCPCS: 78815; A9552 ==

== ENCOUNTER → 2022-10-02 | Outpatient (CLI) | payer MEDICARE | LOC: M ONCR 12:44 | PROVIDERS: ATTEND General Practice | DX: C81.41 Lymphocyte-rich Hodgkin lymphoma, lymph nodes of head, face, and neck (principal) ==

== ENCOUNTER 2022-10-11 13:13 | Outpatient (RCR) | payer MEDICARE | END 2022-10-16 | LOC: M ONCR 13:13 | PROVIDERS: ATTEND General Practice | DX: C81.4 Lymphocyte-rich Hodgkin lymphoma (principal) ==

== ENCOUNTER → 2022-11-13 | Outpatient (RCR) | payer MEDICARE | LOC: M ONCR 10-17 11:00 | PROVIDERS: ATTEND General Practice | DX: C81.4 Lymphocyte-rich Hodgkin lymphoma (principal) ==

== ENCOUNTER 2022-11-28 13:32 | Outpatient (RCR) | payer MEDICARE | END 2022-12-14 | LOC: M ONCR 13:32 | PROVIDERS: ATTEND General Practice | DX: C81.41 Lymphocyte-rich Hodgkin lymphoma, lymph nodes of head, face, and neck (principal); C81.4 Lymphocyte-rich Hodgkin lymphoma ==

== ENCOUNTER → 2023-01-30 | Outpatient (CLI) | payer MEDICARE ==
[~2023-01-30] MED LIST changes: +LORA1TAB23 PO; -LORA1TAB4 PO; -LOSA100T45 PO; +LOSA100T46 PO
== END ==
LOC: M PLARAD 11:45
PROVIDERS: ATTEND Specialist
DX: C81.4 Lymphocyte-rich Hodgkin lymphoma (principal)
CPT/HCPCS: 78815; A9552

== ENCOUNTER → 2023-02-28 | Outpatient (CLI) | payer MEDICARE ==
[~2023-02-28] MED LIST changes: +CYAN-1 PO; -CYAN100050 PO
== END ==
LOC: M ONCR 13:32
PROVIDERS: ATTEND General Practice
DX: C81.4 Lymphocyte-rich Hodgkin lymphoma (principal); C81.41 Lymphocyte-rich Hodgkin lymphoma, lymph nodes of head, face, and neck; Z71.2 Person consulting for explanation of examination or test findings; Z79.620 Long term (current) use of immunosuppressive biologic; Z92.21 Personal history of antineoplastic chemotherapy; Z92.3 Personal history of irradiation

== ENCOUNTER → 2023-07-08 | Outpatient (CLI) | payer MEDICARE ==
[~2023-07-08] MED LIST changes: -CEFD300C41 PO; +CEFD300C42 PO; +INSU100I24 SQ; -INSU100I9 SQ; +LEVO25TA5 PO; -LIDO1CRE42 TOP; +LIDO30CR18 TOP; +MECL-209 PO; -MECL1TAB31 PO; +ZYRTTAB8 PO
== END ==
LOC: M PLARAD 09:52
PROVIDERS: ATTEND Specialist
DX: C81.90 Hodgkin lymphoma, unspecified, unspecified site (principal)
CPT/HCPCS: 78815; A9552

== ENCOUNTER → 2023-08-30 | Outpatient (CLI) | payer MEDICARE ==
[~2023-08-30] MED LIST changes: +CEFD1CAP9 PO; -CEFD300C42 PO
== END ==
LOC: M ONCR 09:24
PROVIDERS: ATTEND General Practice
DX: C81.4 Lymphocyte-rich Hodgkin lymphoma (principal); C81.41 Lymphocyte-rich Hodgkin lymphoma, lymph nodes of head, face, and neck; Z79.620 Long term (current) use of immunosuppressive biologic; Z79.890 Hormone replacement therapy; Z79.899 Other long term (current) drug therapy; Z71.2 Person consulting for explanation of examination or test findings; Z92.21 Personal history of antineoplastic chemotherapy; Z92.3 Personal history of irradiation

== ENCOUNTER → 2023-10-22 | Outpatient (CLI) | payer MEDICARE ==
[~2023-10-22] MED LIST changes: +GASTROGRAFIN SOLUTION 30ML As Ordered ONE; +ISOVUE-370 76% 100ML VIAL As Ordered ONE
== END ==
LOC: M RAD 14:37
PROVIDERS: ATTEND Nurse Practitioner
DX: N28.1 Cyst of kidney, acquired (principal); C81.93 Hodgkin lymphoma, unspecified, intra-abdominal lymph nodes; K57.30 Diverticulosis of large intestine without perforation or abscess without bleeding; Z98.890 Other specified postprocedural states
CPT/HCPCS: 70491; 71260; 74177; Q9963; Q9967

== ENCOUNTER → 2023-12-03 | Outpatient (CLI) | payer MEDICARE ==
[~2023-12-03] MED LIST changes: -GASTROGRAFIN SOLUTION 30ML As Ordered ONE; -ISOVUE-370 76% 100ML VIAL As Ordered ONE
== END ==
LOC: M ONCR 09:21
PROVIDERS: ATTEND General Practice
DX: C81.4 Lymphocyte-rich Hodgkin lymphoma (principal); C81.41 Lymphocyte-rich Hodgkin lymphoma, lymph nodes of head, face, and neck; Z71.2 Person consulting for explanation of examination or test findings; Z79.620 Long term (current) use of immunosuppressive biologic; Z79.890 Hormone replacement therapy; Z79.899 Other long term (current) drug therapy; Z92.21 Personal history of antineoplastic chemotherapy; Z92.3 Personal history of irradiation

== ENCOUNTER → 2023-12-04 | Outpatient (CLI) | payer MEDICARE ==
[~2023-12-04] MED LIST changes: +LIDOCAINE 1% MDV 20ML VIAL As Ordered ONE
[2023-12-04 08:57] VITALS: TEMP 97.6
[2023-12-04 10:10] VITALS: BP 172/81; O2SAT 100
== END ==
LOC: M IRPRO 08:40
PROVIDERS: ATTEND Specialist
DX: R59.0 Localized enlarged lymph nodes (principal)

== ENCOUNTER → 2024-01-14 | Outpatient (RCR) | payer MEDICARE ==
[~2024-01-14] MED LIST changes: -LIDOCAINE 1% MDV 20ML VIAL As Ordered ONE
== END ==
LOC: M ONCR 12-24 13:25
PROVIDERS: ATTEND General Practice
DX: Z51.0 Encounter for antineoplastic radiation therapy (principal); C81.4 Lymphocyte-rich Hodgkin lymphoma

== ENCOUNTER 2024-01-17 13:02 | Outpatient (RCR) | payer MEDICARE ==
[2024-01-20] MEDS ORDERED: BACT400T PO (13:52)
[2024-01-26] MEDS ORDERED: BACT400T PO (09:26)
[2024-01-26] MEDS ORDERED: LEVO50TA5 PO (09:26)
== END 2024-02-14 ==
LOC: M ONCR 13:02
PROVIDERS: ATTEND General Practice
DX: Z51.0 Encounter for antineoplastic radiation therapy (principal); C81.4 Lymphocyte-rich Hodgkin lymphoma

== ENCOUNTER 2024-01-26 04:21 | Inpatient (IN) | payer MEDICARE ==
[~2024-01-26] VITALS: Ht 160 cm; Wt 58.5 kg
[~2024-01-26 04:21] MED LIST changes: +BACT400T PO
[2024-01-26 04:47] LABS: BASO % 0.2 % (0.0-1.0); EOS # 0.2 10^3/uL (0.0-0.5); HEMATOCRIT 32.3 % (36.0-47.0); LYMPH # 0.4 10^3/uL (1.5-5.0); LYMPH % 8.3 % (24.0-44.0); MEAN CORPUSCULAR HEMOGLOBIN 33.4 pg (27.0-33.0); MEAN CORPUSCULAR HGB CONC 34.1 g/dl (32.0-36.5); MEAN CORPUSCULAR VOLUME 98.2 fl (80.0-96.0); MONO # 0.6 10^3/uL (0.0-0.8); MONO % 11.9 % (2.0-8.0); NEUTROPHILS # 3.7 10^3/uL (1.5-8.5); NEUTROPHILS % 74.8 % (36.0-66.0); PLATELET COUNT, AUTOMATED 167 10^3/uL (150-450); RED BLOOD COUNT 3.29 10^6/uL (4.00-5.40)
[2024-01-26] MEDS: NS 1,000 ML IV ONE (04:54)
[2024-01-26] MEDS: ONDANSETRON 4MG 2ML VIAL IV ONE (04:54)
[2024-01-26 04:59] LABS: INR 1.15; PARTIAL THROMBOPLASTIN TIME 21.4 SECONDS (24.8-34.2); PROTHROMBIN TIME 14.4 SECONDS (12.5-14.5)
[2024-01-26 05:19] LABS: LIPASE 18 U/L (12-53)
[2024-01-26 05:20] LABS: CK-MB VALUE MASS < 1.0 NG/ML (<3.6)
[2024-01-26 05:21] LABS: ALBUMIN 3.3 G/DL (3.2-5.2); ALKALINE PHOSPHATASE 110 U/L (46-116); ALT/SGPT 11 U/L (7.0-40); AST/SGOT 13 U/L (<34); BILIRUBIN,DIRECT 0.2 MG/DL (<0.4); BILIRUBIN,TOTAL 0.8 MG/DL (0.3-1.2); BLOOD UREA NITROGEN 24 MG/DL (9-23); CALCIUM LEVEL 9.3 MG/DL (8.3-10.6); CARBON DIOXIDE LEVEL 24 MMOL/L (20-31); CHLORIDE LEVEL 109 MMOL/L (98-107); CPK CREATINE PHOSPHOKINASE 87 U/L (34-145); GLOMERULAR FILTRATION RATE 35.5 (>32); GLUCOSE, FASTING 149 MG/DL (74-106); MB/CK RELATIVE INDEX 1.14 (< OR =4); POTASSIUM SERUM 4.1 MMOL/L (3.5-5.1); SODIUM LEVEL 143 MMOL/L (136-145); TOTAL PROTEIN 6.1 G/DL (5.7-8.2)
[2024-01-26] MEDS ORDERED: ISOVUE-370 76% 100ML VIAL As Ordered ONE (05:26)
[2024-01-26 06:24] LABS: CK-MB VALUE MASS < 1.0 NG/ML (<3.6)
[2024-01-26 06:27] LABS: CPK CREATINE PHOSPHOKINASE 61 U/L (34-145); MB/CK RELATIVE INDEX 1.63 (< OR =4)
[2024-01-26] MEDS ORDERED: BACT400T PO (09:26)
[2024-01-26] MEDS ORDERED: LEVO50TA5 PO (09:26)
[2024-01-26] MEDS ORDERED: HOME MED LIST COMPLETE! XX SCH (09:30)
[2024-01-26] MEDS ORDERED: GLUCAGON INJ 1MG VIAL SC PRN (09:55)
[2024-01-26] MEDS ORDERED: GLUCOSE 4 GM CHEW PO PRN (09:55)
[2024-01-26] MEDS ORDERED: DEXTROSE 50% 50ML SYRINGE IV PRN (09:55)
[2024-01-26] MEDS ORDERED: ONDANSETRON 4MG 2ML VIAL IV PRN (10:25)
[2024-01-26] MEDS: NS 1,000 ML IV SCH (10:56)
[2024-01-26] MEDS: PANTOPRAZOLE 40MG VIAL IV SCH (10:56)
[2024-01-26] MEDS: HEPARIN SOD (PORCINE) 5000UNITS/ML 1ML VIAL/SYRINGE SC SCH (11:00)
[2024-01-26 12:46] VITALS: BP 145/67; TEMP 97.5; O2SAT 97
[2024-01-26] MEDS: INSULIN LISPRO (NovoLOG) PER UNIT SC SCH (12:59)
[2024-01-26 16:07] VITALS: BP 100/58; TEMP 97.4; O2SAT 95
[2024-01-26 20:12] VITALS: BP 115/58; TEMP 98.7; O2SAT 95
[2024-01-26] MEDS: MUPIROCIN 2% OINT 22 GM TUBE TOP SCH (20:20)
[2024-01-27 00:47] VITALS: BP 120/60; TEMP 97.3; O2SAT 98
[2024-01-27 04:29] VITALS: BP 117/63; TEMP 97.9; O2SAT 98
[2024-01-27 06:29] LABS: CALCIUM LEVEL 7.8 MG/DL (8.3-10.6); CREATININE FOR GFR 1.24 MG/DL (0.55-1.30); GLOMERULAR FILTRATION RATE 44.2 (>32); MAGNESIUM LEVEL 1.4 MG/DL (1.8-2.4); POTASSIUM SERUM 4.2 MMOL/L (3.5-5.1)
[2024-01-27 07:38] VITALS: BP 113/59; TEMP 97.4; O2SAT 98
[2024-01-27] MEDS: MAG SULF 1GM/100ML (MAG RUN) 1 GM in IV 1 EA IV SCH (08:48)
[2024-01-27 12:00] VITALS: BP 109/53; TEMP 98; O2SAT 97
[2024-01-27 16:00] VITALS: BP 126/64; TEMP 97.6; O2SAT 96
[2024-01-27 21:21] VITALS: BP 118/60; TEMP 97.8; O2SAT 98
[2024-01-28 03:55] VITALS: BP 118/72; TEMP 97.6; O2SAT 98
[2024-01-28] MEDS: LEVOTHYROXINE 50MCG TABLET (0.05MG) PO SCH (05:23)
[2024-01-28 06:00] LABS: BASO % 0.6 % (0.0-1.0); EOS # 0.2 10^3/uL (0.0-0.5); EOS % 4.6 % (0.0-3.0); HEMATOCRIT 26.3 % (36.0-47.0); HEMOGLOBIN 8.5 g/dl (12.0-15.5); LYMPH # 0.3 10^3/uL (1.5-5.0); LYMPH % 7.8 % (24.0-44.0); MEAN CORPUSCULAR HEMOGLOBIN 32.4 pg (27.0-33.0); MEAN CORPUSCULAR HGB CONC 32.3 g/dl (32.0-36.5); MEAN CORPUSCULAR VOLUME 100.4 fl (80.0-96.0); MONO # 0.4 10^3/uL (0.0-0.8); MONO % 11.3 % (2.0-8.0); NEUTROPHILS # 2.6 10^3/uL (1.5-8.5); NEUTROPHILS % 75.4 % (36.0-66.0); PLATELET COUNT, AUTOMATED 114 10^3/uL (150-450); RED BLOOD COUNT 2.62 10^6/uL (4.00-5.40); WHITE BLOOD COUNT 3.5 10^3/uL (4.0-10.0)
[2024-01-28 06:30] LABS: CALCIUM LEVEL 7.8 MG/DL (8.3-10.6); CREATININE FOR GFR 1.17 MG/DL (0.55-1.30); GLOMERULAR FILTRATION RATE 47.3 (>32); MAGNESIUM LEVEL 1.9 MG/DL (1.8-2.4)
[2024-01-28 07:44] VITALS: BP 138/61; TEMP 97.3; O2SAT 97
== END 2024-01-28 12:48 | disposition home or self-care (01) | DRG 394 ==
LOC: M ED 04:21 → M ED INP 09:25 → M PCU 12:25
PROVIDERS: ADMIT Student in an Organized Health Care Education/Training Program; ATTEND Student in an Organized Health Care Education/Training Program
DX: K52.0 Gastroenteritis and colitis due to radiation (principal); C83.30 Diffuse large B-cell lymphoma, unspecified site; N17.9 Acute kidney failure, unspecified; E83.42 Hypomagnesemia; E86.0 Dehydration; E11.9 Type 2 diabetes mellitus without complications; K21.9 Gastro-esophageal reflux disease without esophagitis; Z79.890 Hormone replacement therapy; Z79.899 Other long term (current) drug therapy; Z90.49 Acquired absence of other specified parts of digestive tract

== ENCOUNTER → 2024-02-06 | Outpatient (REF) | payer MEDICARE ==
[~2024-02-06] MED LIST changes: +LEVO50TA5 PO
[2024-02-06 14:32] LABS: IRON (FE) 49 UG/DL (50-170); TOTAL IRON BINDING CAPACITY 306 UG/DL (250-425)
[2024-02-06 14:35] LABS: VITAMIN B12 LEVEL > 2000 PG/ML (211-911)
== END ==
LOC: M LAB REF 12:40
PROVIDERS: ATTEND Internal Medicine
DX: D64.9 Anemia, unspecified (principal); N18.32 Chronic kidney disease, stage 3b

== ENCOUNTER → 2024-02-26 | Outpatient (CLI) | payer MEDICARE ==
[~2024-02-26] MED LIST changes: +GASTROGRAFIN SOLUTION 30ML As Ordered ONE; +ISOVUE-370 76% 100ML VIAL As Ordered ONE
== END ==
LOC: M RAD 08:24
PROVIDERS: ATTEND Internal Medicine Hematology & Oncology
DX: C81.93 Hodgkin lymphoma, unspecified, intra-abdominal lymph nodes (principal); K76.0 Fatty (change of) liver, not elsewhere classified; N28.1 Cyst of kidney, acquired; K57.30 Diverticulosis of large intestine without perforation or abscess without bleeding
CPT/HCPCS: 71260; 74177; Q9963; Q9967

== ENCOUNTER 2024-04-25 10:47 | Inpatient (IN) | payer MEDICARE ==
[~2024-04-25] VITALS: Ht 160 cm; Wt 55.5 kg
[~2024-04-25 10:47] MED LIST changes: -GASTROGRAFIN SOLUTION 30ML As Ordered ONE; -ISOVUE-370 76% 100ML VIAL As Ordered ONE; +OMEP40CA4 PO
[2024-04-25] MEDS: EMLA CREAM 5GM TUBE (LIDOCAINE/PRILOCAINE) TOP ONE (12:05)
[2024-04-25 12:38] LABS: BASO % 0.3 % (0.0-1.0); EOS # 0.1 10^3/uL (0.0-0.5); EOS % 1.6 % (0.0-3.0); HEMATOCRIT 30.3 % (36.0-47.0); HEMOGLOBIN 9.6 g/dl (12.0-15.5); LYMPH # 0.5 10^3/uL (1.5-5.0); LYMPH % 8.4 % (24.0-44.0); MEAN CORPUSCULAR HGB CONC 31.7 g/dl (32.0-36.5); MEAN CORPUSCULAR VOLUME 97.7 fl (80.0-96.0); MONO # 0.6 10^3/uL (0.0-0.8); MONO % 9.5 % (2.0-8.0); NEUTROPHILS # 5.1 10^3/uL (1.5-8.5); NEUTROPHILS % 79.9 % (36.0-66.0); PLATELET COUNT, AUTOMATED 162 10^3/uL (150-450); WHITE BLOOD COUNT 6.3 10^3/uL (4.0-10.0)
[2024-04-25 12:53] LABS: INR 1.13; PARTIAL THROMBOPLASTIN TIME 22.1 SECONDS (24.8-34.2); PROTHROMBIN TIME 14.2 SECONDS (12.5-14.5)
[2024-04-25 13:09] LABS: CK-MB VALUE MASS < 1.0 NG/ML (<3.6); LIPASE 16 U/L (12-53)
[2024-04-25 13:11] LABS: ALBUMIN 3.3 G/DL (3.2-5.2); ALKALINE PHOSPHATASE 110 U/L (46-116); ALT/SGPT 11 U/L (7.0-40); AMYLASE 27 U/L (30-118); AST/SGOT 12 U/L (<34); BILIRUBIN,DIRECT 0.3 MG/DL (<0.4); BILIRUBIN,TOTAL 0.9 MG/DL (0.3-1.2); BLOOD UREA NITROGEN 31 MG/DL (9-23); CARBON DIOXIDE LEVEL 30 MMOL/L (20-31); CHLORIDE LEVEL 104 MMOL/L (98-107); CREATININE FOR GFR 1.14 MG/DL (0.55-1.30); GLOMERULAR FILTRATION RATE 48.7 (>32); GLUCOSE, FASTING 132 MG/DL (74-106); POTASSIUM SERUM 4.1 MMOL/L (3.5-5.1); SODIUM LEVEL 140 MMOL/L (136-145); TOTAL PROTEIN 6.5 G/DL (5.7-8.2)
[2024-04-25 13:12] LABS: CPK CREATINE PHOSPHOKINASE 42 U/L (34-145); MB/CK RELATIVE INDEX 2.38 (< OR =4)
[2024-04-25] MEDS ORDERED: ISOVUE-370 76% 100ML VIAL As Ordered ONE (14:07)
[2024-04-25] MEDS: NS 1,000 ML IV ONE (17:39)
[2024-04-25] MEDS ORDERED: MOM 30ML SUSPENSION UDC PO PRN (18:15)
[2024-04-25] MEDS ORDERED: GLUCAGON INJ 1MG VIAL SC PRN (18:20)
[2024-04-25] MEDS ORDERED: HOME MED LIST COMPLETE! XX SCH (18:20)
[2024-04-25] MEDS ORDERED: GLUCOSE 4 GM CHEW PO PRN (18:20)
[2024-04-25] MEDS ORDERED: DEXTROSE 50% 50ML SYRINGE IV PRN (18:20)
[2024-04-25] MEDS: PANTOPRAZOLE 40MG VIAL IV ONE (20:00)
[2024-04-25] MEDS: INSULIN LISPRO (NovoLOG) PER UNIT SC SCH (20:00)
[2024-04-25] MEDS: methylPREDNISolone 125MG 2ML VIAL IV ONE (20:00)
[2024-04-25] MEDS: LR 1,000 ML IV SCH (20:01)
[2024-04-25] MEDS: DOCUSATE SODIUM 100MG CAPSULE PO SCH (20:10)
[2024-04-26 00:15] VITALS: BP 129/66; TEMP 97.2; O2SAT 98
[2024-04-26] MEDS: NORCO, ANEXSIA 5/325MG TABLET (HYDROcodone/ACETAMINOPHEN) PO ONE (01:35)
[2024-04-26 04:00] VITALS: BP 118/58; TEMP 97.9; O2SAT 93
[2024-04-26] MEDS: LEVOTHYROXINE 50MCG TABLET (0.05MG) PO SCH (06:00)
[2024-04-26] MEDS ORDERED: oxyCODONE 5MG TAB PO PRN (07:10)
[2024-04-26 08:05] LABS: BASO % 0.2 % (0.0-1.0); HEMATOCRIT 27.1 % (36.0-47.0); HEMOGLOBIN 8.7 g/dl (12.0-15.5); LYMPH # 0.3 10^3/uL (1.5-5.0); LYMPH % 5.4 % (24.0-44.0); MEAN CORPUSCULAR HEMOGLOBIN 30.7 pg (27.0-33.0); MEAN CORPUSCULAR HGB CONC 32.1 g/dl (32.0-36.5); MEAN CORPUSCULAR VOLUME 95.8 fl (80.0-96.0); MONO # 0.1 10^3/uL (0.0-0.8); MONO % 1.1 % (2.0-8.0); NEUTROPHILS # 5.7 10^3/uL (1.5-8.5); PLATELET COUNT, AUTOMATED 151 10^3/uL (150-450); RED BLOOD COUNT 2.83 10^6/uL (4.00-5.40); WHITE BLOOD COUNT 6.1 10^3/uL (4.0-10.0)
[2024-04-26] MEDS: ENOXAPARIN 40MG/0.4ML SYRINGE (J1650 PER 10MG) SC SCH (08:10)
[2024-04-26] MEDS: methylPREDNISolone 125MG 2ML VIAL IV SCH (08:11)
[2024-04-26] MEDS: INSULIN LISPRO (NovoLOG) PER UNIT SC SCH (08:11)
[2024-04-26] MEDS: PANTOPRAZOLE 40MG VIAL IV SCH (08:11)
[2024-04-26] MEDS: ASCORBIC ACID 500 MG TAB PO SCH (08:12)
[2024-04-26] MEDS: VITAMIN D 1,000 INTERNATIONAL UNITS TABLET PO SCH (08:12)
[2024-04-26] MEDS: LOSARTAN 50MG TABLET PO SCH (08:13)
[2024-04-26 08:20] LABS: CALCIUM LEVEL 8.8 MG/DL (8.3-10.6); CREATININE FOR GFR 1.14 MG/DL (0.55-1.30); GLOMERULAR FILTRATION RATE 48.7 (>32); POTASSIUM SERUM 4.6 MMOL/L (3.5-5.1)
[2024-04-26] MEDS: CYANOCOBALAMIN 1,000MCG/ML 1ML VIAL IM SCH (09:28)
[2024-04-26 12:00] VITALS: BP 116/58; TEMP 97.3; O2SAT 99
[2024-04-26 20:00] VITALS: BP 114/56; TEMP 97.7; O2SAT 97
[2024-04-27 04:00] VITALS: BP 96/49; TEMP 97.5; O2SAT 95
[2024-04-27] MEDS: ACETAMINOPHEN TAB 650MG DOSE (2X325MG) PO PRN (04:09)
[2024-04-27 07:24] LABS: HEMATOCRIT 25.4 % (36.0-47.0); HEMOGLOBIN 8.1 g/dl (12.0-15.5); LYMPH # 0.4 10^3/uL (1.5-5.0); LYMPH % 3.6 % (24.0-44.0); MEAN CORPUSCULAR HEMOGLOBIN 30.8 pg (27.0-33.0); MEAN CORPUSCULAR HGB CONC 31.9 g/dl (32.0-36.5); MEAN CORPUSCULAR VOLUME 96.6 fl (80.0-96.0); MONO # 0.6 10^3/uL (0.0-0.8); MONO % 4.7 % (2.0-8.0); NEUTROPHILS # 10.6 10^3/uL (1.5-8.5); NEUTROPHILS % 90.8 % (36.0-66.0); PLATELET COUNT, AUTOMATED 135 10^3/uL (150-450); RED BLOOD COUNT 2.63 10^6/uL (4.00-5.40); WHITE BLOOD COUNT 11.7 10^3/uL (4.0-10.0)
[2024-04-27 07:43] LABS: CALCIUM LEVEL 8.9 MG/DL (8.3-10.6); CREATININE FOR GFR 1.25 MG/DL (0.55-1.30); GLOMERULAR FILTRATION RATE 43.8 (>32); POTASSIUM SERUM 4.8 MMOL/L (3.5-5.1)
[2024-04-27 07:55] VITALS: BP 124/68
[2024-04-27] MEDS: predniSONE 20 MG TAB PO SCH (08:31)
[2024-04-27 12:00] VITALS: BP 133/66; TEMP 97.2; O2SAT 99
[2024-04-27] MEDS: CEFDINIR 300 MG CAP (OMNICEF) PO SCH (14:17)
[2024-04-27 20:43] VITALS: BP 107/49; TEMP 97.2
[2024-04-28 05:08] VITALS: BP 111/59; TEMP 97.7
[2024-04-28 07:10] LABS: BASO % 0.1 % (0.0-1.0); HEMATOCRIT 26.7 % (36.0-47.0); HEMOGLOBIN 8.3 g/dl (12.0-15.5); LYMPH # 0.9 10^3/uL (1.5-5.0); LYMPH % 8.1 % (24.0-44.0); MEAN CORPUSCULAR HEMOGLOBIN 30.9 pg (27.0-33.0); MEAN CORPUSCULAR HGB CONC 31.1 g/dl (32.0-36.5); MEAN CORPUSCULAR VOLUME 99.3 fl (80.0-96.0); MONO # 0.8 10^3/uL (0.0-0.8); MONO % 6.9 % (2.0-8.0); NEUTROPHILS # 9.3 10^3/uL (1.5-8.5); NEUTROPHILS % 84.2 % (36.0-66.0); PLATELET COUNT, AUTOMATED 134 10^3/uL (150-450); RED BLOOD COUNT 2.69 10^6/uL (4.00-5.40)
[2024-04-28 07:42] LABS: CALCIUM LEVEL 8.7 MG/DL (8.3-10.6); CREATININE FOR GFR 1.22 MG/DL (0.55-1.30); POTASSIUM SERUM 4.1 MMOL/L (3.5-5.1)
[2024-04-28] MEDS: oxyCODONE 5MG TAB PO PRN (10:28)
[2024-04-28] MEDS: MORPHINE 2 MG/ML 1ML VIAL IV ONE (11:45)
[2024-04-28 12:00] VITALS: BP 153/70; TEMP 97.2; O2SAT 100
[2024-04-28 20:04] VITALS: BP 153/70; TEMP 97.5; O2SAT 100
[2024-04-28 20:30] VITALS: BP 159/60
[2024-04-29 04:15] VITALS: BP 112/58; TEMP 97.5; O2SAT 98
[2024-04-29 09:26] VITALS: BP 116/72
[2024-04-29 11:34] VITALS: BP 115/63; TEMP 97.7; O2SAT 99
[2024-04-29] MEDS ORDERED: OXYC-517 PO (12:12)
[2024-04-29] MEDS ORDERED: CEFD300CAP PO (12:12)
[2024-04-29] MEDS ORDERED: PRED10TA2 PO (12:12)
[2024-04-29] MEDS ORDERED: COLA100C5 PO (12:12)
== END 2024-04-29 15:20 | disposition home health service (06) | DRG 394 ==
LOC: M ED 10:47 → M ED INP 18:11 → M MS5PR 04-26 00:13
PROVIDERS: ADMIT Student in an Organized Health Care Education/Training Program; ATTEND Internal Medicine
DX: K52.0 Gastroenteritis and colitis due to radiation (principal); C83.33 Diffuse large B-cell lymphoma, intra-abdominal lymph nodes; R18.0 Malignant ascites; N39.0 Urinary tract infection, site not specified; K52.1 Toxic gastroenteritis and colitis; C81.91 Hodgkin lymphoma, unspecified, lymph nodes of head, face, and neck; I10 Essential (primary) hypertension; D63.0 Anemia in neoplastic disease; B96.1 Klebsiella pneumoniae [K. pneumoniae] as the cause of diseases classified elsewhere; E11.9 Type 2 diabetes mellitus without complications; K21.9 Gastro-esophageal reflux disease without esophagitis; T45.1X5A Adverse effect of antineoplastic and immunosuppressive drugs, initial encounter; J30.9 Allergic rhinitis, unspecified; E55.9 Vitamin D deficiency, unspecified; E03.9 Hypothyroidism, unspecified; Z90.49 Acquired absence of other specified parts of digestive tract; Z92.3 Personal history of irradiation; Z79.899 Other long term (current) drug therapy; Z79.890 Hormone replacement therapy

== ENCOUNTER 2024-05-09 19:36 | Inpatient (IN) | payer MEDICARE ==
[~2024-05-09] VITALS: Ht 160 cm; Wt 55.0 kg
[~2024-05-09 19:36] MED LIST changes: +CEFD300CAP PO; +OXYC-517 PO; +PRED10TA2 PO
[2024-05-09] MEDS: MORPHINE 2 MG/ML 1ML VIAL IV ONE (21:34)
[2024-05-09] MEDS: ONDANSETRON 4MG 2ML VIAL IV ONE (21:35)
[2024-05-09] MEDS: NS 500 ML IV ONE (21:37)
[2024-05-09 21:43] LABS: BASO % 0.1 % (0.0-1.0); HEMATOCRIT 25.2 % (36.0-47.0); HEMOGLOBIN 8.2 g/dl (12.0-15.5); LYMPH # 0.7 10^3/uL (1.5-5.0); LYMPH % 3.8 % (24.0-44.0); MEAN CORPUSCULAR HEMOGLOBIN 31.2 pg (27.0-33.0); MEAN CORPUSCULAR HGB CONC 32.5 g/dl (32.0-36.5); MEAN CORPUSCULAR VOLUME 95.8 fl (80.0-96.0); MONO % 5.5 % (2.0-8.0); NEUTROPHILS # 15.6 10^3/uL (1.5-8.5); PLATELET COUNT, AUTOMATED 123 10^3/uL (150-450); RED BLOOD COUNT 2.63 10^6/uL (4.00-5.40); WHITE BLOOD COUNT 17.3 10^3/uL (4.0-10.0)
[2024-05-09 22:16] LABS: ALBUMIN 3.1 G/DL (3.2-5.2); BILIRUBIN,DIRECT 0.4 MG/DL (<0.4); BILIRUBIN,TOTAL 1.4 MG/DL (0.3-1.2); TOTAL PROTEIN 5.7 G/DL (5.7-8.2)
[2024-05-09] MEDS: MORPHINE 4 MG/ML 1ML VIAL IV ONE (22:41)
[2024-05-09 22:54] LABS: CK-MB VALUE MASS < 1.0 NG/ML (<3.6)
[2024-05-09 22:58] LABS: CPK CREATINE PHOSPHOKINASE 54 U/L (34-145); MB/CK RELATIVE INDEX 1.85 (< OR =4)
[2024-05-09] MEDS: PIPERACILLIN/TAZOBACTAM SOD 4.5 GM in D5W MINI-BAG PLUS 50 ML IV ONE (23:08)
[2024-05-09] MEDS: NS 1,650 ML in IV 1 EA IV ONE (23:11)
[2024-05-09] MEDS ORDERED: ISOVUE-370 76% 100ML VIAL As Ordered ONE (23:29)
[2024-05-10] MEDS: hydrALAZINE 20MG/ML 1ML VIAL IV STA (01:27)
[2024-05-10] MEDS ORDERED: DOCU-160 PO (01:37)
[2024-05-10] MEDS ORDERED: LEVO25TA5 PO (01:37)
[2024-05-10] MEDS ORDERED: HOME MED LIST COMPLETE! XX SCH (01:40)
[2024-05-10] MEDS ORDERED: ACETAMINOPHEN TAB 650MG DOSE (2X325MG) PO PRN (02:05)
[2024-05-10] MEDS ORDERED: ACETAMINOPHEN 500 MG TAB PO PRN (02:05)
[2024-05-10] MEDS ORDERED: MOM 30ML SUSPENSION UDC PO PRN (02:05)
[2024-05-10] MEDS: ONDANSETRON 4MG 2ML VIAL IV ONE (02:06)
[2024-05-10] MEDS: MORPHINE 4 MG/ML 1ML VIAL IV ONE (02:06)
[2024-05-10] MEDS: NS 1,000 ML IV SCH (02:30)
[2024-05-10] MEDS: methylPREDNISolone 40MG 1ML VIAL IV ONE (02:48)
[2024-05-10] MEDS ORDERED: GLUCOSE 4 GM CHEW PO PRN ×2 (03:20→10:05)
[2024-05-10] MEDS ORDERED: DEXTROSE 50% 50ML SYRINGE IV PRN ×2 (03:20→10:05)
[2024-05-10] MEDS ORDERED: GLUCAGON INJ 1MG VIAL SC PRN ×2 (03:20→10:05)
[2024-05-10] MEDS: HYDROMORPHONE HCL 0.5 MG/ 0.5 ML SYRINGE IV ONE (03:35)
[2024-05-10 03:57] LABS: BLOOD UREA NITROGEN 20 MG/DL (9-23); CALCIUM LEVEL 8.5 MG/DL (8.3-10.6); CARBON DIOXIDE LEVEL 25 MMOL/L (20-31); CHLORIDE LEVEL 104 MMOL/L (98-107); CREATININE FOR GFR 0.82 MG/DL (0.55-1.30); GLOMERULAR FILTRATION RATE > 60.0 (>32); GLUCOSE, FASTING 228 MG/DL (74-106); POTASSIUM SERUM 3.6 MMOL/L (3.5-5.1); SODIUM LEVEL 137 MMOL/L (136-145)
[2024-05-10] MEDS: PANTOPRAZOLE 40MG VIAL IV SCH (04:04)
[2024-05-10] MEDS: LABETALOL 100MG/20ML VIAL IV ONE (04:05)
[2024-05-10] MEDS ORDERED: PIPERACILLIN/TAZOBACTAM SOD 4.5 GM in D5W MINI-BAG PLUS 50 ML IV SCH (05:00)
[2024-05-10] MEDS: PIPERACILLIN/TAZOBACTAM SOD 3.375 GM in D5W MINI-BAG PLUS 50 ML IV SCH (05:18)
[2024-05-10] MEDS: LEVOTHYROXINE 50MCG TABLET (0.05MG) PO SCH (05:54)
[2024-05-10] MEDS: INSULIN LISPRO (NovoLOG) PER UNIT SC SCH (06:00)
[2024-05-10 06:34] LABS: HEMATOCRIT 28.5 % (36.0-47.0); HEMOGLOBIN 9.3 g/dl (12.0-15.5); MEAN CORPUSCULAR HEMOGLOBIN 30.9 pg (27.0-33.0); MEAN CORPUSCULAR HGB CONC 32.6 g/dl (32.0-36.5); MEAN CORPUSCULAR VOLUME 94.7 fl (80.0-96.0); PLATELET COUNT, AUTOMATED 132 10^3/uL (150-450); RED BLOOD COUNT 3.01 10^6/uL (4.00-5.40); WHITE BLOOD COUNT 18.8 10^3/uL (4.0-10.0)
[2024-05-10 07:00] LABS: BLOOD UREA NITROGEN 18 MG/DL (9-23); CALCIUM LEVEL 8.5 MG/DL (8.3-10.6); CARBON DIOXIDE LEVEL 26 MMOL/L (20-31); CHLORIDE LEVEL 102 MMOL/L (98-107); CREATININE FOR GFR 0.79 MG/DL (0.55-1.30); GLOMERULAR FILTRATION RATE > 60.0 (>32); GLUCOSE, FASTING 247 MG/DL (74-106); POTASSIUM SERUM 3.8 MMOL/L (3.5-5.1); SODIUM LEVEL 133 MMOL/L (136-145)
[2024-05-10] MEDS: VITAMIN D 1,000 INTERNATIONAL UNITS TABLET PO SCH (09:00)
[2024-05-10] MEDS: DOCUSATE SODIUM 100MG CAPSULE PO SCH (09:00)
[2024-05-10] MEDS: ASCORBIC ACID 500 MG TAB PO SCH (09:00)
[2024-05-10] MEDS ORDERED: predniSONE 10MG TAB PO SCH (09:00)
[2024-05-10] MEDS ORDERED: predniSONE 20 MG TAB PO SCH (09:00)
[2024-05-10] MEDS ORDERED: SUGAMMADEX SODIUM 500 MG/5 ML VIAL (BRIDION) As Ordered ONE (09:59)
[2024-05-10] MEDS ORDERED: methylPREDNISolone 40MG 1ML VIAL As Ordered ONE (09:59)
[2024-05-10] MEDS ORDERED: LIDOCAINE 2% 100MG/5ML SDV (FOR ANES.) As Ordered ONE (09:59)
[2024-05-10] MEDS ORDERED: KETOROLAC 60MG 2ML VIAL As Ordered ONE (09:59)
[2024-05-10] MEDS ORDERED: ROCURONIUM BROMIDE 50MG/5ML VIAL As Ordered ONE (09:59)
[2024-05-10] MEDS ORDERED: HYDROmorphone HCL 2MG/ML 1ML VIAL As Ordered ONE (09:59)
[2024-05-10] MEDS ORDERED: ONDANSETRON 4MG 2ML VIAL As Ordered ONE (09:59)
[2024-05-10] MEDS ORDERED: propofoL 200 MG/20 ML VIAL As Ordered ONE (09:59)
[2024-05-10] MEDS ORDERED: METOPROLOL 5 MG/5 ML VIAL As Ordered ONE (09:59)
[2024-05-10] MEDS ORDERED: MIDAZOLAM INJ 2MG/2ML VIAL As Ordered ONE (09:59)
[2024-05-10] MEDS ORDERED: ACETAMINOPHEN 1000MG 100ML IV BAG As Ordered ONE (09:59)
[2024-05-10] MEDS ORDERED: fentaNYL 100 MCG/2 ML INJECTION As Ordered ONE (09:59)
[2024-05-10] MEDS ORDERED: SUCCINYLCHOLINE 100MG/5ML SYRINGE As Ordered ONE (09:59)
[2024-05-10] MEDS: LR 1,000 ML IV SCH (10:05)
[2024-05-10] MEDS ORDERED: HYDROMORPHONE HCL 0.5 MG/ 0.5 ML SYRINGE IV PRN (10:05)
[2024-05-10] MEDS ORDERED: INSULIN LISPRO (NovoLOG) PER UNIT SC PRN (10:05)
[2024-05-10] MEDS ORDERED: fentaNYL 100 MCG/2 ML INJECTION IV PRN (10:05)
[2024-05-10] MEDS ORDERED: diphenhydrAMINE 50MG/ML VIAL IV PRN (10:05)
[2024-05-10] MEDS ORDERED: MEPERIDINE 25 MG/ML 1ML VIAL IV PRN (10:05)
[2024-05-10] MEDS ORDERED: ONDANSETRON 4MG 2ML VIAL IV PRN (10:05)
[2024-05-10 11:00] VITALS: BP 161/70; TEMP 97.9; O2SAT 99
[2024-05-10] MEDS: D5W/0.45% SODIUM CHLORIDE 1,000 ML IV SCH (11:20)
[2024-05-10] MEDS: hydrALAZINE 20MG/ML 1ML VIAL IV SCH (11:23)
[2024-05-10 12:00] VITALS: BP 108/56; O2SAT 99
[2024-05-10 16:00] VITALS: BP 122/58; TEMP 97.6; O2SAT 97
[2024-05-10 18:00] VITALS: BP 123/58; O2SAT 96
[2024-05-10 20:00] VITALS: BP 123/59; TEMP 98.6; O2SAT 96
[2024-05-10] MEDS ORDERED: methylPREDNISolone 40MG 1ML VIAL IV SCH (21:00)
[2024-05-10] MEDS ORDERED: HEPARIN SOD (PORCINE) 5000UNITS/ML 1ML VIAL/SYRINGE SQ SCH (21:00)
[2024-05-11] VITALS: BP 148/67; TEMP 98.9; O2SAT 96
[2024-05-11] MEDS: MORPHINE 4 MG/ML 1ML VIAL IV PRN (03:03)
[2024-05-11 04:00] VITALS: BP 146/70; TEMP 98.4; O2SAT 98
[2024-05-11 08:00] VITALS: BP 157/72; TEMP 97.8; O2SAT 94
[2024-05-11] MEDS: MORPHINE 2 MG/ML 1ML VIAL IV PRN (08:06)
[2024-05-11 09:45] VITALS: BP 162/72
[2024-05-11] MEDS: LEVOTHYROXINE 100MCG (0.1MG) 5ML SDV PF (SOLUTION FORM) IV SCH (09:51)
[2024-05-11 12:00] VITALS: BP 126/60; TEMP 98.3; O2SAT 96
[2024-05-11 15:03] LABS: BASO % 0.1 % (0.0-1.0); EOS # 0.1 10^3/uL (0.0-0.5); EOS % 0.6 % (0.0-3.0); HEMATOCRIT 24.9 % (36.0-47.0); HEMOGLOBIN 7.9 g/dl (12.0-15.5); LYMPH # 0.4 10^3/uL (1.5-5.0); LYMPH % 4.5 % (24.0-44.0); MEAN CORPUSCULAR HEMOGLOBIN 30.6 pg (27.0-33.0); MEAN CORPUSCULAR HGB CONC 31.7 g/dl (32.0-36.5); MEAN CORPUSCULAR VOLUME 96.5 fl (80.0-96.0); MONO # 0.6 10^3/uL (0.0-0.8); MONO % 6.9 % (2.0-8.0); NEUTROPHILS # 7.2 10^3/uL (1.5-8.5); NEUTROPHILS % 87.5 % (36.0-66.0); PLATELET COUNT, AUTOMATED 101 10^3/uL (150-450); RED BLOOD COUNT 2.58 10^6/uL (4.00-5.40); WHITE BLOOD COUNT 8.3 10^3/uL (4.0-10.0)
[2024-05-11 15:11] LABS: ALBUMIN 2.3 G/DL (3.2-5.2); BILIRUBIN,TOTAL 1.8 MG/DL (0.3-1.2); CALCIUM LEVEL 7.6 MG/DL (8.3-10.6); CREATININE FOR GFR 1.07 MG/DL (0.55-1.30); GLOMERULAR FILTRATION RATE 52.4 (>32); MAGNESIUM LEVEL 1.4 MG/DL (1.8-2.4); PHOSPHORUS LEVEL 1.7 MG/DL (2.4-5.1); POTASSIUM SERUM 3.5 MMOL/L (3.5-5.1); TOTAL PROTEIN 4.6 G/DL (5.7-8.2)
[2024-05-12] MEDS ORDERED: predniSONE 10MG TAB PO SCH (09:00)
[2024-05-12] MEDS ORDERED: ATROPINE SULFATE 1% OPHTH SOLN 2ML BTL SL PRN ×2 (14:15→14:20)
[2024-05-12] MEDS ORDERED: ONDANSETRON 4MG ORAL DISINTEGRATING TAB PO PRN (14:15)
[2024-05-12] MEDS ORDERED: LORazepam 2 MG/ML 1ML VIAL IV PRN (14:15)
[2024-05-12] MEDS ORDERED: MORPHINE 10MG/0.5ML ORAL CONCENTRATE SOLUTION U/D SL PRN (14:15)
[2024-05-12] MEDS ORDERED: PROMETHAZINE 25MG SUPP PR PRN (14:20)
[2024-05-12] MEDS ORDERED: MORPHINE 4 MG/ML 1ML VIAL IV PRN (14:25)
[2024-05-12] MEDS: ONDANSETRON 4MG 2ML VIAL IV SCH (14:29)
[2024-05-12] MEDS: SCOPOLAMINE 1MG TRANSDERMAL PATCH TOP SCH (14:29)
[2024-05-12] MEDS: ONDANSETRON 4MG ORAL DISINTEGRATING TAB SL SCH (14:46)
[2024-05-12] MEDS: MORPHINE 10MG/0.5ML ORAL CONCENTRATE SOLUTION U/D SL SCH (16:27)
[2024-05-12] MEDS ORDERED: ACETAMINOPHEN 500 MG TAB PO PRN (20:05)
[2024-05-17] MEDS ORDERED: predniSONE 20 MG TAB PO SCH (09:00)
[2024-05-17] MEDS: MYCOLOG CREAM 15GM (NYSTATIN/TRIAMCINOLONE) TOP PRN (09:53)
[2024-05-19] MEDS: SENOKOT S TAB PO SCH (10:30)
[2024-05-19] MEDS: LORazepam 1 MG TAB PO SCH (20:39)
[2024-05-20 22:48] VITALS: BP 126/60; TEMP 98.3; O2SAT 96
[2024-05-21] MEDS: LORazepam 1 MG TAB SL PRN (07:50)
[2024-05-21] MEDS ORDERED: MORP1SOL5 PO (09:57)
[2024-05-21] MEDS ORDERED: HYOS125TA PO (09:57)
[2024-05-21] MEDS ORDERED: ATIV1TAB10 PO (09:57)
[2024-05-22] MEDS ORDERED: predniSONE 10MG TAB PO SCH (09:00)
== END 2024-05-21 12:45 | disposition hospice, home (50) | DRG 330 ==
LOC: M ED 19:36 → M ED INP 05-10 02:03 → M ICU 05-10 10:53 → M MS5PR 05-11 22:21
PROVIDERS: ADMIT Student in an Organized Health Care Education/Training Program; ATTEND Family Medicine
PROC: 0DB80ZZ Excision of Small Intestine, Open Approach (ICD-10-PCS; principal; 2024-05-10 07:00)
DX: K55.9 Vascular disorder of intestine, unspecified (principal); C85.10 Unspecified B-cell lymphoma, unspecified site; C81.90 Hodgkin lymphoma, unspecified, unspecified site; Z66 Do not resuscitate; I16.0 Hypertensive urgency; I10 Essential (primary) hypertension; E11.9 Type 2 diabetes mellitus without complications; K21.9 Gastro-esophageal reflux disease without esophagitis; E03.9 Hypothyroidism, unspecified; Z90.49 Acquired absence of other specified parts of digestive tract; Z79.890 Hormone replacement therapy; Z79.52 Long term (current) use of systemic steroids; Z79.899 Other long term (current) drug therapy; Z53.31 Laparoscopic surgical procedure converted to open procedure; D69.6 Thrombocytopenia, unspecified